=== PATIENT | male | born 1935 | race American Indian/Alaskan Native ===

== ENCOUNTER 2017-11-14 10:44 | Outpatient (CLI) | payer MEDICARE ==
--- NOTE | 2017-11-14 11:49 | Cat Scan Report ---
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 No mucosal thickening, fluid level or mass. Right mastoid air cells are well pneumatized. Right middle ear and the external ear and internal ear appears unremarkable. Internal auditory canal appears normal. The left external and internal auditory canals and middle ear appears unremarkable. There is opacification noted of the left mastoid air cells with air fluid levels. Impression: Acute left mastoiditis with air fluid levels suggestive abscesses.
== END 2017-11-14 10:45 | disposition home or self-care (01) ==
LOC: CT 10:44
PROVIDERS: ATTEND Otolaryngology
DX: H65.22 Chronic serous otitis media, left ear (principal); H70.002 Acute mastoiditis without complications, left ear; I10 Essential (primary) hypertension; J44.9 Chronic obstructive pulmonary disease, unspecified; J45.909 Unspecified asthma, uncomplicated; E78.00 Pure hypercholesterolemia, unspecified
CPT/HCPCS: 36415; 70480; 82565; 84520

== ENCOUNTER 2017-11-27 10:42 | Inpatient (IN) | payer MEDICARE ==
[2017-11-27 13:42] LABS: Basophils # (Auto) 0.1 K/mm3 (0.0-0.1); Basophils % (Auto) 0.8 % (0.0-1.8); Eosinophils % (Auto) 0.2 % (0.0-4.3); Hematocrit 38.4 % (35.5-45.6); Hemoglobin 12.8 gm/dl (11.8-15.2); Lymphocytes # (Auto) 0.9 K/mm3 (1.2-5.4); Lymphocytes % (Auto) 8.4 % (13.4-35.0); Mean Corpuscular HGB Conc 33 % (32-34); Mean Corpuscular Hemoglobin 29 pg (28-32); Mean Corpuscular Volume 86 fl (84-94); Monocytes # (Auto) 0.6 K/mm3 (0.0-0.8); Monocytes % (Auto) 5.8 % (0.0-7.3); Platelet Count 192 K/mm3 (140-440); Red Blood Count 4.47 M/mm3 (3.65-5.03); Red Cell Distribution Width 13.3 % (13.2-15.2)
[2017-11-27] MEDS ORDERED: NACL 0.9% 1000 ML 1,000 ML IV ONE (13:48)
--- NOTE | 2017-11-27 13:48 | Emergency Department Report ---
- General Chief complaint: Weakness Stated complaint: LATHARGIC Time Seen by Provider: 11/27/17 13:44 Source: patient Mode of arrival: Stretcher Limitations: No Limitations - History of Present Illness Initial comments: Patient is a 82-year-old male who is presenting with weakness. The patient's daughter states that 2 days ago he was unable to get himself out of has been laying in bed since. Patient has not been eating and drinking well for several weeks. MD Complaint: generalized weakness Onset/Timin -: Gradual, week(s) Location: generalized Severity: moderate Improves with: none Worsens with: none Associated Symptoms: loss of appetite. denies: chest pain, confusion, dark stools, dysuria, easy bruising, fever/chills, headaches, nausea/vomiting, myalgias, shortness of breath - Related Data Home Medications Medication Instructions Recorded Confirmed Last Taken Simvastatin 20 mg PO QDAY 07/19/13 05/17/15 05/16/15 NIFEdipine [NIFEdipine ER] 60 mg PO DAILY 05/17/15 05/17/15 05/17/15 Allergies Allergy/AdvReac Type Severity Reaction Status Date / Time ibuprofen Allergy Hives Verified 11/27/17 11:50 nitroglycerin Allergy Rash Verified 07/19/13 14:37 [From Nitro-Dur] ED Review of Systems ROS: Stated complaint: LATHARGIC Other details as noted in HPI Comment: All other systems reviewed and negative ED Past Medical Hx - Past Medical History Hx Hypertension: Yes Hx Heart Attack/AMI: No Hx Diabetes: Yes Hx Liver Disease: No Hx Renal Disease: Yes (acute renal failure secondary to obstruction 07/2013 ( resolved)) Hx Sickle Cell Disease: No Hx Headaches / Migraines: Yes ("MIGRAINES") Hx Seizures: No Hx Kidney Stones: Yes Hx Asthma: Yes Hx COPD: Yes ("touch of emphysema". does not use inhaler) Additional medical history: irregular heart beat - Surgical History Hx Pacemaker: No Hx Internal Defibrillator: No Additional Surgical History: hernia x 3. prostate surgery - Social History Smoking Status: Former Smoker Substance Use Type: None - Medications Home Medications: Home Medications Medication Instructions Recorded Confirmed Last Taken Type Simvastatin 20 mg PO QDAY 07/19/13 05/17/15 05/16/15 History NIFEdipine [NIFEdipine ER] 60 mg PO DAILY 05/17/15 05/17/15 05/17/15 History ED Physical Exam - General Limitations: No Limitations General appearance: alert, in no apparent distress - Head Head exam: Present: atraumatic, normocephalic - Eye Eye exam: Present: normal appearance - ENT ENT exam: Present: mucous membranes moist - Neck Neck exam: Present: normal inspection - Respiratory Respiratory exam: Present: normal lung sounds bilaterally. Absent: respiratory distress - Cardiovascular Cardiovascular Exam: Present: regular rate, normal rhythm. Absent: systolic murmur, diastolic murmur, rubs, gallop - GI/Abdominal GI/Abdominal exam: Present: soft, normal bowel sounds - Rectal Rectal exam: Present: deferred - Extremities Exam Extremities exam: Present: normal inspection - Back Exam Back exam: Present: normal inspection - Neurological Exam Neurological exam: Present: alert, oriented X3 - Psychiatric Psychiatric exam: Present: normal affect, normal mood - Skin Skin exam: Present: warm, dry, intact, normal color. Absent: rash ED Course Vital Signs 11/27/17 11:51 Temperature 97.9 F Pulse Rate 96 H Respiratory 16 Rate Blood Pressure 136/74 O2 Sat by Pulse 96 Oximetry ED Medical Decision Making - Lab Data Result diagrams: 11/27/17 13:05 11/27/17 13:05 - EKG Data -: EKG Interpreted by Me - EKG Data Interpretation: other (EKG shows sinus rhythm rate of 90 normal axis normal intervals is no ST segment elevations or depressions time of interpretation is 1342) - Medical Decision Making She was 82-year-old [place] male who is presenting with weakness patient was unable to ambulate stand last 2 days patient's has a baseline B and creatinine 20 and 1.4 on November 14 of this year today this is double patient is showing clinical signs of dehydration and will be admitted to Dr. Haynes at this time Critical care attestation.: If time is entered above; I have spent that time in minutes in the direct care of this critically ill patient, excluding procedure time. ED Disposition Clinical Impression: Acute renal injury, Dehydration Disposition: OP ADMIT IP TO THIS HOSP Is pt being admited?: Yes Does the pt Need Aspirin: No Condition: Stable
[2017-11-27 14:16] LABS: Calcium 8.9 mg/dL (8.4-10.2)
--- NOTE | 2017-11-27 14:58 | History and Physical Report ---
History of Present Illness Chief complaint: He keeps getting weak History of present illness: 82 YO Male with HTN, DM,COPD, ASthma, Nephrolithiasis, Migraine Headache, presents to ED for evaluation. Pt confused and unable to provide history, but history provided by . As per , the patient has experienced weakness, decreased appetite and resulting weight loss, and confusion over the past 2 months with worsening symptoms over the past 2 days. Over the past 2 days, pt has been unable to get himself out of bed, has not been eating and drinking, and has increased confusion. No reports of fever, chills, CP, Palpitations, NVD , Syncope, Trauma, BRBPR, Vertigo, Seizures, loss of bowel/bladder continence, neck pain, skin rash, or known recent ill contacts. Pt seen and evaluated in ED and found to have UTI, complicated by encephalopathy, and Acute Renal Failure. Pt admitted to medical floor. Pt is able to protect his airway. Past History Past Medical History: COPD, diabetes, hypertension, migraines, renal failure Past Surgical History: hernia repair, Other (Prostate Cancer surgery) Social history: , lives with family. denies: smoking, alcohol abuse, prescription drug abuse Family history: hypertension Medications and Allergies Allergies Allergy/AdvReac Type Severity Reaction Status Date / Time ibuprofen Allergy Hives Verified 11/27/17 11:50 nitroglycerin Allergy Rash Verified 07/19/13 14:37 [From Nitro-Dur] Home Medications Medication Instructions Recorded Confirmed Last Taken Type Simvastatin 20 mg PO QDAY 07/19/13 11/27/17 05/16/15 History Review of Systems ROS unobtainable: due to mental status Exam - Constitutional Vitals: Temp Pulse Resp BP Pulse Ox 97.9 F 96 H 16 136/74 96 11/27/17 11:51 11/27/17 11:51 11/27/17 11:51 11/27/17 11:51 11/27/17 11:51 General appearance: Present: mild distress, cachectic - EENT Eyes: Present: PERRL ENT: hearing intact, clear oral mucosa, poor dentition - Neck Neck: Present: supple, normal ROM - Respiratory Respiratory effort: normal Respiratory: bilateral: CTA - Cardiovascular Heart Sounds: Present: S1 & S2. Absent: rub, click - Extremities Extremities: pulses symmetrical, No edema Peripheral Pulses: within normal limits - Abdominal General gastrointestinal: Present: soft, non-tender, non-distended, normal bowel sounds Male genitourinary: Present: normal - Integumentary Integumentary: Present: clear, warm, dry - Musculoskeletal Musculoskeletal: gait normal, strength equal bilaterally - Psychiatric Psychiatric: appropriate mood/affect, intact judgment & insight - Neurologic Neurologic: CNII-XII intact, moves all extremities Results - Labs CBC & Chem 7: 11/27/17 13:05 11/27/17 13:05 Labs: Abnormal lab results 11/27/17 11/27/17 Range/Units 13:05 13:05 Lymph % (Auto) 8.4 L (13.4-35.0) % Lymph # 0.9 L (1.2-5.4) K/mm3 Seg Neutrophils % 84.8 H (40.0-70.0) % Seg Neutrophils # 9.2 H (1.8-7.7) K/mm3 Carbon Dioxide 20 L (22-30) mmol/L BUN 46 H (9-20) mg/dL Creatinine 2.0 H (0.8-1.5) mg/dL Glucose 180 H (75-100) mg/dL Albumin 3.0 L (3.9-5) g/dL Assessment and Plan - Patient Problems (1) UTI (urinary tract infection) Current Visit: Yes Status: Acute Plan to address problem: IV abx, IVF, monitor uop q shift, (2) Metabolic acidosis Current Visit: Yes Status: Acute Plan to address problem: IVF resuscitation, repeat bmp, treat uti (3) Encephalopathy Current Visit: Yes Status: Acute Plan to address problem: CT head, neuro checks, aspiration precautions, fall precautions, treat uti (4) Diabetes mellitus Current Visit: No Status: Chronic Qualifiers: Diabetes mellitus type: type 2 Diabetes mellitus complication detail: with chronic kidney disease Qualified Code(s): E11.22 - Type 2 diabetes mellitus with diabetic chronic kidney disease Plan to address problem: ADA diet, insulin, accu check (5) HTN (hypertension) Onset Date: 07/20/13 Current Visit: No Status: Chronic Qualifiers: Hypertension type: essential hypertension Qualified Code(s): I10 - Essential (primary) hypertension Plan to address problem: monitor BP q shift, continue medical management (6) ARF (acute renal failure) Current Visit: Yes Status: Acute Qualifiers: Acute renal failure type: with acute tubular necrosis Qualified Code(s): N17.0 - Acute kidney failure with tubular necrosis Plan to address problem: monitor uop q shift, urine electrolytes, IVF resuscitation,. (7) DVT prophylaxis Current Visit: Yes Status: Acute
[2017-11-27] MEDS ORDERED: ZOFRAN IV PRN (15:18)
[2017-11-27] MEDS ORDERED: MILK OF MAGNESIA PO PRN (15:18)
[2017-11-27] MEDS ORDERED: DULCOLAX PR PRN (15:18)
[2017-11-27] MEDS ORDERED: TYLENOL PO PRN (15:18)
[2017-11-27] MEDS ORDERED: PROVENTIL IH PRN (15:18)
[2017-11-27 15:42] LABS: Bacteria,Urine 2+ /HPF (Negative); Bilirubin,Urine NEG (Negative); Blood,Urine MOD (Negative); Color,Urine Yellow (Yellow); Mucus,Urine FEW /HPF; Nitrite,Urine NEG (Negative); Renal Epithelial Cells,Urine 3 /LPF; Urobilinogen,Urine < 2.0 mg/dL (<2.0)
[2017-11-27 15:43] LABS: WBC,Urine > 182.0 /HPF (0.0-6.0)
--- NOTE | 2017-11-27 15:49 | Cat Scan Report ---
FINAL REPORT EXAM: CT HEAD/BRAIN WO CON HISTORY: weakness/confusion TECHNIQUE: CT examination of the head without IV contrast PRIORS: Sinus CT 11/14/2017 FINDINGS: Multifocal opacity is again present in the left mastoid air cells. Small fluid level again noted inferiorly and posteriorly. Degree of opacity is slightly decreased. Once again, left middle ear cavity clear as are the right mastoid air cells and right middle ear cavity. Paranasal sinuses are clear. Bone windows demonstrate no acute fracture. There is ventricular and sulcal prominence compatible with global cerebrocortical atrophy. The brain contains no mass, mass effect, hemorrhage, or acute infarct. There is no extra-axial intracranial bleed, brain bleed, or midline shift. IMPRESSION: No acute CVA, intracranial bleed, or brain mass Decreased prominence of opacity in the left mastoid air cells. Small fluid levels remaining. Findings again may be secondary to eustachian tube dysfunction or slight improvement of acute left mastoiditis
[2017-11-27 18:04] LABS: Free T4 (Free Thyroxine) 1.45 ng/dL (0.76-1.46)
[2017-11-27] MEDS ORDERED: NACL 0.9% 250ML 250 ML IV ONE (20:00)
[2017-11-27] MEDS: cefTRIAXone 2 GM in NACL 0.9% 20 ML IV SCH (21:18)
[2017-11-27] MEDS ORDERED: PEPCID ONE (22:02)
[2017-11-27] MEDS: PEPCID PO SCH (22:15)
[2017-11-27] MEDS: PRAVACHOL PO SCH (23:10)
[2017-11-28 04:30] LABS: Creatinine,Urine 115.7 mg/dL (0.1-20.0)
[2017-11-28] MEDS: PEPCID PO SCH ×2 (09:06→21:34)
[2017-11-28] MEDS: PROCARDIA XL PO SCH (09:07)
[2017-11-28] MEDS ORDERED: D50W (25GM) Syringe IV PRN (09:30)
[2017-11-28] MEDS ORDERED: NON-FORMULARY (Nifedipine [Nifedipine Er] 60 MG) PO SCH (10:00)
[2017-11-28] MEDS ORDERED: ROCEPHIN/NS 2 GM/100 ML 2 GM/100 ML BAG IV SCH (10:00)
[2017-11-28] MEDS ORDERED: NON-FORMULARY (Simvastatin [Simvastatin] 20 MG) PO SCH (10:00)
[2017-11-28] MEDS: NACL 0.9% 1000 ML 1,000 ML IV SCH ×2 (11:08→22:57)
[2017-11-28 11:12] LABS: Calcium 8.9 mg/dL (8.4-10.2)
[2017-11-28] MEDS: NOVOLOG SUB-Q SCH ×3 (11:20→23:35)
--- NOTE | 2017-11-28 11:42 | Progress Note ---
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 Ruano per due to insurance issues who presents with confusion and failure to thrive symptoms. He is under the care of Dr. Watkins and had kidney function checked on 11/14/17 and creatinine was 1.4. Now his creatinine is 2.0 with evidence of UTI. -Suspect early sepsis as evident of HR 96, RR 20 with UTI, poa: on iv abx, I ordered urine culture and blood culture -ARF on CKD III: ordered ivf, consulted Dr. Watkins -Acute encephalopathy due to above, improved -Adult FTT and malnutrition, mild, albumin 3.0: consult melting supervisor, rehab offered but patient and declined at this time -H/o prostate cancer, lost to follow-up because Urologist's didn't take his insurance at that time: get renal u/s for obstructive symptoms, if positive consult urology, strongly encourage outpt urology follow up. -Uncontrolled dm type 2 with hyperglycemia: ada diet, start ssi History Interval history: Patient was seen and examined. Follow-up on current diagnosis of confusion. Overnight uneventful. Patient denies any chest pain, shortness breath, nausea/ vomiting or severe headaches. Imaging, nursing note, chart, labs and old chart reviewed. Discussed with patient. , brother and nephrew at bedside. Hospitalist Physical - Physical exam Narrative exam: GEN: thin frail NAD, AWAKE, ALERT, ORIENTATED x 3 HEENT: NCAT, EOMI, PERRL, OP Clear NECK: supple, no adenopathy, no thyromegaly, no JVD CVS/HEART: RRR, NORMAL S1S2, NO JVD, pulses present bilaterally CHEST/LUNGS: CTA B, Symmetrical chest expansion, good air entry bilaterally GI/Abdomen: soft, nontender, good bowel sounds, no guarding or rebound /Bladder: + suprapubic tenderness, no CVA or paraspinal tenderness EXT/Skin: no c/c/e, no obvious rash MSK: FROM x 4 Neuro: CN 2-12 grossly intact, no new focal deficits Psych: calm - Constitutional Vitals: Temp Pulse Resp BP Pulse Ox 98.7 F 83 16 125/72 95 11/28/17 07:34 11/28/17 10:00 11/28/17 07:34 11/28/17 07:34 11/28/17 08:56 General appearance: Present: cachectic. Absent: mild distress Results - Labs CBC & Chem 7: 11/27/17 13:05 11/28/17 10:16 Labs: Laboratory Last Values WBC 10.9 K/mm3 (4.5-11.0) 11/27/17 13:05 RBC 4.47 M/mm3 (3.65-5.03) 11/27/17 13:05 Hgb 12.8 gm/dl (11.8-15.2) 11/27/17 13:05 Hct 38.4 % (35.5-45.6) 11/27/17 13:05 MCV 86 fl (84-94) 11/27/17 13:05 MCH 29 pg (28-32) 11/27/17 13:05 MCHC 33 % (32-34) 11/27/17 13:05 RDW 13.3 % (13.2-15.2) 11/27/17 13:05 Plt Count 192 K/mm3 (140-440) 11/27/17 13:05 Lymph % (Auto) 8.4 % (13.4-35.0) L 11/27/17 13:05 [place] % (Auto) 5.8 % (0.0-7.3) 11/27/17 13:05 Eos % (Auto) 0.2 % (0.0-4.3) 11/27/17 13:05 Baso % (Auto) 0.8 % (0.0-1.8) 11/27/17 13:05 Lymph # 0.9 K/mm3 (1.2-5.4) L 11/27/17 13:05 [place] # 0.6 K/mm3 (0.0-0.8) 11/27/17 13:05 Eos # 0.0 K/mm3 (0.0-0.4) 11/27/17 13:05 Baso # 0.1 K/mm3 (0.0-0.1) 11/27/17 13:05 Seg Neutrophils % 84.8 % (40.0-70.0) H 11/27/17 13:05 Seg Neutrophils # 9.2 K/mm3 (1.8-7.7) H 11/27/17 13:05 Sodium 141 mmol/L (137-145) 11/28/17 10:16 Potassium 3.6 mmol/L (3.6-5.0) 11/28/17 10:16 Chloride 104.6 mmol/L (98-107) 11/28/17 10:16 Carbon Dioxide 21 mmol/L (22-30) L 11/28/17 10:16 Anion Gap 19 mmol/L 11/28/17 10:16 BUN 35 mg/dL (9-20) H 11/28/17 10:16 Creatinine 1.4 mg/dL (0.8-1.5) 11/28/17 10:16 Estimated GFR 59 ml/min 11/28/17 10:16 BUN/Creatinine Ratio 25 % 11/28/17 10:16 Glucose 194 mg/dL (75-100) H 11/28/17 10:16 POC Glucose 240 (70-105) H 11/28/17 11:19 Calcium 8.9 mg/dL (8.4-10.2) 11/28/17 10:16 Total Bilirubin 0.70 mg/dL (0.1-1.2) 11/27/17 13:05 AST 21 units/L (5-40) 11/27/17 13:05 ALT 15 units/L (7-56) 11/27/17 13:05 Alkaline Phosphatase 91 units/L (35-129) 11/27/17 13:05 Total Protein 7.1 g/dL (6.3-8.2) 11/27/17 13:05 Albumin 3.0 g/dL (3.9-5) L 11/27/17 13:05 Albumin/Globulin Ratio 0.7 % 11/27/17 13:05 TSH 1.380 mlU/mL (0.270-4.200) 11/27/17 15:35 Free T4 1.45 ng/dL (0.76-1.46) 11/27/17 15:35 Urine Color Yellow (Yellow) 11/27/17 15:10 Urine Turbidity Cloudy (Clear) 11/27/17 15:10 Urine pH 5.0 (5.0-7.0) 11/27/17 15:10 Ur Specific [place] 1.014 (1.003-1.030) 11/27/17 15:10 Urine Protein 30 mg/dl mg/dL (Negative) 11/27/17 15:10 Urine Glucose (UA) Neg mg/dL (Negative) 11/27/17 15:10 Urine Ketones Neg mg/dL (Negative) 11/27/17 15:10 Urine Blood Mod (Negative) 11/27/17 15:10 Urine Nitrite Neg (Negative) 11/27/17 15:10 Urine Bilirubin Neg (Negative) 11/27/17 15:10 Urine Urobilinogen < 2.0 mg/dL (<2.0) 11/27/17 15:10 Ur Leukocyte Esterase Lg (Negative) 11/27/17 15:10 Urine WBC (Auto) > 182.0 /HPF (0.0-6.0) H 11/27/17 15:10 Urine RBC (Auto) 24.0 /HPF (0.0-6.0) 11/27/17 15:10 U Epithel Cells (Auto) 1.0 /HPF (0-13.0) 11/27/17 15:10 Urine Bacteria (Auto) 2+ /HPF (Negative) 11/27/17 15:10 Urine WBC Clumps 2+ /HPF 11/27/17 15:10 Ur Renal Epithelial Cell 3 /LPF 11/27/17 15:10 Urine Mucus Few /HPF 11/27/17 15:10 Urine Creatinine 115.7 mg/dL (0.1-20.0) H 11/28/17 04:00 Urine Sodium 27 mmol/L 11/28/17 04:00
--- NOTE | 2017-11-28 14:35 | Ultrasound Report ---
ULTRASOUND RENAL INDICATION: Acute renal failure, prostate cancer. COMPARISON: 05/17/2015. FINDINGS: Renal sonography again suggests top normal/borderline renal cortical echogenicity. Grossly preserved contours. No hydronephrosis. RIGHT KIDNEY measures 10.3 x 4 x 4.3 cm with cortical thickness of 1.1 cm. A 1.6 x 1.4 cm right upper renal cortical cyst again noted. LEFT KIDNEY estimated at 10.5 x 4.7 x 5.2 cm with cortical thickness of 1.5 cm. URINARY BLADDER suboptimally distended and assessed. CONCLUSION: No acute renal abnormality with stable right renal cyst and slight underlying medical renal disease possible sonographically, as described. Please correlate. Thank you for the opportunity to participate in this patient's care.
--- NOTE | 2017-11-28 14:46 | Consultation ---
History of Present Illness - Reason for Consult Consult date: 11/28/17 acute renal failure, chronic renal failure Requesting physician: ISAIAH DAVIS - History of Present Illness This is a 82yo AA M with history of HTN, DM, COPD, Asthma, Nephrolithiasis, CKD stage [address] Watkins in our office, who presents to ED with complaints of confusion, generalized fatigue, weakness and poor appetite. As per pt's above symptoms progressed over the past 2 months. Sympoms worsened over the last 2 days, to the point that pt was not able to get himself out of bed, has not been eating and drinking, and has increased confusion. Labs showed evidence of UTI on UA, BUN/Cr was elevated at 46/2.0mg/dl from baseline Cr at around 1/3- 1.6mg/dl as outpatient. Renal consult is requested for management of JAMEY on CKD. pt seen and examined at bedside, more awake, alert today after receiving IVF, denies fever, chills, nausea, vomiting, diarrhea, constipation, CP, SOB, palpitations. pt denies recent NSAIDs use, or IV contrast exposure. Past History Past Medical History: COPD, diabetes, hypertension, migraines, renal failure Past Surgical History: hernia repair, Other (Prostate Cancer surgery) Social history: , lives with family. denies: smoking, alcohol abuse, prescription drug abuse Family history: hypertension Medications and Allergies Allergies Allergy/AdvReac Type Severity Reaction Status Date / Time ibuprofen Allergy Hives Verified 11/27/17 11:50 nitroglycerin Allergy Rash Verified 07/19/13 14:37 [From Nitro-Dur] Home Medications Medication Instructions Recorded Confirmed Last Taken Type Simvastatin 20 mg PO QDAY 07/19/13 11/27/17 05/16/15 History ALBUTEROL Inhaler 90 mcg INHALATION PRN PRN 11/27/17 11/27/17 Unknown History Augmentin 875-125 Tablet 875 mg PO DAILY 11/27/17 11/27/17 Unknown History Doxazosin 2 mg PO DAILY 11/27/17 11/27/17 Unknown History Fluticasone Furoate 50 mcg INHALATION DAILY 11/27/17 11/27/17 Unknown History Folic Acid 1 mg PO DAILY 11/27/17 11/27/17 Unknown History Furosemide 40 mg PO DAILY 11/27/17 11/27/17 Unknown History Gabapentin 100 mg PO BID 11/27/17 11/27/17 Unknown History Glipizide 5 mg PO DAILY 11/27/17 11/27/17 Unknown History Klor-Con M10 10 meq PO DAILY 11/27/17 11/27/17 Unknown History Losartan Potassium 100 mg PO DAILY 11/27/17 11/27/17 Unknown History Metoprolol Succinate 50 mg PO BID 11/27/17 11/27/17 Unknown History Vitamin D2 50,000 units PO QWEEK 11/27/17 11/27/17 Unknown History Active Meds: Active Medications Acetaminophen (Tylenol) 650 mg PO Q4H PRN PRN Reason: Pain MILD(1-3)/Fever >100.5/TAVARES Albuterol (Proventil) 2.5 mg IH Q4HRT PRN PRN Reason: Shortness Of Breath Bisacodyl (Dulcolax) 10 mg MI QDAY PRN PRN Reason: Constipation unrelieved by MOM Dextrose (D50w (25gm) Syringe) 50 ml IV PRN PRN PRN Reason: Hypoglycemia Famotidine (Pepcid) 20 mg PO BID [facility] Last Admin: 11/28/17 09:06 Dose: 20 mg Ceftriaxone Sodium 2 gm/ (Sodium Chloride) 20 mls @ 20 mls/10 min IV Q24H [facility] Last Admin: 11/27/17 21:18 Dose: 20 mls/10 min Sodium Chloride (Nacl 0.9% 1000 Ml) 1,000 mls @ 100 mls/hr IV DIRECT [facility] Last Admin: 11/28/17 11:08 Dose: 100 mls/hr Insulin Aspart (Novolog) 0 units SUB-Q ACHS [facility] PRN Reason: Protocol Last Admin: 11/28/17 11:20 Dose: 2 units Nifedipine (Procardia Xl) 60 mg PO QDAY [facility] Last Admin: 11/28/17 09:07 Dose: 60 mg Ondansetron HCl (Zofran) 4 mg IV Q8H PRN PRN Reason: N/V unrelieved by Reglan Pravastatin Sodium (Pravachol) 40 mg PO QHS [facility] Last Admin: 11/27/17 23:10 Dose: 40 mg Review of Systems All systems: negative Constitutional: weight loss, fatigue, weakness, poor appetite Exam - Vital Signs Vital signs: Vital Signs Temp Pulse Resp BP Pulse Ox 97.9 F 96 H 16 136/74 96 11/27/17 11:51 11/27/17 11:51 11/27/17 11:51 11/27/17 11:51 11/27/17 11:51 - General Appearance General appearance: appears stated age, frail EENT: ATNC, PERRL, mucous membranes dry Neck: Present: neck supple Respiratory: Clear to Ascultation Heart: regular, S1S2 Gastrointestinal: Present: normoactive bowel sounds Integumentary: no rash, other (no edema ) Neurologic: no focal deficit, alert and oriented x3, strength 5/5, CN 3-12 intact Psychiatric: mood/affect appropriate, cooperative Results - Lab Results 11/27/17 13:05 11/28/17 10:16 Most recent lab results Calcium 8.9 mg/dL (8.4-10.2) 11/28/17 10:16 Urine Creatinine 115.7 mg/dL (0.1-20.0) H 11/28/17 04:00 Urine Sodium 27 mmol/L 11/28/17 04:00 Laboratory Tests 11/27/17 11/27/17 11/27/17 13:05 15:10 15:35 Calcium 8.9 Total Bilirubin 0.70 AST 21 ALT 15 Alkaline Phosphatase 91 Total Protein 7.1 Albumin 3.0 L Albumin/Globulin Ratio 0.7 TSH 1.380 Free T4 1.45 Urine Color Yellow Urine Turbidity Cloudy Urine pH 5.0 Ur Specific [place] 1.014 Urine Protein 30 mg/dl Urine Glucose (UA) Neg Urine Ketones Neg Urine Blood Mod Urine Nitrite Neg Urine Urobilinogen < 2.0 Ur Leukocyte Esterase Lg Urine WBC (Auto) > 182.0 H Urine RBC (Auto) 24.0 U Epithel Cells (Auto) 1.0 Urine Bacteria (Auto) 2+ Urine WBC Clumps 2+ Ur Renal Epithelial Cell 3 Urine Mucus Few Urine Creatinine Urine Sodium 11/28/17 04:00 Calcium Total Bilirubin AST ALT Alkaline Phosphatase Total Protein Albumin Albumin/Globulin Ratio TSH Free T4 Urine Color Urine Turbidity Urine pH Ur Specific [place] Urine Protein Urine Glucose (UA) Urine Ketones Urine Blood Urine Nitrite Urine Urobilinogen Ur Leukocyte Esterase Urine WBC (Auto) Urine RBC (Auto) U Epithel Cells (Auto) Urine Bacteria (Auto) Urine WBC Clumps Ur Renal Epithelial Cell Urine Mucus Urine Creatinine 115.7 H Urine Sodium 27 Assessment and Plan - Patient Problems (1) Acute renal injury Current Visit: Yes Status: Acute Plan to address problem: most likely pre-renal azotemia in the setting of decreased po intake. Urine Na low at 27. renal function improving already with IVF. Cont NS at 100ml/hr, cont ABXs for treatment of UTI, avoid nephrotoxins, NSAIDs , IV contrast. Will monitor lytes/renal indices and make further recommendations. (2) Dehydration Current Visit: Yes Status: Acute Plan to address problem: cont IV NS (3) UTI (urinary tract infection) Current Visit: Yes Status: Acute Plan to address problem: cont ABX w/ rocephin, no renal adjustment needed. (4) Chronic kidney disease, stage III (moderate) Current Visit: No Status: Chronic Plan to address problem: likely due to underlying hypertensive nephrosclerosis (5) Diabetes mellitus Current Visit: No Status: Chronic Qualifiers: Diabetes mellitus type: type 2 Diabetes mellitus complication detail: with chronic kidney disease Qualified Code(s): E11.22 - Type 2 diabetes mellitus with diabetic chronic kidney disease Plan to address problem: glucose control as per primary attending (6) HTN (hypertension) Onset Date: 07/20/13 Current Visit: No Status: Chronic Qualifiers: Hypertension type: essential hypertension Qualified Code(s): I10 - Essential (primary) hypertension Plan to address problem: BP controlled
[2017-11-28] MEDS: cefTRIAXone 2 GM in NACL 0.9% 20 ML IV SCH (17:45)
[2017-11-28] MEDS: PRAVACHOL PO SCH (21:34)
[2017-11-29 05:22] LABS: Hematocrit 34.2 % (35.5-45.6); Hemoglobin 11.1 gm/dl (11.8-15.2); Mean Corpuscular HGB Conc 33 % (32-34); Mean Corpuscular Hemoglobin 28 pg (28-32); Mean Corpuscular Volume 86 fl (84-94); Platelet Count 221 K/mm3 (140-440); Red Blood Count 3.99 M/mm3 (3.65-5.03); Red Cell Distribution Width 13.4 % (13.2-15.2)
[2017-11-29 05:49] LABS: BUN/Creatinine Ratio 18; Blood Urea Nitrogen 21 mg/dL (9-20); Calcium 7.9 mg/dL (8.4-10.2); Hemolysis Index 0
[2017-11-29] MEDS: NOVOLOG SUB-Q SCH ×4 (07:30→22:26)
[2017-11-29] MEDS: PROCARDIA XL PO SCH (11:28)
[2017-11-29] MEDS: PEPCID PO SCH ×2 (11:28→22:07)
[2017-11-29] MEDS: NACL 0.9% 1000 ML 1,000 ML IV SCH (11:29)
--- NOTE | 2017-11-29 12:42 | Progress Note ---
Assessment and Plan - Patient Problems (1) Acute renal injury Current Visit: Yes Status: Acute Plan to address problem: most likely pre-renal azotemia in the setting of decreased po intake. renal function improving with IVF. Cont NS at 50ml/hr until po intake improved, cont ABXs for treatment of UTI, awaiting UCx result. (2) Dehydration Current Visit: Yes Status: Acute Plan to address problem: cont IV NS (3) UTI (urinary tract infection) Current Visit: Yes Status: Acute Plan to address problem: cont ABX w/ rocephin, no renal adjustment needed. awaiting UCx (4) Chronic kidney disease, stage III (moderate) Current Visit: No Status: Chronic Plan to address problem: likely due to underlying hypertensive nephrosclerosis (5) Diabetes mellitus Current Visit: No Status: Chronic Qualifiers: Diabetes mellitus type: type 2 Diabetes mellitus complication detail: with chronic kidney disease Qualified Code(s): E11.22 - Type 2 diabetes mellitus with diabetic chronic kidney disease Plan to address problem: glucose control as per primary attending (6) HTN (hypertension) Onset Date: 07/20/13 Current Visit: No Status: Chronic Qualifiers: Hypertension type: essential hypertension Qualified Code(s): I10 - Essential (primary) hypertension Plan to address problem: BP controlled Subjective Date of service: 11/29/17 Principal diagnosis: JAMEY Interval history: pt awake, alert, in NAD Objective - Vital Signs Vital signs: Vital Signs - 12hr 11/29/17 11/29/17 11/29/17 01:07 05:20 09:10 Temperature 98.3 F 97.3 F L Pulse Rate 73 89 Respiratory 18 Rate Blood Pressure 120/70 123/74 O2 Sat by Pulse 98 Oximetry - General Appearance General appearance: well-developed, well-nourished, appears stated age EENT: ATNC, PERRL, mucous membranes moist Neck: no JVD Respiratory: Present: Clear to Ascultation Cardiology: regular, S1S2 Gastrointestinal: normoactive bowel sounds Integumentary: no rash, other (no edema ) Neurologic: no focal deficit, alert and oriented x3, strength 5/5, CN 3-12 intact Psychiatric: mood/affect appropriate, cooperative - Lab 11/29/17 04:40 11/29/17 04:40 Most recent lab results Calcium 7.9 mg/dL (8.4-10.2) L 11/29/17 04:40 Urine Creatinine 115.7 mg/dL (0.1-20.0) H 11/28/17 04:00 Urine Sodium 27 mmol/L 11/28/17 04:00
--- NOTE | 2017-11-29 13:48 | Progress Note ---
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 Ruano per due to insurance issues who presents with confusion and failure to thrive symptoms. He is under the care of Dr. Watkins and had kidney function checked on 11/14/17 and creatinine was 1.4. Now his creatinine is 2.0 with evidence of UTI. -Suspect early sepsis as evident of HR 96, RR 20 with UTI, poa: on iv abx, I ordered urine culture and blood culture -ARF on CKD III: ordered ivf, consulted Dr. Watkins -Acute encephalopathy due to above, improved -Adult FTT and malnutrition, mild, albumin 3.0: consult sash installer, rehab offered but patient and declined at this time -H/o prostate cancer, lost to follow-up because Urologist's didn't take his insurance at that time: get renal u/s for obstructive symptoms, if positive consult urology, strongly encourage outpt urology follow up. -Uncontrolled dm type 2 with hyperglycemia: ada diet, start ssi ARF resolved Replace potassium Await urine ctx Anticipate discharge tomorrow. History Interval history: Patient was seen and examined. Follow-up on current diagnosis of confusion. Overnight uneventful. Patient denies any chest pain, shortness breath, nausea/ vomiting or severe headaches. Imaging, nursing note, chart, labs and old chart reviewed. Discussed with patient. , at bedside. Hospitalist Physical - Physical exam Narrative exam: GEN: thin frail NAD, AWAKE, ALERT, ORIENTATED x 3 HEENT: NCAT, EOMI, PERRL, OP Clear NECK: supple, no adenopathy, no thyromegaly, no JVD CVS/HEART: RRR, NORMAL S1S2, NO JVD, pulses present bilaterally CHEST/LUNGS: CTA B, Symmetrical chest expansion, good air entry bilaterally GI/Abdomen: soft, nontender, good bowel sounds, no guarding or rebound /Bladder: + suprapubic tenderness, no CVA or paraspinal tenderness EXT/Skin: no c/c/e, no obvious rash MSK: FROM x 4 Neuro: CN 2-12 grossly intact, no new focal deficits Psych: calm - Constitutional Vitals: Temp Pulse Resp BP Pulse Ox 97.3 F L 89 18 123/74 98 11/29/17 09:10 11/29/17 09:10 11/29/17 05:20 11/29/17 09:10 11/29/17 09:10 General appearance: Present: cachectic. Absent: mild distress Results - Labs CBC & Chem 7: 11/29/17 04:40 11/29/17 04:40 Labs: Laboratory Last Values WBC 5.6 K/mm3 (4.5-11.0) 11/29/17 04:40 RBC 3.99 M/mm3 (3.65-5.03) 11/29/17 04:40 Hgb 11.1 gm/dl (11.8-15.2) L 11/29/17 04:40 Hct 34.2 % (35.5-45.6) L 11/29/17 04:40 MCV 86 fl (84-94) 11/29/17 04:40 MCH 28 pg (28-32) 11/29/17 04:40 MCHC 33 % (32-34) 11/29/17 04:40 RDW 13.4 % (13.2-15.2) 11/29/17 04:40 Plt Count 221 K/mm3 (140-440) 11/29/17 04:40 Lymph % (Auto) 8.4 % (13.4-35.0) L 11/27/17 13:05 [place] % (Auto) 5.8 % (0.0-7.3) 11/27/17 13:05 Eos % (Auto) 0.2 % (0.0-4.3) 11/27/17 13:05 Baso % (Auto) 0.8 % (0.0-1.8) 11/27/17 13:05 Lymph # 0.9 K/mm3 (1.2-5.4) L 11/27/17 13:05 [place] # 0.6 K/mm3 (0.0-0.8) 11/27/17 13:05 Eos # 0.0 K/mm3 (0.0-0.4) 11/27/17 13:05 Baso # 0.1 K/mm3 (0.0-0.1) 11/27/17 13:05 Seg Neutrophils % 84.8 % (40.0-70.0) H 11/27/17 13:05 Seg Neutrophils # 9.2 K/mm3 (1.8-7.7) H 11/27/17 13:05 Sodium 143 mmol/L (137-145) 11/29/17 04:40 Potassium 3.3 mmol/L (3.6-5.0) L 11/29/17 04:40 Chloride 108.2 mmol/L (98-107) H 11/29/17 04:40 Carbon Dioxide 21 mmol/L (22-30) L 11/29/17 04:40 Anion Gap 17 mmol/L 11/29/17 04:40 BUN 21 mg/dL (9-20) H 11/29/17 04:40 Creatinine 1.2 mg/dL (0.8-1.5) 11/29/17 04:40 Estimated GFR > 60 ml/min 11/29/17 04:40 BUN/Creatinine Ratio 18 % 11/29/17 04:40 Glucose 94 mg/dL (75-100) 11/29/17 04:40 POC Glucose 253 (70-105) H 11/29/17 12:26 Calcium 7.9 mg/dL (8.4-10.2) L 11/29/17 04:40 Total Bilirubin 0.70 mg/dL (0.1-1.2) 11/27/17 13:05 AST 21 units/L (5-40) 11/27/17 13:05 ALT 15 units/L (7-56) 11/27/17 13:05 Alkaline Phosphatase 91 units/L (35-129) 11/27/17 13:05 Total Protein 7.1 g/dL (6.3-8.2) 11/27/17 13:05 Albumin 3.0 g/dL (3.9-5) L 11/27/17 13:05 Albumin/Globulin Ratio 0.7 % 11/27/17 13:05 TSH 1.380 mlU/mL (0.270-4.200) 11/27/17 15:35 Free T4 1.45 ng/dL (0.76-1.46) 11/27/17 15:35 Urine Color Yellow (Yellow) 11/27/17 15:10 Urine Turbidity Cloudy (Clear) 11/27/17 15:10 Urine pH 5.0 (5.0-7.0) 11/27/17 15:10 Ur Specific [place] 1.014 (1.003-1.030) 11/27/17 15:10 Urine Protein 30 mg/dl mg/dL (Negative) 11/27/17 15:10 Urine Glucose (UA) Neg mg/dL (Negative) 11/27/17 15:10 Urine Ketones Neg mg/dL (Negative) 11/27/17 15:10 Urine Blood Mod (Negative) 11/27/17 15:10 Urine Nitrite Neg (Negative) 11/27/17 15:10 Urine Bilirubin Neg (Negative) 11/27/17 15:10 Urine Urobilinogen < 2.0 mg/dL (<2.0) 11/27/17 15:10 Ur Leukocyte Esterase Lg (Negative) 11/27/17 15:10 Urine WBC (Auto) > 182.0 /HPF (0.0-6.0) H 11/27/17 15:10 Urine RBC (Auto) 24.0 /HPF (0.0-6.0) 11/27/17 15:10 U Epithel Cells (Auto) 1.0 /HPF (0-13.0) 11/27/17 15:10 Urine Bacteria (Auto) 2+ /HPF (Negative) 11/27/17 15:10 Urine WBC Clumps 2+ /HPF 11/27/17 15:10 Ur Renal Epithelial Cell 3 /LPF 11/27/17 15:10 Urine Mucus Few /HPF 11/27/17 15:10 Urine Creatinine 115.7 mg/dL (0.1-20.0) H 11/28/17 04:00 Urine Sodium 27 mmol/L 11/28/17 04:00
[2017-11-29] MEDS ORDERED: K-DUR PO ONE (14:46)
[2017-11-29] MEDS: cefTRIAXone 2 GM in NACL 0.9% 20 ML IV SCH (17:27)
[2017-11-29] MEDS: PRAVACHOL PO SCH (22:07)
[2017-11-30] MEDS: NACL 0.9% 1000 ML 1,000 ML IV SCH (03:16)
[2017-11-30 06:30] LABS: BUN/Creatinine Ratio 11; Blood Urea Nitrogen 12 mg/dL (9-20); Calcium 7.9 mg/dL (8.4-10.2); Hemolysis Index 2
--- NOTE | 2017-11-30 09:07 | Discharge Summary ---
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 Ruano per due to insurance issues who presents with confusion and failure to thrive symptoms. He is under the care of Dr. Watkins and had kidney function checked on 11/14/17 and creatinine was 1.4. Now his creatinine is 2.0 with evidence of UTI. -Suspect early sepsis as evident of HR 96, RR 20 with UTI, poa: on iv abx, I ordered urine culture and blood culture -ARF on CKD III: ordered ivf, consulted Dr. Watkins -Acute encephalopathy due to above, improved -Adult FTT and malnutrition, mild, albumin 3.0: consult mathematical engineer, rehab offered but patient and declined at this time -H/o prostate cancer, lost to follow-up because Urologist's didn't take his insurance at that time: get renal u/s for obstructive symptoms, if positive consult urology, strongly encourage outpt urology follow up. -Uncontrolled dm type 2 with hyperglycemia: ada diet, start ssi Renal U/S reported as NAF ARF resolved Replace potassium Await urine ctx, d/w Dr. Beckwith, he will follow up Anticipate discharge Disposition: SD- TO HOME OR SELFCARE Time spent for discharge: 34 min Core Measure Documentation - Palliative Care Palliative Care/ Comfort Measures: Not Applicable - Core Measures Any of the following diagnoses?: none - VTE Discharge Requirements Deep Vein Thrombosis/Pulmonary Embolism Present on Admission: No Has pt received <5 days of overlap therapy or INR<2.0: No Anticoagulant overlap therapy prescribed at discharge: No Contraindication No Overlap Therapy order at DC: Not Indicated Exam - Physical Exam Narrative exam: GEN: thin frail NAD, AWAKE, ALERT, ORIENTATED x 3 HEENT: NCAT, EOMI, PERRL, OP Clear NECK: supple, no adenopathy, no thyromegaly, no JVD CVS/HEART: RRR, NORMAL S1S2, NO JVD, pulses present bilaterally CHEST/LUNGS: CTA B, Symmetrical chest expansion, good air entry bilaterally GI/Abdomen: soft, nontender, good bowel sounds, no guarding or rebound /Bladder: + suprapubic tenderness, no CVA or paraspinal tenderness EXT/Skin: no c/c/e, no obvious rash MSK: FROM x 4 Neuro: CN 2-12 grossly intact, no new focal deficits Psych: calm - Constitutional Vitals: Temp Pulse Resp BP Pulse Ox 99.2 F 86 20 141/80 93 11/30/17 08:22 11/30/17 08:22 11/30/17 06:25 11/30/17 08:22 11/30/17 08:22 Plan Activity: other (no strenous activity until cleared by PCP) Diet: low salt, diabetic Additional Instructions: 1. Please notice that Blood pressure medications have changed or discontinued as well as the water pill. 2. Follow up with Dr. Watkins for finalized urine culture and make sure bladder infection clears up. 3. MUST follow up with a Urologist, either Dr. Ruano or someone else [facility] to check prostate Follow up with: MITCHELL CARVER MD [Primary Care Provider] - 7 Days DAVID WATKINS MD [Staff Physician] - 7 Days SCOT RUANO MD [Staff Physician] - 7 Days Prescriptions: Cefuroxime [Ceftin] 500 mg PO Q12H #4 day NIFEdipine XL [Procardia Xl] 60 mg PO QDAY #30 tablet
[2017-11-30] MEDS: NOVOLOG SUB-Q SCH ×2 (09:19→14:12)
[2017-11-30] MEDS: PEPCID PO SCH (10:37)
[2017-11-30] MEDS: PROCARDIA XL PO SCH (10:37)
[2017-11-30 13:02] VITALS: BP 134/76
== END 2017-11-30 14:15 | disposition home or self-care (01) | DRG 871 ==
LOC: ED 10:42 → 3A 15:18 → 2B-ACE 20:24
PROVIDERS: ADMIT Internal Medicine; ATTEND Internal Medicine
DX: A41.9 Sepsis, unspecified organism (principal); G93.40 Encephalopathy, unspecified; N17.0 Acute kidney failure with tubular necrosis; N39.0 Urinary tract infection, site not specified; E87.2 Acidosis; J96.11 Chronic respiratory failure with hypoxia; E44.1 Mild protein-calorie malnutrition; J44.9 Chronic obstructive pulmonary disease, unspecified; G43.909 Migraine, unspecified, not intractable, without status migrainosus; E11.22 Type 2 diabetes mellitus with diabetic chronic kidney disease; R62.7 Adult failure to thrive; H91.90 Unspecified hearing loss, unspecified ear; E78.5 Hyperlipidemia, unspecified; N18.3 Chronic kidney disease, stage 3 (moderate); I12.9 Hypertensive chronic kidney disease with stage 1 through stage 4 chronic kidney disease, or unspecified chronic kidney disease; E11.65 Type 2 diabetes mellitus with hyperglycemia; Z82.49 Family history of ischemic heart disease and other diseases of the circulatory system; Z85.46 Personal history of malignant neoplasm of prostate; Z88.6 Allergy status to analgesic agent; Z88.8 Allergy status to other drugs, medicaments and biological substances; Z87.442 Personal history of urinary calculi; Z87.891 Personal history of nicotine dependence; Z68.22 Body mass index [BMI] 22.0-22.9, adult
CPT/HCPCS: 36415; 70450; 76770; 80048; 80053; 81001; 82570; 82962; 84300; 84439; 84443; 85025; 85027; 87040; 87076; 87086; 87186; 93005; 93010; 96374; A9270-GY; J0696; J1815; J7030; J7050

== ENCOUNTER 2019-12-24 16:17 | Outpatient (CLI) | payer MEDICARE | END 2019-12-24 16:18 | disposition home or self-care (01) | LOC: LAB 16:17 | PROVIDERS: ATTEND Internal Medicine Nephrology | DX: E87.5 Hyperkalemia (principal) | CPT/HCPCS: 36415; 84132 ==

== ENCOUNTER 2021-06-04 16:06 | Observation (INO) | payer MEDICARE ==
--- NOTE | 2021-06-04 16:49 | Emergency Department Report ---
ED General Adult HPI - General Chief complaint: High BP Stated complaint: I am weak, and I am short of breath PUI?: No Time Seen by Provider: 06/04/21 16:48 Source: patient, EMS (Verbal report received from emergency medical services. EMS documentation not available at time of chart dictation ), RN notes reviewed, old records reviewed Mode of arrival: Stretcher Limitations: Physical Limitation - History of Present Illness Initial comments: Nephrology: Dr. Beckwith. This is an 86-year-old gentleman. Patient is not known to myself previously. Past medical history is complex, including chronic renal insufficiency, diabetes mellitus, hypertension, stage III renal insufficiency, recently admitted to this hospital in April 2020, found to have metabolic acidosis, acute on chronic renal failure, and hyperkalemia, in addition to hypotension. The patient is reportedly recently admitted to [facility] or [facility] for something similar within the past few weeks He presents to the ER today with EMS, with a complaint of painless weakness and shortness of breath. He has received his Covid vaccinations. EMS states patient has been generally weak for about 1 week. Patient thinks he has been weak for 1 day or 2 days, he is not certain. He denies physical pain. He states "it feels like my breath is just giving out of me." He denies headache, neck pain, chest pain, abdominal pain, focal extremity weakness/numbness, nausea, vomiting, diarrhea. At the moment, he is not accompanied by friends or family for additional information or collateral information EMS reported that in the field, the patient was markedly hypertensive, blood pressure systolic 230, had an unremarkable/normal Accu-Chek, and was able to ambulate with minimal assistance. -: Gradual, days(s) Consistency: constant Improves with: none Worsens with: none - Related Data Home Medications Medication Instructions Recorded Confirmed Last Taken Folic Acid 1 mg PO DAILY 11/27/17 04/27/20 07/29/19 Loratadine 10 mg PO DAILY 04/27/20 04/27/20 Unknown Rayaldee 30 mcg PO DAILY 04/27/20 04/27/20 Unknown Previous Rx's Medication Instructions Recorded Last Taken Type Doxazosin [Cardura] 2 mg PO QDAY tablet 04/29/20 Unknown Rx Famotidine [Pepcid] 20 mg PO DAILY tablet 04/29/20 Unknown Rx Folic Acid [Folvite] 1 mg PO DAILY tablet 04/29/20 Unknown Rx Metoprolol [Lopressor TAB] 50 mg PO BID #60 04/29/20 Unknown Rx hydrALAZINE [Apresoline TAB] 25 mg PO Q8HR #90 tablet 04/29/20 Unknown Rx Allergies Allergy/AdvReac Type Severity Reaction Status Date / Time ibuprofen Allergy Hives Verified 07/30/19 13:47 metronidazole [From Flagyl] Allergy Unknown Verified 07/30/19 13:47 nitroglycerin Allergy Rash Verified 07/30/19 13:47 [From Nitro-Dur] ED Review of Systems ROS: Stated complaint: HIGH BLOOD PRESSURE/WEAKNESS Other details as noted in HPI Constitutional: malaise, weakness Eyes: denies: eye discharge ENT: denies: epistaxis Respiratory: shortness of breath Cardiovascular: denies: chest pain Gastrointestinal: denies: abdominal pain Genitourinary: denies: dysuria Musculoskeletal: denies: back pain Neurological: weakness. denies: headache ED Past Medical Hx - Past Medical History Previous Medical History?: Yes Hx Hypertension: Yes Hx Heart Attack/AMI: No Hx Congestive Heart Failure: Yes Hx Diabetes: Yes Hx Pulmonary Embolism: Yes Hx Liver Disease: No Hx Renal Disease: Yes (acute renal failure secondary to obstruction 07/2013 (resolved)) Hx Sickle Cell Disease: No Hx Headaches / Migraines: Yes ("MIGRAINES") Hx Seizures: No Hx Kidney Stones: Yes Hx Asthma: Yes Hx COPD: Yes ("touch of emphysema". does not use inhaler) Additional medical history: irregular heart beat - Surgical History Hx Pacemaker: No Hx Internal Defibrillator: No Additional Surgical History: hernia x 3. prostate surgery - Social History Smoking Status: Never Smoker - Medications Home Medications: Home Medications Medication Instructions Recorded Confirmed Last Taken Type Folic Acid 1 mg PO DAILY 11/27/17 04/27/20 07/29/19 History Loratadine 10 mg PO DAILY 04/27/20 04/27/20 Unknown History Rayaldee 30 mcg PO DAILY 04/27/20 04/27/20 Unknown History Doxazosin [Cardura] 2 mg PO QDAY tablet 04/29/20 Unknown Rx Famotidine [Pepcid] 20 mg PO DAILY tablet 04/29/20 Unknown Rx Folic Acid [Folvite] 1 mg PO DAILY tablet 04/29/20 Unknown Rx Metoprolol [Lopressor TAB] 50 mg PO BID #60 04/29/20 Unknown Rx hydrALAZINE [Apresoline TAB] 25 mg PO Q8HR #90 tablet 04/29/20 Unknown Rx ED Physical Exam - General Limitations: Physical Limitation, Other (Patient very hard of hearing) General appearance: alert, anxious - Head Head exam: Present: atraumatic, normocephalic - Eye Eye exam: Present: normal appearance, EOMI. Absent: nystagmus - ENT ENT exam: Present: normal exam, normal orophraynx, mucous membranes moist, normal external ear exam (Poor dentition) - Neck Neck exam: Present: normal inspection, full ROM. Absent: tenderness, meningismus - Respiratory Respiratory exam: Present: respiratory distress, decreased breath sounds. Absent: rhonchi, stridor - Cardiovascular Cardiovascular Exam: Present: regular rate, normal rhythm, normal heart sounds, JVD (4 to 5 cm of JVD bilaterally). Absent: bradycardia, tachycardia, irregular rhythm, systolic murmur, diastolic murmur, rubs, gallop - GI/Abdominal GI/Abdominal exam: Present: soft. Absent: distended, tenderness, guarding, rebound, rigid, pulsatile mass - Rectal Rectal exam: Present: deferred - Extremities Exam Extremities exam: Present: normal inspection, full ROM, other (2+ pulses noted in the bilateral upper and lower extremities. There is no palpable cord. negative Homans sign. Muscular compartments are soft. The pelvis is stable.). Absent: pedal edema, calf tenderness - Back Exam Back exam: Present: normal inspection, full ROM. Absent: tenderness, CVA tenderness (R), CVA tenderness (L), paraspinal tenderness, vertebral tenderness - Neurological Exam Neurological exam: Present: alert, other (No facial droop. Tongue midline. Ext raocular movements intact bilaterally. Facial sensation intact to light touch in V1, V2, V3 distribution bilaterally. 5 and a 5 strength in 4 extremities. Sensation intact to light touch in 4 extremities.) - Psychiatric Psychiatric exam: Present: anxious - Skin Skin exam: Present: warm, dry, intact, normal color. Absent: rash ED Course Vital Signs 06/04/21 06/04/21 06/04/21 17:11 17:15 17:20 Temperature Pulse Rate 61 74 Respiratory 43 H 37 H 18 Rate Blood Pressure 216/91 216/91 O2 Sat by Pulse 98 97 98 Oximetry 06/04/21 06/04/21 06/04/21 17:30 17:31 19:59 Temperature 98.4 F Pulse Rate 58 L 92 H Respiratory 40 H Rate Blood Pressure 216/90 217/106 O2 Sat by Pulse 98 Oximetry - Reevaluation(s) Reevaluation #1: 06/04/21 17:02 Differential diagnosis, including but not limited to: Acute on chronic renal insufficiency, electrolyte derangement, thyroid derangement, pneumonia, urinary tract infection, hypertensive cardiomyopathy, congestive heart failure Assessment and plan: 86-year-old gentleman, with multiple chronic medical issues, brought to the hospital by EMS with a complaint of generalized weakness and shortness of breath, EMS reports marked hypertension in the field, and they also report the patient was recently admitted to another hospital for similar symptoms and hyperkalemia. Place patient on engine monitor, obtain complete set of vital signs, rectal temperature, CT scan of the brain, CT scan of the chest (if x-ray the chest nondiagnostic), contact family to obtain collateral information, reassess after initial data points. This patient will likely be admitted to the medical service once initial diagnostics have resulted. The patient is very hard of hearing, but he is awake to name, location, follows commands. However, given extremely advanced age, limited pulmonary examination, marked hypertension, check CT scan of the brain to exclude hemorrhage. 06/04/21 18:58 Vital signs fairly hypertensive. Afebrile. Urinalysis pending. Patient found to have GFR of 50, TSH which is elevated, hypokalemia, hypomagnesemia. He is so mewhat tachypneic. He appears to have emphysematous changes on CT scan of the chest. X-ray of the chest suggested infiltrates, although this is more likely to be COPD. We are awaiting callback from nephrology on-call. Given diminished breath sounds, tachypnea, recent hospitalization, D-dimer will be ordered. Admit patient to the medical service. Given physical exam findings, CT scan findings, decompensated congestive heart failure is less likely. 500 cc of lactated Ringer's. Defer to inpatient team to further evaluate elevated TSH. 06/04/21 19:01 CT scan of the brain negative for acute findings. Have discussed history, physical, laboratory studies, imaging studies and overall clinical impression with nephrology on-call, Dr. Ulysses Byrne He is in agreement with the plan of care to admit this patient. The nephrology group will follow in consultation. I do suspect that this is likely a hypertensive urgency, with probable superimposed COPD exacerbation. Given advanced age, tachypnea, electrolyte derangement, multiple chronic medical issues, evidence of decompensation, admission to the medical service is warranted. 06/04/21 20:57 Given recent hospitalizations, D-dimer was ordered. It was elevated, GFR 50. Patient is okay to have IV contrast. CT scan of the chest is ordered, which shows no pulmonary embolism. Respiratory work of breathing is improved, but still hypertensive. Additional hydralazine ordered. Urinalysis suggests pyuria versus urinary tract infection. Ceftriaxone ordered. Hospital physician, Dr. Laboy to admit to [facility] ED Medical Decision Making - Lab Data Result diagrams: 06/04/21 17:26 06/04/21 17:26 Vital Signs 06/04/21 06/04/21 06/04/21 17:11 17:15 17:31 Pulse Rate 61 74 58 L Respiratory 43 H 37 H 40 H Rate Blood Pressure 216/91 216/91 216/90 O2 Sat by Pulse 98 97 98 Oximetry Lab Results 06/04/21 06/04/21 06/04/21 Range/Units 17:26 17:26 17:26 WBC 5.8 (4.5-11.0) K/mm3 RBC 3.63 L (3.65-5.03) M/mm3 Hgb 10.4 L (11.8-15.2) gm/dl Hct 31.5 L (35.5-45.6) % MCV 87 (84-94) fl MCH 29 (28-32) pg MCHC 33 (32-34) % RDW 16.3 H (13.2-15.2) % Plt Count 143 (140-440) K/mm3 Lymph % (Auto) 18.8 (13.4-35.0) % Fallon % (Auto) 7.1 (0.0-7.3) % Eos % (Auto) 1.1 (0.0-4.3) % Baso % (Auto) 0.4 (0.0-1.8) % Lymph # (Auto) 1.1 L (1.2-5.4) K/mm3 Fallon # (Auto) 0.4 (0.0-0.8) K/mm3 Eos # (Auto) 0.1 (0.0-0.4) K/mm3 Baso # (Auto) 0.0 (0.0-0.1) K/mm3 Seg Neutrophils % 72.6 H (40.0-70.0) % Seg Neutrophils # 4.2 (1.8-7.7) K/mm3 PT 13.5 (12.2-14.9) Sec. INR 0.97 (0.87-1.13) Estimated GFR 50 ml/min BUN/Creatinine Ratio 11 % Lactic Acid (0.7-2.0) mmol/L Albumin/Globulin Ratio 1.1 % 06/04/21 Range/Units 17:26 WBC (4.5-11.0) K/mm3 RBC (3.65-5.03) M/mm3 Hgb (11.8-15.2) gm/dl Hct (35.5-45.6) % MCV (84-94) fl MCH (28-32) pg MCHC (32-34) % RDW (13.2-15.2) % Plt Count (140-440) K/mm3 Lymph % (Auto) (13.4-35.0) % Fallon % (Auto) (0.0-7.3) % Eos % (Auto) (0.0-4.3) % Baso % (Auto) (0.0-1.8) % Lymph # (Auto) (1.2-5.4) K/mm3 Fallon # (Auto) (0.0-0.8) K/mm3 Eos # (Auto) (0.0-0.4) K/mm3 Baso # (Auto) (0.0-0.1) K/mm3 Seg Neutrophils % (40.0-70.0) % Seg Neutrophils # (1.8-7.7) K/mm3 PT (12.2-14.9) Sec. INR (0.87-1.13) Estimated GFR ml/min BUN/Creatinine Ratio % Lactic Acid 0.60 L (0.7-2.0) mmol/L Albumin/Globulin Ratio % Vital Signs 06/04/21 06/04/21 06/04/21 17:11 17:15 17:20 Temperature Pulse Rate 61 74 Respiratory 43 H 37 H 18 Rate Blood Pressure 216/91 216/91 O2 Sat by Pulse 98 97 98 Oximetry 06/04/21 06/04/21 17:30 17:31 Temperature 98.4 F Pulse Rate 58 L Respiratory 40 H Rate Blood Pressure 216/90 O2 Sat by Pulse 98 Oximetry Lab Results 06/04/21 06/04/21 06/04/21 Range/Units 17:26 17:26 17:26 WBC 5.8 (4.5-11.0) K/mm3 RBC 3.63 L (3.65-5.03) M/mm3 Hgb 10.4 L (11.8-15.2) gm/dl Hct 31.5 L (35.5-45.6) % MCV 87 (84-94) fl MCH 29 (28-32) pg MCHC 33 (32-34) % RDW 16.3 H (13.2-15.2) % Plt Count 143 (140-440) K/mm3 Lymph % (Auto) 18.8 (13.4-35.0) % Fallon % (Auto) 7.1 (0.0-7.3) % Eos % (Auto) 1.1 (0.0-4.3) % Baso % (Auto) 0.4 (0.0-1.8) % Lymph # (Auto) 1.1 L (1.2-5.4) K/mm3 Fallon # (Auto) 0.4 (0.0-0.8) K/mm3 Eos # (Auto) 0.1 (0.0-0.4) K/mm3 Baso # (Auto) 0.0 (0.0-0.1) K/mm3 Seg Neutrophils % 72.6 H (40.0-70.0) % Seg Neutrophils # 4.2 (1.8-7.7) K/mm3 PT 13.5 (12.2-14.9) Sec. INR 0.97 (0.87-1.13) Sodium 144 (137-145) mmol/L Potassium 3.0 L (3.6-5.0) mmol/L Chloride 107.8 H (98-107) mmol/L Carbon Dioxide 24 (22-30) mmol/L Anion Gap 15 mmol/L BUN 18 (9-20) mg/dL Creatinine 1.6 H (0.8-1.3) mg/dL Estimated GFR 50 ml/min BUN/Creatinine Ratio 11 % Glucose 104 H (75-100) mg/dL Lactic Acid (0.7-2.0) mmol/L Calcium 7.9 L (8.4-10.2) mg/dL Magnesium 1.40 L (1.7-2.3) mg/dL Total Bilirubin 0.70 (0.1-1.2) mg/dL AST 17 (5-40) units/L ALT 14 (7-56) units/L Alkaline Phosphatase 111 (35-129) units/L Total Creatine Kinase 55 (55-170) units/L Troponin T < 0.010 (0.00-0.029) ng/mL Total Protein 5.9 L (6.3-8.2) g/dL Albumin 3.1 L (3.9-5) g/dL Albumin/Globulin Ratio 1.1 % TSH (0.270-4.200) mlU/mL 06/04/21 06/04/21 Range/Units 17:26 17:26 WBC (4.5-11.0) K/mm3 RBC (3.65-5.03) M/mm3 Hgb (11.8-15.2) gm/dl Hct (35.5-45.6) % MCV (84-94) fl MCH (28-32) pg MCHC (32-34) % RDW (13.2-15.2) % Plt Count (140-440) K/mm3 Lymph % (Auto) (13.4-35.0) % Fallon % (Auto) (0.0-7.3) % Eos % (Auto) (0.0-4.3) % Baso % (Auto) (0.0-1.8) % Lymph # (Auto) (1.2-5.4) K/mm3 Fallon # (Auto) (0.0-0.8) K/mm3 Eos # (Auto) (0.0-0.4) K/mm3 Baso # (Auto) (0.0-0.1) K/mm3 Seg Neutrophils % (40.0-70.0) % Seg Neutrophils # (1.8-7.7) K/mm3 PT (12.2-14.9) Sec. INR (0.87-1.13) Sodium (137-145) mmol/L Potassium (3.6-5.0) mmol/L Chloride (98-107) mmol/L Carbon Dioxide (22-30) mmol/L Anion Gap mmol/L BUN (9-20) mg/dL Creatinine (0.8-1.3) mg/dL Estimated GFR ml/min BUN/Creatinine Ratio % Glucose (75-100) mg/dL Lactic Acid 0.60 L (0.7-2.0) mmol/L Calcium (8.4-10.2) mg/dL Magnesium (1.7-2.3) mg/dL Total Bilirubin (0.1-1.2) mg/dL AST (5-40) units/L ALT (7-56) units/L Alkaline Phosphatase (35-129) units/L Total Creatine Kinase (55-170) units/L Troponin T (0.00-0.029) ng/mL Total Protein (6.3-8.2) g/dL Albumin (3.9-5) g/dL Albumin/Globulin Ratio % TSH 4.610 H (0.270-4.200) mlU/mL - EKG Data -: EKG Interpreted by Sc EKG shows normal: sinus rhythm Rate: normal - EKG Data Interpretation: other 06/04/21 17:18 The EKG today is interpreted at 17: 0 7 PM. Sinus rhythm, 78 bpm. Left axis deviation, left anterior fascicular block, left ventricular hypertrophy, normal P wave axis. This is an abnormal EKG, the QTC is 495 ms. When compared to prior EKG from 04/27/2020, left axis deviation is new. - Radiology Data Radiology results: pending, report reviewed, image reviewed [facility] [address] [place] [address] XRay Report Signed Patient: ALEXIS SHAH MR#: [id number] : 1935 Acct:[id number] Age/Sex: 86 / M ADM Date: 06/04/21 Loc: ED Attending Dr: Ordering Physician: MARCIANO BARRIENTOS MD Date of Service: 06/04/21 Procedure(s): XR chest 1V ap Accession Number(s): [id number] cc: MARCIANO BARRIENTOS MD Fluoro Time In Minutes: CHEST 1 VIEW 06/04/2021 4:51 PM INDICATION / CLINICAL INFORMATION: Weakness dyspnea. COMPARISON: 04/27/2020 FINDINGS: SUPPORT DEVICES: None. HEART / MEDIASTINUM: No significant abnormality. LUNGS / PLEURA: Pulmonary parenchymal opacities are seen in bilateral lungs No pneumothorax. Signer Name: Dev Quinones MD Signed: 06/04/2021 5:53 PM Workstation Name: [id number] El scribed By: CW Dictated By: ADELA QUINONES MD Electronically Authenticated By: ADELA QUINONES MD Signed Date/Time: 06/04/211752 DD/ 51 Critical care attestation.: If time is entered above; I have spent that time in minutes in the direct care of this critically ill patient, excluding procedure time. ED Disposition Clinical Impression: Acute dyspnea, COPD (chronic obstructive pulmonary disease), Hypokalemia, Hypomagnesemia, Hypertensive urgency, Malnutrition, Weakness, UTI (urinary tract infection) Disposition: OP ADMIT IP TO THIS HOSP Is pt being admited?: Yes Does the pt Need Aspirin: No Condition: Good Instructions: Chronic Obstructive Pulmonary Disease (ED)
[2021-06-04 17:54] LABS: Basophils % (Auto) 0.4 % (0.0-1.8); Eosinophils # (Auto) 0.1 K/mm3 (0.0-0.4); Eosinophils % (Auto) 1.1 % (0.0-4.3); Hematocrit 31.5 % (35.5-45.6); Hemoglobin 10.4 gm/dl (11.8-15.2); Lymphocytes # (Auto) 1.1 K/mm3 (1.2-5.4); Lymphocytes % (Auto) 18.8 % (13.4-35.0); Mean Corpuscular HGB Conc 33 % (32-34); Mean Corpuscular Volume 87 fl (84-94); Monocytes # (Auto) 0.4 K/mm3 (0.0-0.8); Monocytes % (Auto) 7.1 % (0.0-7.3); Platelet Count 143 K/mm3 (140-440); Red Blood Count 3.63 M/mm3 (3.65-5.03); Red Cell Distribution Width 16.3 % (13.2-15.2)
--- NOTE | 2021-06-04 17:57 | XRay Report ---
CHEST 1 VIEW 06/04/2021 4:51 PM INDICATION / CLINICAL INFORMATION: Weakness dyspnea. COMPARISON: 04/27/2020 FINDINGS: SUPPORT DEVICES: None. HEART / MEDIASTINUM: No significant abnormality. LUNGS / PLEURA: Pulmonary parenchymal opacities are seen in bilateral lungs No pneumothorax. Signer Name: Dev Quinones MD Signed: 06/04/2021 5:53 PM Workstation Name: [id number]
[2021-06-04 18:03] LABS: INR 0.97 (0.87-1.13)
[2021-06-04 18:08] LABS: Alanine Aminotransferase 14 units/L (7-56); Albumin 3.1 g/dL (3.9-5); BUN/Creatinine Ratio 11; Blood Urea Nitrogen 18 mg/dL (9-20); Calcium 7.9 mg/dL (8.4-10.2); Hemolysis Index 0
[2021-06-04] MEDS ORDERED: IPRATROPIUM 0.02% NEBU 2.5 ML IH ONE (18:35)
[2021-06-04] MEDS ORDERED: ALBUTEROL 2.5 MG/3 ML NEBU IH ONE (18:35)
[2021-06-04] MEDS ORDERED: methylPREDNISolone Sod Succinate 125 MG/2 ML INJ IV ONE (18:35)
--- NOTE | 2021-06-04 18:49 | Cat Scan Report ---
CT CHEST WITHOUT CONTRAST INDICATION / CLINICAL INFORMATION: acute dyspnea, htn. TECHNIQUE: Axial CT images were obtained through the chest without contrast. All CT scans at [facility] are performed using CT dose reduction for ALARA by means of automated exposure control. COMPARISON: July 30, 2019 FINDINGS: HEART: No significant abnormality. CORONARY ARTERY CALCIFICATION: Mild. THORACIC AORTA: Mild atherosclerotic calcification without acute abnormality. MEDIASTINUM / HORACE: No significant abnormality. PLEURA: Small right pleural effusion and trace left pleural effusion. No pneumothorax. LUNGS: There is upper lobe predominant centrilobular paraseptal emphysema with bullous disease in the bilateral lung apices. ADDITIONAL FINDINGS: None. UPPER ABDOMEN: Several scattered hepatic cysts. 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 SKELETAL SYSTEM: No significant abnormality. IMPRESSION: 1. Prominent emphysema throughout the lungs with bullous disease noted in the bilateral lung apices. 2. Small right and trace left pleural effusion. 3. Other incidental findings as above. Signer Name: Alejandro Murrieta DO Signed: 06/04/2021 6:44 PM Workstation Name: [id number]
[2021-06-04] MEDS ORDERED: MAGNESIUM SULFATE 2 GM/50 ML BAG IV ONE (18:56)
[2021-06-04] MEDS ORDERED: LACTATED RINGERS 500 ML IV ONE (18:56)
[2021-06-04] MEDS ORDERED: hydrALAZINE 20 MG/1 ML INJ IV STA (18:56)
[2021-06-04] MEDS ORDERED: POTASSIUM CHLORIDE ER 20 MEQ TAB PO ONE (18:56)
[2021-06-04] MEDS ORDERED: MAGNESIUM OXIDE 400 MG TAB PO STA (18:56)
--- NOTE | 2021-06-04 18:57 | Cat Scan Report ---
CT HEAD WITHOUT CONTRAST INDICATION / CLINICAL INFORMATION: weakness htn. TECHNIQUE: All CT scans at this location are performed using CT dose reduction for ALARA by means of automated e xposure control. COMPARISON: Head CT 07/30/2019 FINDINGS: HEMORRHAGE: No evidence of intracranial hemorrhage or extra-axial fluid collection. EXTRA-AXIAL SPACES: Cortical sulci and sylvian fissures are within normal limits for the patient's ag e of the 4 years. Basilar cisterns have an unremarkable appearance. VENTRICULAR SYSTEM: The third and lateral ventricles are normal in size patient's age. CEREBRAL PARENCHYMA: Periventricular and deep white matter lucency is observed. This is probably seco ndary to microvascular ischemic change. There is no indication of recent infarction. No areas of ence phalomalacia are identified. MIDLINE SHIFT OR HERNIATION: There is no mass effect. CEREBELLUM / BRAINSTEM: Brainstem has an unremarkable appearance. Age related cerebellar atrophy is n oted. MIDLINE STRUCTURES:Pituitary gland has an unremarkable appearance. No abnormalities are seen in the p ineal region. INTRACRANIAL VESSELS:Calcified atherosclerotic plaque is present along the course of the cavernous se gments of both internal carotid arteries. Similar findings are seen at the distal vertebral arteries. ORBITS: visualized portions of the orbits have an unremarkable appearance. SOFT TISSUES of HEAD: No significant abnormality. CALVARIUM: Evaluation of bone windows reveals no abnormalities. PARANASAL SINUSES / MASTOID AIR CELLS: Opacification of the posterior ethmoid air cell as noted on th e right. Paranasal sinuses are otherwise free from inflammatory mucosal disease. Mastoid air cells ar e normally pneumatized. IMPRESSION: 1. Age-related microvascular ischemic changes are present in the white matter of both cerebral hemisp heres. 2. No acute intracranial abnormalities are identified. There is no significant interval change. Signer Name: Tulio Soria MD Signed: 06/04/2021 6:52 PM Workstation Name: [id number]
[2021-06-04] MEDS ORDERED: CLOPIDOGREL 75 MG TAB PO ONE (19:01)
[2021-06-04 20:06] LABS: Bacteria,Urine 1+ /HPF (Negative); Bilirubin,Urine NEG (Negative); Blood,Urine SM (Negative); Color,Urine Yellow (Yellow); Sperm,Urine 1+ /HPF (NP); Urobilinogen,Urine < 2.0 mg/dL (<2.0)
[2021-06-04 20:08] LABS: WBC,Urine > 182.0 /HPF (0.0-6.0)
--- NOTE | 2021-06-04 20:45 | Cat Scan Report ---
CTA CHEST WITH CONTRAST INDICATION / CLINICAL INFORMATION: acute dyspnea, + d dimer. TECHNIQUE: Axial CT images were obtained through the chest after injection of 100 mL's of Omnipaque 3 00 IV contrast. 3 plane MIP and/or 3D reconstructions were produced. All CT scans at this location ar e performed using CT dose reduction for ALARA by means of automated exposure control. COMPARISON: CT of the chest from earlier in the day at 1658. FINDINGS: PULMONARY ARTERIES: No pulmonary emboli. THORACIC AORTA: No significant abnormality. HEART: No significant abnormality. CORONARY ARTERY CALCIFICATION: Mild. MEDIASTINUM / OHRACE: No significant abnormality. PLEURA: Small right pleural effusion and trace left pleural effusion. No pneumothorax. LUNGS: There are upper lobe predominant centrilobular paraseptal emphysema with bullous disease in th e bilateral lung apices. ADDITIONAL FINDINGS: None. UPPER ABDOMEN: Several scattered hepatic cysts. 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 SKELETAL STRUCTURES: No significant osseous abnormality. IMPRESSION: 1. No CT evidence for pulmonary embolism. 2. Otherwise unchanged compared to CT of the chest from same day at 1658 Signer Name: Alejandro Murrieta DO Signed: 06/04/2021 8:41 PM Workstation Name: [id number]
[2021-06-04] MEDS ORDERED: hydrALAZINE 20 MG/1 ML INJ IV ONE (20:56)
[2021-06-04] MEDS ORDERED: cefTRIAXone/NS 1 GM/50 ML 1 GM/50 ML BAG IV ONE (20:56)
[2021-06-04] MEDS ORDERED: SODIUM CHLORIDE 0.9% 500 ML 500 ML IV ONE (20:57)
[2021-06-04] MEDS ORDERED: ONDANSETRON 4 MG/2 ML INJ IV PRN (21:33)
[2021-06-04] MEDS ORDERED: oxyCODONE /ACETAMINOPHEN 5-325MG TAB PO PRN (21:33)
[2021-06-04] MEDS ORDERED: ALBUTEROL 2.5 MG/3 ML NEBU IH PRN (21:33)
[2021-06-04] MEDS ORDERED: HYDROmorphone 1 MG/1 ML INJ IV PRN (21:33)
[2021-06-04] MEDS ORDERED: hydrALAZINE 20 MG/1 ML INJ IV PRN (21:38)
--- NOTE | 2021-06-04 21:45 | History and Physical Report ---
History of Present Illness Date of examination: 06/04/21 Date of admission: 06/04/2021 Chief complaint: Shortness of breath High blood pressure weakness History of present illness: 86 years old male with past medical history of diabetes, hypertension, acute on chronic renal insufficiency stage III was brought to the emergency room because of painless weakness and shortness of breath. He has received his Covid vaccinations. EMS states patient has been generally weak for about 1 week. Patient thinks he has been weak for 1 day or 2 days, he is not certain. He denies physical pain. He states "it feels like my breath is just giving out of me." In the emergency room patient is found to have acute COPD exacerbation and UTI also patient BUN is 18 creatinine 1.6, potassium is 3.0 and magnesium is 1.40 Past History Past Medical History: COPD, diabetes, hypertension, renal failure Medications and Allergies Allergies Allergy/AdvReac Type Severity Reaction Status Date / Time ibuprofen Allergy Hives Verified 07/30/19 13:47 metronidazole [From Flagyl] Allergy Unknown Verified 07/30/19 13:47 nitroglycerin Allergy Rash Verified 07/30/19 13:47 [From Nitro-Dur] Home Medications Medication Instructions Recorded Confirmed Last Taken Type Folic Acid 1 mg PO DAILY 11/27/17 04/27/20 07/29/19 History Loratadine 10 mg PO DAILY 04/27/20 04/27/20 Unknown History Rayaldee 30 mcg PO DAILY 04/27/20 04/27/20 Unknown History Doxazosin [Cardura] 2 mg PO QDAY tablet 04/29/20 Unknown Rx Famotidine [Pepcid] 20 mg PO DAILY tablet 04/29/20 Unknown Rx Folic Acid [Folvite] 1 mg PO DAILY tablet 04/29/20 Unknown Rx Metoprolol [Lopressor TAB] 50 mg PO BID #60 04/29/20 Unknown Rx hydrALAZINE [Apresoline TAB] 25 mg PO Q8HR #90 tablet 04/29/20 Unknown Rx Active Meds: Active Medications Acetaminophen (Acetaminophen 325 Mg Tab) 650 mg PO Q4H PRN PRN Reason: Pain MILD(1-3)/Fever >100.5/TAVARES Albuterol (Albuterol 2.5 Mg/3 Ml Nebu) 2.5 mg IH Q4HRT PRN PRN Reason: Shortness Of Breath Albuterol/Ipratropium (Ipratropium/Albuterol Sulfate 3 Ml Ampul.Neb) 1 ampul IH Q6HRT [facility] Doxazosin Mesylate (Doxazosin 1 Mg Tab) 2 mg PO QDAY [facility] Famotidine (Famotidine 20 Mg Tab) 20 mg PO BID [facility] Heparin Sodium (Porcine) (Heparin 5,000 Unit/1 Ml Vial) 5,000 unit SUB-Q Q12HR [facility] Hydralazine HCl (Hydralazine 25 Mg Tab) 25 mg PO Q8HR [facility] Hydralazine HCl (Hydralazine 20 Mg/1 Ml Inj) 10 mg IV Q6H PRN PRN Reason: Blood Pressure Hydromorphone HCl (Hydromorphone 1 Mg/1 Ml Inj) 0.5 mg IV Q3H PRN PRN Reason: Pain , Severe (7-10) Potassium Chloride (Kcl 10meq/100ml) 10 meq in 100 mls @ 100 mls/hr IV Q1H [facility] Stop: 06/04/21 23:59 Ceftriaxone Sodium (Rocephin/Ns 2 Gm/100 Ml) 2 gm in 100 mls @ 200 mls/hr IV Q24H [facility]; Protocol Metoprolol Tartrate (Metoprolol Tartrate 50 Mg Tab) 50 mg PO BID [facility] Miscellaneous Medication (Folic Acid) 1 mg PO DAILY [facility] Miscellaneous Medication (Rayaldee) 30 mcg PO DAILY [facility] Ondansetron HCl (Ondansetron 4 Mg/2 Ml Inj) 4 mg IV Q8H PRN PRN Reason: Nausea And Vomiting Prednisone (Prednisone 20 Mg Tab) 20 mg PO QDAY [facility] Sodium Chloride (Sodium Chloride 0.9% 10 Ml Flush Syringe) 10 ml IV BID [facility] Sodium Chloride (Sodium Chloride 0.9% 10 Ml Flush Syringe) 10 ml IV PRN PRN PRN Reason: LINE FLUSH Review of Systems Constitutional: weakness Cardiovascular: shortness of breath, dyspnea on exertion Respiratory: shortness of breath, dyspnea on exertion Exam - Constitutional Vitals: Temp Pulse Resp BP Pulse Ox 98.4 F 92 H 40 H 217/106 98 06/04/21 17:30 06/04/21 19:59 06/04/21 17:31 06/04/21 19:59 06/04/21 17:31 General appearance: Present: no acute distress, well-nourished - EENT Eyes: Present: PERRL ENT: hearing intact, clear oral mucosa - Neck Neck: Present: supple, normal ROM - Respiratory Respiratory effort: normal Respiratory: bilateral: diminished - Cardiovascular Heart Sounds: Present: S1 & S2. Absent: rub, click - Extremities Extremities: pulses symmetrical, No edema Peripheral Pulses: within normal limits - Abdominal General gastrointestinal: Present: soft, non-tender, non-distended, normal bowel sounds Male genitourinary: Present: normal - Integumentary Integumentary: Present: clear, warm, dry - Musculoskeletal Musculoskeletal: gait normal, strength equal bilaterally - Psychiatric Psychiatric: appropriate mood/affect, intact judgment & insight - Neurologic Neurologic: CNII-XII intact, moves all extremities HEART Score - HEART Score Troponin: Troponin T < 0.010 ng/mL (0.00-0.029) 06/04/21 17: Results - Labs CBC & Chem 7: 06/04/21 17:26 06/04/21 17:26 Labs: Laboratory Last Values WBC 5.8 K/mm3 (4.5-11.0) 06/04/21 17: RBC 3.63 M/mm3 (3.65-5.03) L 06/04/21 17: Hgb 10.4 gm/dl (11.8-15.2) L 06/04/21 17: Hct 31.5 % (35.5-45.6) L 06/04/21 17: MCV 87 fl (84-94) 06/04/21 17: MCH 29 pg (28-32) 06/04/21 17: MCHC 33 % (32-34) 06/04/21 17: RDW 16.3 % (13.2-15.2) H 06/04/21 17: Plt Count 143 K/mm3 (140-440) 06/04/21 17: Lymph % (Auto) 18.8 % (13.4-35.0) 06/04/21 17: [place] % (Auto) 7.1 % (0.0-7.3) 06/04/21 17: Eos % (Auto) 1.1 % (0.0-4.3) 06/04/21 17: Baso % (Auto) 0.4 % (0.0-1.8) 06/04/21 17:26 Lymph # (Auto) 1.1 K/mm3 (1.2-5.4) L 06/04/21 17:26 [place] # (Auto) 0.4 K/mm3 (0.0-0.8) 06/04/21 17:26 Eos # (Auto) 0.1 K/mm3 (0.0-0.4) 06/04/21 17:26 Baso # (Auto) 0.0 K/mm3 (0.0-0.1) 06/04/21 17:26 Seg Neutrophils % 72.6 % (40.0-70.0) H 06/04/21 17: Seg Neutrophils # 4.2 K/mm3 (1.8-7.7) 06/04/21 17: PT 13.5 Sec. (12.2-14.9) 06/04/21 17: INR 0.97 (0.87-1.13) 06/04/21 17:26 D-Dimer 661.38 ng/mlDDU (0-234) H 06/04/21 19:01 Sodium 144 mmol/L (137-145) 06/04/21 17:26 Potassium 3.0 mmol/L (3.6-5.0) L 06/04/21 17:26 Chloride 107.8 mmol/L (98-107) H 06/04/21 17:26 Carbon Dioxide 24 mmol/L (22-30) 06/04/21 17:26 Anion Gap 15 mmol/L 06/04/21 17:26 BUN 18 mg/dL (9-20) 06/04/21 17:26 Creatinine 1.6 mg/dL (0.8-1.3) H 06/04/21 17:26 Estimated GFR 50 ml/min 06/04/21 17:26 BUN/Creatinine Ratio 11 % 06/04/21 17:26 Glucose 104 mg/dL (75-100) H 06/04/21 17:26 Lactic Acid 0.60 mmol/L (0.7-2.0) L 06/04/21 17:26 Calcium 7.9 mg/dL (8.4-10.2) L 06/04/21 17:26 Magnesium 1.40 mg/dL (1.7-2.3) L 06/04/21 17:26 Total Bilirubin 0.70 mg/dL (0.1-1.2) 06/04/21 17:26 AST 17 units/L (5-40) 06/04/21 17:26 ALT 14 units/L (7-56) 06/04/21 17:26 Alkaline Phosphatase 111 units/L (35-129) 06/04/21 17:26 Total Creatine Kinase 55 units/L (55-170) 06/04/21 17:26 Troponin T < 0.010 ng/mL (0.00-0.029) 06/04/21 17:26 Total Protein 5.9 g/dL (6.3-8.2) L 06/04/21 17:26 Albumin 3.1 g/dL (3.9-5) L 06/04/21 17:26 Albumin/Globulin Ratio 1.1 % 06/04/21 17:26 TSH 4.610 mlU/mL (0.270-4.200) H 06/04/21 17:26 Urine Color Yellow (Yellow) 06/04/21 19:14 Urine Turbidity Cloudy (Clear) 06/04/21 19:14 Urine pH 6.0 (5.0-7.0) 06/04/21 19:14 Ur Specific [place] 1.011 (1.003-1.030) 06/04/21 19:14 Urine Protein 100 mg/dl mg/dL (Negative) 06/04/21 19:14 Urine Glucose (UA) Neg mg/dL (Negative) 06/04/21 19:14 Urine Ketones Tr mg/dL (Negative) 06/04/21 19:14 Urine Blood Sm (Negative) 06/04/21 19:14 Urine Nitrite Neg (Negative) 06/04/21 19:14 Urine Bilirubin Neg (Negative) 06/04/21 19:14 Urine Urobilinogen < 2.0 mg/dL (<2.0) 06/04/21 19:14 Ur Leukocyte Esterase Lg (Negative) 06/04/21 19:14 Urine WBC (Auto) > 182.0 /HPF (0.0-6.0) H 06/04/21 19:14 Urine RBC (Auto) 7.0 /HPF (0.0-6.0) 06/04/21 19:14 Urine Bacteria (Auto) 1+ /HPF (Negative) 06/04/21 19:14 Urine Yeast (Budding) 3+ /HPF 06/04/21 19:14 Urine 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 Oxygen per nasal cannula 3 L/min. DuoNeb by nebulizer every 4 hours. Albuterol via nebulizer every 4 hours as needed. Prednisone 20 mg p.o. daily. We will continue the home medication (2) Acute kidney injury superimposed on CKD Status: Acute Plan to address problem: Avoid nephrotoxic drug. Renally dose medication. Will consult notified spa consultant. Recheck BMP in the morning (3) Hypertensive urgency Status: Acute Plan to address problem: Hydralazine 10 mg IV every 6 hours as needed, hydralazine 25 mg p.o. every 8 rossy rs doxazosin 2 mg p.o. daily, metoprolol 50 mg p.o. twice daily. We will monitor the blood pressure closely (4) Diabetes Status: Acute Plan to address problem: We will put the patient on a Humalog sliding scale Accu-Chek before meals and at bedtime with moderate dose coverage. We will monitor the glucose closely (5) Hypokalemia Status: Acute Plan to address problem: Patient already get potassium 40 mEq p.o. x1 dose and IV potassium. We will recheck the BMP in the morning (6) Hypomagnesemia Status: Acute Plan to address problem: Patient get 2 g of IV magnesium we recheck the magnesium in the morning (7) Malnutrition Status: Acute Plan to address problem: We will consult dietitian for evaluation of malnutrition and recommendation (8) UTI (urinary tract infection) Status: Acute Plan to address problem: Rocephin 2 g IV daily. we will do the blood culture urine culture. (9) Weakness Status: Acute Plan to address problem: We will consult dietitian for evaluation. Multivitamin 1 tablet p.o. daily. PT evaluation (10) DVT prophylaxis Status: Acute Plan to address problem: Heparin 5000 units subcu every 8 hours for DVT prophylaxis. Pepcid 20 mg p.o. twice daily for GI prophylaxis. Patient is a full code
[2021-06-04] MEDS ORDERED: DEXTROSE 50% IN WATER (25GM) 50 ML SYRINGE IV PRN (21:51)
[2021-06-04] MEDS: METOPROLOL TARTRATE 50 MG TAB PO SCH (22:49)
[2021-06-04] MEDS: HEPARIN 5,000 UNIT/1 ML VIAL SUB-Q SCH (22:50)
[2021-06-04] MEDS: hydrALAZINE 25 MG TAB PO SCH (22:50)
[2021-06-04] MEDS: MULTIVITAMINS ,THERAPEUTIC TAB PO SCH (22:50)
[2021-06-04] MEDS: INSULIN LISPRO 100 UNIT/ML SUB-Q SCH (22:51)
[2021-06-04] MEDS: FAMOTIDINE 20 MG TAB PO SCH (22:52)
[2021-06-05] MEDS: POTASSIUM CHLORIDE 10 MEQ 10 MEQ/100 ML BAG IV SCH ×4 (00:14→03:48)
[2021-06-05] MEDS: DOXAZOSIN 1 MG TAB PO SCH ×2 (01:38→10:47)
[2021-06-05] MEDS ORDERED: POTASSIUM CHLORIDE 10 MEQ 10 MEQ/100 ML BAG IV SCH (03:00)
[2021-06-05 05:33] LABS: Hematocrit 31.6 % (35.5-45.6); Hemoglobin 10.4 gm/dl (11.8-15.2); Mean Corpuscular HGB Conc 33 % (32-34); Mean Corpuscular Volume 88 fl (84-94); Platelet Count 153 K/mm3 (140-440); Red Cell Distribution Width 16.1 % (13.2-15.2)
[2021-06-05 05:48] LABS: Calcium 7.7 mg/dL (8.4-10.2)
[2021-06-05] MEDS: hydrALAZINE 25 MG TAB PO SCH ×5 (06:19→22:25)
[2021-06-05] MEDS ORDERED: predniSONE 20 MG TAB PO SCH (08:00)
[2021-06-05] MEDS: IPRATROPIUM/ALBUTEROL SULFATE 3 ML AMPUL.NEB IH SCH ×3 (08:44→20:07)
[2021-06-05] MEDS ORDERED: cefTRIAXone/NS 2 GM/100 ML 2 GM/100 ML BAG IV SCH (10:00)
[2021-06-05] MEDS ORDERED: [UNRECOGNIZED DRUG - OTHER] PO SCH (10:00)
--- NOTE | 2021-06-05 10:31 | Electrocardiograph Report ---
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
[2021-06-05] MEDS: METOPROLOL TARTRATE 50 MG TAB PO SCH ×2 (10:47→16:39)
[2021-06-05] MEDS: FAMOTIDINE 20 MG TAB PO SCH ×2 (10:48→22:25)
[2021-06-05] MEDS: ACETAMINOPHEN 325 MG TAB PO PRN ×2 (10:48→22:26)
[2021-06-05] MEDS: FOLIC ACID 1 MG TAB PO SCH (10:48)
[2021-06-05] MEDS: HEPARIN 5,000 UNIT/1 ML VIAL SUB-Q SCH ×2 (10:48→22:26)
[2021-06-05] MEDS: MULTIVITAMINS ,THERAPEUTIC TAB PO SCH (10:48)
[2021-06-05] MEDS: predniSONE 20 MG TAB PO SCH (10:57)
--- NOTE | 2021-06-05 11:56 | Consultation ---
History of Present Illness - Reason for Consult Consult date: 06/05/21 hypokalemia Requesting physician: COLBY PINTO - History of Present Illness This is a 86 yo M with past medical history of diabetes, hypertension, acute on chronic renal insufficiency stage IIIa, history of chronic hypokalemia with chronic K supplementation until he was admitted in April 2021 when he was hospitalized at [facility] for JAMEY and hyperkalemia. JAMEY was deemed to be secondary to volume depletion/dehydration. Renal function improved with IVF and K improved with medical management. Since then pt's K supplementation was held. He is now brought to the emergency room because of generalized weakness and shortness of breath. CT head in ER showed no acute findings. CTA showed no evidence of PE, but showed chronic emphysematous changes. Labs showed UA consistent with UTI, along with elevated BUN/Cr at 18/1.6mg/dl, potassium is 3.0 and magnesium is 1.40. Renal consult is requested for management of CKD/hypokalemia. Past History Past Medical History: COPD, diabetes, hypertension, renal failure Medications and Allergies Allergies Allergy/AdvReac Type Severity Reaction Status Date / Time ibuprofen Allergy Hives Verified 07/30/19 13:47 metronidazole [From Flagyl] Allergy Unknown Verified 07/30/19 13:47 nitroglycerin Allergy Rash Verified 07/30/19 13:47 [From Nitro-Dur] Home Medications Medication Instructions Recorded Confirmed Last Taken Type Albuterol Sulfate [Proair 90 mcg IH QDAY 06/05/21 06/05/21 Unknown History Respiclick] Ergocalciferol (Vitamin D2) 50,000 unit PO QDAY 06/05/21 06/05/21 Unknown History [Vitamin D2] Fluticasone/Vilanterol [Breo 1 puff PO DAILY 06/05/21 06/05/21 Unknown History Ellipta 100-25 Mcg INH] Folic Acid 1 mg PO QDAY 06/05/21 06/05/21 Unknown History Losartan Potassium 100 mg PO QDAY 06/05/21 06/05/21 Unknown History Metoprolol Tartrate [Lopressor] 50 mg PO BID 06/05/21 06/05/21 Unknown History Simvastatin 20 mg PO QDAY 06/05/21 06/05/21 Unknown History amLODIPine [Norvasc] 5 mg PO DAILY 06/05/21 06/05/21 Unknown History calcitrioL [Rocaltrol] 1 mcg PO QDAY 06/05/21 06/05/21 Unknown History cloNIDine [Catapres] 0.1 mg PO BID 06/05/21 06/05/21 Unknown History glipiZIDE XL [Glucotrol Xl] 5 mg PO QAM 06/05/21 06/05/21 Unknown History hydrALAZINE [Apresoline] 25 mg PO Q8HR 06/05/21 06/05/21 Unknown History Active Meds: Active Medications Acetaminophen (Acetaminophen 325 Mg Tab) 650 mg PO Q4H PRN PRN Reason: Pain MILD(1-3)/Fever >100.5/TAVARES Last Admin: 06/05/21 10:48 Dose: 650 mg Documented by: Albuterol (Albuterol 2.5 Mg/3 Ml Nebu) 2.5 mg IH Q4HRT PRN PRN Reason: Shortness Of Breath Albuterol/Ipratropium (Ipratropium/Albuterol Sulfate 3 Ml Ampul.Neb) 1 ampul IH Q6HRT [facility] Last Admin: 06/05/21 08:44 Dose: Not Given Documented by: Dextrose (Dextrose 50% In Water (25gm) 50 Ml Syringe) 0 ml IV Q30MIN PRN; Protocol PRN Reason: Hypoglycemia Doxazosin Mesylate (Doxazosin 1 Mg Tab) 2 mg PO QDAY [facility] Last Admin: 06/05/21 10:47 Dose: 2 mg Documented by: Famotidine (Famotidine 20 Mg Tab) 20 mg PO BID [facility] Last Admin: 06/05/21 10:48 Dose: 20 mg Documented by: Folic Acid (Folic Acid 1 Mg Tab) 1 mg PO DAILY [facility] Last Admin: 06/05/21 10:48 Dose: 1 mg Documented by: Heparin Sodium (Porcine) (Heparin 5,000 Unit/1 Ml Vial) 5,000 unit SUB-Q Q12HR [facility] Last Admin: 06/05/21 10:48 Dose: 5,000 unit Documented by: Hydralazine HCl (Hydralazine 25 Mg Tab) 25 mg PO Q8HR [facility] Last Admin: 06/05/21 06:19 Dose: 25 mg Documented by: Hydralazine HCl (Hydralazine 20 Mg/1 Ml Inj) 10 mg IV Q6H PRN PRN Reason: Blood Pressure Hydromorphone HCl (Hydromorphone 1 Mg/1 Ml Inj) 0.5 mg IV Q3H PRN PRN Reason: Pain , Severe (7-10) Ceftriaxone Sodium (Rocephin/Ns 2 Gm/100 Ml) 2 gm in 100 mls @ 200 mls/hr IV Q24HR [facility]; Protocol Insulin Human Lispro (Insulin Lispro 100 Unit/Ml) 0 unit SUB-Q ACHS [facility]; Protocol Last Admin: 06/04/21 22:51 Dose: Not Given Documented by: Metoprolol Tartrate (Metoprolol Tartrate 50 Mg Tab) 50 mg PO BID@0800,1700 [facility] Last Admin: 06/05/21 10:47 Dose: 50 mg Documented by: Miscellaneous Medication (Rayaldee) 30 mcg PO DAILY [facility] Multivitamins (Multivitamins ,Therapeutic Tab) 1 each PO DAILY [facility] Last Admin: 06/05/21 10:48 Dose: 1 each Documented by: Ondansetron HCl (Ondansetron 4 Mg/2 Ml Inj) 4 mg IV Q8H PRN PRN Reason: Nausea And Vomiting Prednisone (Prednisone 20 Mg Tab) 40 mg PO QDAY@0800 [facility] Last Admin: 06/05/21 10:57 Dose: 40 mg Documented by: Sodium Chloride (Sodium Chloride 0.9% 10 Ml Flush Syringe) 10 ml IV BID [facility] Last Admin: 06/05/21 10:49 Dose: 10 ml Documented by: Sodium Chloride (Sodium Chloride 0.9% 10 Ml Flush Syringe) 10 ml IV PRN PRN PRN Reason: LINE FLUSH Review of Systems Constitutional: fatigue, weakness, malaise Exam - Vital Signs Vital signs: Vital Signs Pulse Resp Pulse Ox 98 H 20 97 06/04/21 15:40 06/04/21 15:40 06/04/21 15:40 - General Appearance General appearance: well-developed, appears stated age EENT: ATNC, PERRL, mucous membranes moist Neck: Present: neck supple Respiratory: Decreased Breath Sounds Heart: regular, S1S2 Gastrointestinal: Present: normoactive bowel sounds Integumentary: no rash, other (no edema ) Neurologic: no focal deficit, alert and oriented x3, strength 5/5, CN 3-12 intact Psychiatric: mood/affect appropriate, cooperative Results - Lab Results 06/05/21 04:34 06/05/21 04:34 Most recent lab results Calcium 7.7 mg/dL (8.4-10.2) L 06/05/21 04:34 Magnesium 1.40 mg/dL (1.7-2.3) L 06/04/21 17:26 Assessment and Plan - Patient Problems (1) Hypokalemia Current Visit: No Status: Acute Plan to address problem: Patient has h/o chronic hypokalemia due to GI loss in the setting of chronic diarrhea. cont K supplementation with KDur, and Mg Sulfate. Will check TTKG to rule out renal loss. BP control with spironolactone will help correct hypokalemia. 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 Renal function is close to his baseline. check urine electrolytes, urine Protein/cr ratio. supportive care for for CKD, avoid nephrotoxins, NSAIDs, IV contrast. 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
[2021-06-05 12:08] LABS: Total Cells Counted 100
[2021-06-05 12:10] LABS: Toxic Granulation 1+
[2021-06-05 12:11] LABS: Ovalocytes Few; Poikilocytosis Few
[2021-06-05 12:13] LABS: Platelet Estimate Consistent w Auto
--- NOTE | 2021-06-05 12:36 | Progress Note ---
Assessment and Plan Assessment and plan: Assessment and plan: (1) COPD with exacerbation (improving) Status: Acute Plan to address problem: History of emphysema Admit the patient to the medical telemetry. Oxygen per nasal cannula 3 L/min. DuoNeb by nebulizer every 4 hours. Albuterol via nebulizer every [address] chest demonstrates preseptal centrilobular emphysema with bullous disease in the apical aspect of lung. Please refer to official report for additional details Prednisone 40 mg p.o. daily x5 days total therapy (2) Acute kidney injury superimposed on CKD Status: Acute Plan to address problem: Creatinine 1.6 on admission. avoid nephrotoxic drug. Renally dose medication. Nephrology is consulted (3) Hypertensive emergency Status: Acute Plan to address problem: Hydralazine 10 mg IV every 6 hours as needed, hydralazine 25 mg p.o. every 8 hours doxazosin 2 mg p.o. daily, metoprolol 50 mg p.o. twice daily. Blood pressure still remains elevated on a.m. encounter, resume home amlodipine, clonidine. We will monitor the blood pressure closely (4) Diabetes with hyperglycemia Status: Acute Plan to address problem: We will put the patient on a Humalog sliding scale Accu-Chek before meals and at bedtime with moderate dose coverage. We will monitor the glucose closely Hold home medications Diabetic diet (5) Hypokalemia (resolved) Status: Acute Plan to address problem: Now resolved. Patient potassium at 4.5. (6) Hypomagnesemia Status: Acute Plan to address problem: Patient get 2 g of IV magnesium we recheck the magnesium in the morning Pending repeat magnesium lab (7) Malnutrition Status: Acute Plan to address problem: We will consult dietitian for evaluation of malnutrition and recommendation (8) UTI (urinary tract infection) Status: Acute Plan to address problem: Rocephin 2 g IV daily. we will do the blood culture urine culture. (9) Weakness Status: Acute Plan to address problem: We will consult dietitian for evaluation. Multivitamin 1 tablet p.o. daily. PT evaluation Physical therapy consulted for evaluation (10) DVT prophylaxis Status: Acute Plan to address problem: Heparin 5000 units subcu every 8 hours for DVT prophylaxis. Patient is a full code Dispo: Overall clinical picture has improved from admission. No longer requiring supplemental oxygen. Blood pressure elevated, resumed home amlodipine and clonidine. Consult placed to physical therapy for evaluation of weakness. Case management consulted for discharge planning History Interval history: 06/05/2021: Mr. Blancas was doing well this morning. He states that while he is still feeling a little weak but his respiratory status has significantly improved. Patient states that off oxygen he is breathing well. His saturations were 95% this morning. Concerning was his elevated blood pressure of 175/99. Home medications amlodipine, clonidine were resumed. We will continue to monitor blood pressure. Hospitalist Physical - Physical exam Narrative exam: Physical Exam: GENERAL APPEARANCE: Pleasant, thin, alert and cooperative, and appears to be in no acute distress. On room air HEAD: normocephalic. EYES: PERRL, EOMI. Vision is grossly intact. EARS: No gross deformities NOSE: No nasal discharge. THROAT: Oral cavity and pharynx normal. No inflammation, swelling, exudate, or lesions. Teeth and gingiva in good general condition. NECK: Neck supple, non-tender without lymphadenopathy, masses or thyromegaly. CARDIAC: Normal S1 and S2. No S3, S4 or murmurs. Rhythm is regular. There is no peripheral edema, cyanosis or pallor. Extremities are warm and well perfused. Capillary refill is less than 2 seconds. No carotid bruits. LUNGS: Clear to auscultation and percussion with the exception of slight wheezing noted on lung exam. Poor air movement in the setting of chronic disease. ABDOMEN: Positive bowel sounds. Soft, nondistended, nontender. No guarding or rebound. No masses. MUSKULOSKELETAL: Adequately aligned spine. ROM intact spine and extremities. No joint erythema or tenderness. BACK: Examination of the spine reveals normal gait and posture EXTREMITIES: No significant deformity or joint abnormality. No edema. Peripheral pulses intact. No varicosities. NEUROLOGICAL: CN II-XII intact. Strength and sensation symmetric and intact throughout. Reflexes 2+ throughout. PSYCHIATRIC: The mental examination revealed the patient was oriented to person, place, and time. - Constitutional Vitals: Temp Pulse Resp BP Pulse Ox 97.7 F 156 H 23 175/99 90 06/05/21 09:27 06/05/21 10:01 06/05/21 10:01 06/05/21 10:06/05/21 10:01 General appearance: Present: no acute distress, well-nourished HEART Score - HEART Score Troponin: Troponin T < 0.010 ng/mL (0.00-0.029) 06/04/21 17:26 Results - Labs CBC & Chem 7: 06/05/21 04:34 06/05/21 04:34 Labs: Laboratory Last Values WBC 6.2 K/mm3 (4.5-11.0) 06/05/21 04:34 RBC 3.60 M/mm3 (3.65-5.03) L 06/05/21 04:34 Hgb 10.4 gm/dl (11.8-15.2) L 06/05/21 04:34 Hct 31.6 % (35.5-45.6) L 06/05/21 04:34 MCV 88 fl (84-94) 06/05/21 04:34 MCH 29 pg (28-32) 06/05/21 04:34 MCHC 33 % (32-34) 06/05/21 04:34 RDW 16.1 % (13.2-15.2) H 06/05/21 04:34 Plt Count 153 K/mm3 (140-440) 06/05/21 04:34 Lymph % (Auto) 18.8 % (13.4-35.0) 06/04/21 17: [place] % (Auto) 7.1 % (0.0-7.3) 06/04/21 17: Eos % (Auto) 1.1 % (0.0-4.3) 06/04/21 17: Baso % (Auto) 0.4 % (0.0-1.8) 06/04/21 17: Lymph # (Auto) 1.1 K/mm3 (1.2-5.4) L 06/04/21 17: [place] # (Auto) 0.4 K/mm3 (0.0-0.8) 06/04/21 17: Eos # (Auto) 0.1 K/mm3 (0.0-0.4) 06/04/21 17: Baso # (Auto) 0.0 K/mm3 (0.0-0.1) 06/04/21 17:26 Add Manual Diff Complete 06/05/21 04:34 Total Counted 100 06/05/21 04:34 Seg Neutrophils % Kidney Trimmer 06/05/21 04:34 Seg Neuts % (Manual) 94.0 % (40.0-70.0) H 06/05/21 04:34 Lymphocytes % (Manual) 5.0 % (13.4-35.0) L 06/05/21 04:34 Monocytes % (Manual) 1.0 % (0.0-7.3) 06/05/21 04:34 Nucleated RBC % Not Reportable 06/05/21 04:34 Seg Neutrophils # 4.2 K/mm3 (1.8-7.7) 06/04/21 17:26 Seg Neutrophils # Man 5.8 K/mm3 (1.8-7.7) 06/05/21 04:34 Band Neutrophils # 0.0 K/mm3 06/05/21 04:34 Lymphocytes # (Manual) 0.3 K/mm3 (1.2-5.4) L 06/05/21 04:34 Abs React Lymphs (Man) 0.0 K/mm3 06/05/21 04:34 Monocytes # (Manual) 0.1 K/mm3 (0.0-0.8) 06/05/21 04:34 Eosinophils # (Manual) 0.0 K/mm3 (0.0-0.4) 06/05/21 04:34 Basophils # (Manual) 0.0 K/mm3 (0.0-0.1) 06/05/21 04:34 Metamyelocytes # 0.0 K/mm3 06/05/21 04:34 Myelocytes # 0.0 K/mm3 06/05/21 04:34 Promyelocytes # 0.0 K/mm3 06/05/21 04:34 Blast Cells # 0.0 K/mm3 06/05/21 04:34 WBC Morphology Not Reportable 06/05/21 04:34 Hypersegmented Neuts Not Reportable 06/05/21 04:34 Hyposegmented Neuts Not Reportable 06/05/21 04:34 Hypogranular Neuts Not Reportable 06/05/21 04:34 Smudge Cells Not Reportable 06/05/21 04:34 Toxic Granulation 1+ 06/05/21 04:34 Toxic Vacuolation Not Reportable 06/05/21 04:34 Dohle Bodies Not Reportable 06/05/21 04:34 Pelger-Huet Anomaly Not Reportable 06/05/21 04:34 Jefe Rods Not Reportable 06/05/21 04:34 Platelet Estimate Consistent w auto 06/05/21 04:34 Clumped Platelets Not Reportable 06/05/21 04:34 Plt Clumps, EDTA Not Reportable 06/05/21 04:34 Large Platelets Not Reportable 06/05/21 04:34 Giant Platelets Not Reportable 06/05/21 04:34 Platelet Satelliting Not Reportable 06/05/21 04:34 Plt Morphology Comment Not Reportable 06/05/21 04:34 RBC Morphology Not Reportable 06/05/21 04:34 Dimorphic RBCs Not Reportable 06/05/21 04:34 Polychromasia Not Reportable 06/05/21 04:34 Hypochromasia Not Reportable 06/05/21 04:34 Poikilocytosis Few 06/05/21 04:34 Anisocytosis Not Reportable 06/05/21 04:34 Microcytosis Not Reportable 06/05/21 04:34 Macrocytosis Not Reportable 06/05/21 04:34 Spherocytes Not Reportable 06/05/21 04:34 Pappenheimer Bodies Not Reportable 06/05/21 04:34 Sickle Cells Not Reportable 06/05/21 04:34 Target Cells Not Reportable 06/05/21 04:34 Tear Drop Cells Not Reportable 06/05/21 04:34 Ovalocytes Few 06/05/21 04:34 Helmet Cells Not Reportable 06/05/21 04:34 [place] Bodies Not Reportable 06/05/21 04:34 [place] Rings Not Reportable 06/05/21 04:34 [place] Cells Not Reportable 06/05/21 04:34 Bite Cells Not Reportable 06/05/21 04:34 Crenated Cell Not Reportable 06/05/21 04:34 Elliptocytes Not Reportable 06/05/21 04:34 Acanthocytes (Spur) Few 06/05/21 04:34 Rouleaux Not Reportable 06/05/21 04:34 Hemoglobin C Crystals Not Reportable 06/05/21 04:34 Schistocytes Not Reportable 06/05/21 04:34 Malaria parasites Not Reportable 06/05/21 04:34 Yonathan Bodies Not Reportable 06/05/21 04:34 Hem Pathologist Commnt No 06/05/21 04:34 PT 13.5 Sec. (12.2-14.9) 06/04/21 17:26 INR 0.97 (0.87-1.13) 06/04/21 17:26 D-Dimer 661.38 ng/mlDDU (0-234) H 06/04/21 19:01 Sodium 145 mmol/L (137-145) 06/05/21 04:34 Potassium 4.5 mmol/L (3.6-5.0) D 06/05/21 04:34 Chloride 108.9 mmol/L (98-107) H 06/05/21 04:34 Carbon Dioxide 22 mmol/L (22-30) 06/05/21 04:34 Anion Gap 19 mmol/L 06/05/21 04:34 BUN 21 mg/dL (9-20) H 06/05/21 04:34 Creatinine 1.6 mg/dL (0.8-1.3) H 06/05/21 04:34 Estimated GFR 50 ml/min 06/05/21 04:34 BUN/Creatinine Ratio 13 % 06/05/21 04:34 Glucose 148 mg/dL (75-100) H 06/05/21 04:34 POC Glucose 145 mg/dL (70-105) H 06/04/21 22:34 Lactic Acid 0.60 mmol/L (0.7-2.0) L 06/04/21 17:26 Calcium 7.7 mg/dL (8.4-10.2) L 06/05/21 04:34 Magnesium 1.40 mg/dL (1.7-2.3) L 06/04/21 17:26 Total Bilirubin 0.70 mg/dL (0.1-1.2) 06/04/21 17:26 AST 17 units/L (5-40) 06/04/21 17:26 ALT 14 units/L (7-56) 06/04/21 17:26 Alkaline Phosphatase 111 units/L (35-129) 06/04/21 17:26 Total Creatine Kinase 55 units/L (55-170) 06/04/21 17:26 Troponin T < 0.010 ng/mL (0.00-0.029) 06/04/21 17:26 Total Protein 5.9 g/dL (6.3-8.2) L 06/04/21 17: Albumin 3.1 g/dL (3.9-5) L 06/04/21 17: Albumin/Globulin Ratio 1.1 % 06/04/21 17:26 TSH 4.610 mlU/mL (0.270-4.200) H 06/04/21 17:26 Urine Color Yellow (Yellow) 06/04/21 19:14 Urine Turbidity Cloudy (Clear) 06/04/21 19:14 Urine pH 6.0 (5.0-7.0) 06/04/21 19:14 Ur Specific [place] 1.011 (1.003-1.030) 06/04/21 19:14 Urine Protein 100 mg/dl mg/dL (Negative) 06/04/21 19:14 Urine Glucose (UA) Neg mg/dL (Negative) 06/04/21 19:14 Urine Ketones Tr mg/dL (Negative) 06/04/21 19:14 Urine Blood Sm (Negative) 06/04/21 19:14 Urine Nitrite Neg (Negative) 06/04/21 19:14 Urine Bilirubin Neg (Negative) 06/04/21 19:14 Urine Urobilinogen < 2.0 mg/dL (<2.0) 06/04/21 19:14 Ur Leukocyte Esterase Lg (Negative) 06/04/21 19:14 Urine WBC (Auto) > 182.0 /HPF (0.0-6.0) H 06/04/21 19:14 Urine RBC (Auto) 7.0 /HPF (0.0-6.0) 06/04/21 19:14 Urine Bacteria (Auto) 1+ /HPF (Negative) 06/04/21 19:14 Urine Yeast (Budding) 3+ /HPF 06/04/21 19:14 Urine Sperm 1+ /HPF (OVERNIGHT ASSOCIATE) 06/04/21 19:14 Microbiology: Microbiology 06/04/21 19:14 Urine,Catheterized - Straight Catheter Urine Culture - Preliminary 06/04/21 17:26 Peripheral/Venous Blood Culture - Preliminary Culture in Progress 06/04/21 17:26 Peripheral/Venous Blood Culture - Preliminary Culture in Progress Active Medications - Current Medications Current Medications: Generic Name Dose Route Start Last Admin Trade Name Freq PRN Reason Stop Dose Admin Acetaminophen 650 mg 06/04/21 21:33 06/05/21 10:48 Acetaminophen 325 Mg Tab PO 650 mg Q4H PRN Administration Pain MILD(1-3)/Fever >100.5/TAVARES Albuterol 2.5 mg 06/04/21 21:33 Albuterol 2.5 Mg/3 Ml Nebu IH Q4HRT PRN Shortness Of Breath Albuterol/Ipratropium 1 ampul 06/05/21 02:00 06/05/21 08:44 Ipratropium/Albuterol Sulfate 3 Ml Ampul.Neb IH Not Given Q6HRT NITESH Dextrose 0 ml 06/04/21 21:51 Dextrose 50% In Water (25gm) 50 Ml Syringe IV Q30MIN PRN Hypoglycemia Protocol Doxazosin Mesylate 2 mg 06/04/21 22:00 06/05/21 10:47 Doxazosin 1 Mg Tab PO 2 mg QDAY NITESH Administration Famotidine 20 mg 06/04/21 22:00 06/05/21 10:48 Famotidine 20 Mg Tab PO 20 mg BID NITESH Administration Folic Acid 1 mg 06/05/21 10:00 06/05/21 10:48 Folic Acid 1 Mg Tab PO 1 mg DAILY NITESH Administration Heparin Sodium (Porcine) 5,000 unit 06/04/21 22:00 06/05/21 10:48 Heparin 5,000 Unit/1 Ml Vial SUB-Q 5,000 unit Q12HR NITESH Administration Hydralazine HCl 25 mg 06/04/21 22:00 06/05/21 06:19 Hydralazine 25 Mg Tab PO 25 mg Q8HR NITESH Administration Hydralazine HCl 10 mg 06/04/21 21:38 Hydralazine 20 Mg/1 Ml Inj IV Q6H PRN Blood Pressure Hydromorphone HCl 0.5 mg 06/04/21 21:33 Hydromorphone 1 Mg/1 Ml Inj IV Q3H PRN Pain , Severe (7-10) Ceftriaxone Sodium 2 gm in 100 mls @ 200 mls/hr 06/05/21 10:00 06/05/21 11:59 Rocephin/Ns 2 Gm/100 Ml IV 200 mls/hr Q24HR NITESH Administration Protocol Insulin Human Lispro 0 unit 06/04/21 22:00 06/04/21 22:51 Insulin Lispro 100 Unit/Ml SUB-Q Not Given ACHS [facility] Protocol Metoprolol Tartrate 50 mg 06/04/21 22:00 06/05/21 10:47 Metoprolol Tartrate 50 Mg Tab PO 50 mg BID@0800,1700 [facility] Administration Miscellaneous Medication 30 mcg 06/05/21 10:00 Rayaldee PO DAILY [facility] Multivitamins 1 each 06/04/21 21:51 06/05/21 10:48 Multivitamins ,Therapeutic Tab PO 1 each DAILY NITESH Administration Ondansetron HCl 4 mg 06/04/21 21:33 Ondansetron 4 Mg/2 Ml Inj IV Q8H PRN Nausea And Vomiting Prednisone 40 mg 06/05/21 10:00 06/05/21 10:57 Prednisone 20 Mg Tab PO 40 mg QDAY@0800 NITESH Administration Sodium Chloride 10 ml 06/04/21 22:00 06/05/21 10:49 Sodium Chloride 0.9% 10 Ml Flush Syringe IV 10 ml BID NITESH Administration Sodium Chloride 10 ml 06/04/21 21:33 Sodium Chloride 0.9% 10 Ml Flush Syringe IV PRN PRN LINE FLUSH
[2021-06-05] MEDS: amLODIPine 5 MG TAB PO SCH (16:39)
[2021-06-05] MEDS: AZITHROMYCIN 250 MG TAB PO SCH (16:40)
[2021-06-05] MEDS ORDERED: PRAVASTATIN 40 MG TAB PO SCH (22:00)
[2021-06-05] MEDS: cloNIDine 0.1 MG TAB PO SCH (22:25)
[2021-06-06] MEDS: IPRATROPIUM/ALBUTEROL SULFATE 3 ML AMPUL.NEB IH SCH ×3 (00:34→09:04)
[2021-06-06] MEDS: INSULIN LISPRO 100 UNIT/ML SUB-Q SCH ×4 (01:30→13:53)
[2021-06-06] MEDS: hydrALAZINE 25 MG TAB PO SCH ×3 (06:13→14:01)
--- NOTE | 2021-06-06 07:42 | Progress Note ---
Assessment and Plan Assessment and plan: Assessment and plan: (1) COPD with exacerbation (improving) Status: Acute Plan to address problem: History of emphysema Admit the patient to the medical telemetry. Oxygen per nasal cannula 3 L/min. DuoNeb by nebulizer every 4 hours. Albuterol via nebulizer every [address] chest demonstrates preseptal centrilobular emphysema with bullous disease in the apical aspect of lung. Please refer to official report for additional details Prednisone 40 mg p.o. daily x5 days total therapy (2) Acute kidney injury superimposed on CKD Status: Acute Plan to address problem: Creatinine 1.6 on admission. avoid nephrotoxic drug. Renally dose medication. Nephrology is consulted (3) Hypertensive emergency Status: Acute Plan to address problem: Hydralazine 10 mg IV every 6 hours as needed, hydralazine 25 mg p.o. every 8 hours doxazosin 2 mg p.o. daily, metoprolol 50 mg p.o. twice daily. Blood pressure still remains elevated on a.m. encounter, resume home amlodipine, clonidine. We will monitor the blood pressure closely (4) Diabetes with hyperglycemia Status: Acute Plan to address problem: We will put the patient on a Humalog sliding scale Accu-Chek before meals and at bedtime with moderate dose coverage. We will monitor the glucose closely Hold home medications Diabetic diet (5) Hypokalemia (resolved) Status: Acute Plan to address problem: Now resolved. Patient potassium at 4.5. (6) Hypomagnesemia Status: Acute Plan to address problem: Patient get 2 g of IV magnesium we recheck the magnesium in the morning Pending repeat magnesium lab (7) Malnutrition Status: Acute Plan to address problem: We will consult dietitian for evaluation of malnutrition and recommendation (8) UTI (urinary tract infection) Status: Acute Plan to address problem: Rocephin 2 g IV daily. we will do the blood culture urine culture. (9) Weakness Status: Acute Plan to address problem: We will consult dietitian for evaluation. Multivitamin 1 tablet p.o. daily. PT evaluation Physical therapy consulted for evaluation (10) DVT prophylaxis Status: Acute Plan to address problem: Heparin 5000 units subcu every 8 hours for DVT prophylaxis. Patient is a full code Dispo: Overall clinical picture has improved from admission. No longer requiring supplemental oxygen. Blood pressure elevated, resumed home amlodipine and clonidine. Consult placed to physical therapy for evaluation of weakness. Case management consulted for discharge planning Hospitalist Physical - Constitutional Vitals: Temp Pulse Resp BP Pulse Ox 97.9 F 55 L 18 137/71 96 06/06/21 03:40 06/06/21 06:13 06/06/21 03:40 06/06/21 06:13 06/06/21 03:40 General appearance: Present: no acute distress, well-nourished HEART Score - HEART Score Troponin: Troponin T < 0.010 ng/mL (0.00-0.029) 06/04/21 17:26 Results - Labs CBC & Chem 7: 06/05/21 04:34 06/05/21 04:34 Labs: Laboratory Last Values WBC 6.2 K/mm3 (4.5-11.0) 06/05/21 04:34 RBC 3.60 M/mm3 (3.65-5.03) L 06/05/21 04:34 Hgb 10.4 gm/dl (11.8-15.2) L 06/05/21 04:34 Hct 31.6 % (35.5-45.6) L 06/05/21 04:34 MCV 88 fl (84-94) 06/05/21 04:34 MCH 29 pg (28-32) 06/05/21 04:34 MCHC 33 % (32-34) 06/05/21 04:34 RDW 16.1 % (13.2-15.2) H 06/05/21 04:34 Plt Count 153 K/mm3 (140-440) 06/05/21 04:34 Lymph % (Auto) 18.8 % (13.4-35.0) 06/04/21 17:26 [place] % (Auto) 7.1 % (0.0-7.3) 06/04/21 17: Eos % (Auto) 1.1 % (0.0-4.3) 06/04/21 17: Baso % (Auto) 0.4 % (0.0-1.8) 06/04/21 17:26 Lymph # (Auto) 1.1 K/mm3 (1.2-5.4) L 06/04/21 17:26 [place] # (Auto) 0.4 K/mm3 (0.0-0.8) 06/04/21 17:26 Eos # (Auto) 0.1 K/mm3 (0.0-0.4) 06/04/21 17:26 Baso # (Auto) 0.0 K/mm3 (0.0-0.1) 06/04/21 17:26 Add Manual Diff Complete 06/05/21 04:34 Total Counted 100 06/05/21 04:34 Seg Neutrophils % Dumper Bailer Operator 06/05/21 04:34 Seg Neuts % (Manual) 94.0 % (40.0-70.0) H 06/05/21 04:34 Lymphocytes % (Manual) 5.0 % (13.4-35.0) L 06/05/21 04:34 Monocytes % (Manual) 1.0 % (0.0-7.3) 06/05/21 04:34 Nucleated RBC % Not Reportable 06/05/21 04:34 Seg Neutrophils # 4.2 K/mm3 (1.8-7.7) 06/04/21 17:26 Seg Neutrophils # Man 5.8 K/mm3 (1.8-7.7) 06/05/21 04:34 Band Neutrophils # 0.0 K/mm3 06/05/21 04:34 Lymphocytes # (Manual) 0.3 K/mm3 (1.2-5.4) L 06/05/21 04:34 Abs React Lymphs (Man) 0.0 K/mm3 06/05/21 04:34 Monocytes # (Manual) 0.1 K/mm3 (0.0-0.8) 06/05/21 04:34 Eosinophils # (Manual) 0.0 K/mm3 (0.0-0.4) 06/05/21 04:34 Basophils # (Manual) 0.0 K/mm3 (0.0-0.1) 06/05/21 04:34 Metamyelocytes # 0.0 K/mm3 06/05/21 04:34 Myelocytes # 0.0 K/mm3 06/05/21 04:34 Promyelocytes # 0.0 K/mm3 06/05/21 04:34 Blast Cells # 0.0 K/mm3 06/05/21 04:34 WBC Morphology Not Reportable 06/05/21 04:34 Hypersegmented Neuts Not Reportable 06/05/21 04:34 Hyposegmented Neuts Not Reportable 06/05/21 04:34 Hypogranular Neuts Not Reportable 06/05/21 04:34 Smudge Cells Not Reportable 06/05/21 04:34 Toxic Granulation 1+ 06/05/21 04:34 Toxic Vacuolation Not Reportable 06/05/21 04:34 Dohle Bodies Not Reportable 06/05/21 04:34 Pelger-Huet Anomaly Not Reportable 06/05/21 04:34 Jefe Rods Not Reportable 06/05/21 04:34 Platelet Estimate Consistent w auto 06/05/21 04:34 Clumped Platelets Not Reportable 06/05/21 04:34 Plt Clumps, EDTA Not Reportable 06/05/21 04:34 Large Platelets Not Reportable 06/05/21 04:34 Giant Platelets Not Reportable 06/05/21 04:34 Platelet Satelliting Not Reportable 06/05/21 04:34 Plt Morphology Comment Not Reportable 06/05/21 04:34 RBC Morphology Not Reportable 06/05/21 04:34 Dimorphic RBCs Not Reportable 06/05/21 04:34 Polychromasia Not Reportable 06/05/21 04:34 Hypochromasia Not Reportable 06/05/21 04:34 Poikilocytosis Few 06/05/21 04:34 Anisocytosis Not Reportable 06/05/21 04:34 Microcytosis Not Reportable 06/05/21 04:34 Macrocytosis Not Reportable 06/05/21 04:34 Spherocytes Not Reportable 06/05/21 04:34 Pappenheimer Bodies Not Reportable 06/05/21 04:34 Sickle Cells Not Reportable 06/05/21 04:34 Target Cells Not Reportable 06/05/21 04:34 Tear Drop Cells Not Reportable 06/05/21 04:34 Ovalocytes Few 06/05/21 04:34 Helmet Cells Not Reportable 06/05/21 04:34 [place] Bodies Not Reportable 06/05/21 04:34 [place] Rings Not Reportable 06/05/21 04:34 [place] Cells Not Reportable 06/05/21 04:34 Bite Cells Not Reportable 06/05/21 04:34 Crenated Cell Not Reportable 06/05/21 04:34 Elliptocytes Not Reportable 06/05/21 04:34 Acanthocytes (Spur) Few 06/05/21 04:34 Rouleaux Not Reportable 06/05/21 04:34 Hemoglobin C Crystals Not Reportable 06/05/21 04:34 Schistocytes Not Reportable 06/05/21 04:34 Malaria parasites Not Reportable 06/05/21 04:34 Yonathan Bodies Not Reportable 06/05/21 04:34 Hem Pathologist Commnt No 06/05/21 04:34 PT 13.5 Sec. (12.2-14.9) 06/04/21 17:26 INR 0.97 (0.87-1.13) 06/04/21 17:26 D-Dimer 661.38 ng/mlDDU (0-234) H 06/04/21 19:01 Sodium 145 mmol/L (137-145) 06/05/21 04:34 Potassium 4.5 mmol/L (3.6-5.0) D 06/05/21 04:34 Chloride 108.9 mmol/L (98-107) H 06/05/21 04:34 Carbon Dioxide 22 mmol/L (22-30) 06/05/21 04:34 Anion Gap 19 mmol/L 06/05/21 04:34 BUN 21 mg/dL (9-20) H 06/05/21 04:34 Creatinine 1.6 mg/dL (0.8-1.3) H 06/05/21 04:34 Estimated GFR 50 ml/min 06/05/21 04:34 BUN/Creatinine Ratio 13 % 06/05/21 04:34 Glucose 148 mg/dL (75-100) H 06/05/21 04:34 POC Glucose 180 mg/dL (70-105) H 06/06/21 01:04 Osmolality 294 Mosm/kg 06/06/21 04:46 Lactic Acid 0.60 mmol/L (0.7-2.0) L 06/04/21 17:26 Calcium 7.7 mg/dL (8.4-10.2) L 06/05/21 04:34 Magnesium 1.80 mg/dL (1.7-2.3) 06/05/21 15:18 Total Bilirubin 0.70 mg/dL (0.1-1.2) 06/04/21 17:26 AST 17 units/L (5-40) 06/04/21 17:26 ALT 14 units/L (7-56) 06/04/21 17:26 Alkaline Phosphatase 111 units/L (35-129) 06/04/21 17:26 Total Creatine Kinase 55 units/L (55-170) 06/04/21 17:26 Troponin T < 0.010 ng/mL (0.00-0.029) 06/04/21 17:26 Total Protein 5.9 g/dL (6.3-8.2) L 06/04/21 17:26 Albumin 3.1 g/dL (3.9-5) L 06/04/21 17: Albumin/Globulin Ratio 1.1 % 06/04/21 17:26 TSH 4.610 mlU/mL (0.270-4.200) H 06/04/21 17:26 Urine Color Yellow (Yellow) 06/04/21 19:14 Urine Turbidity Cloudy (Clear) 06/04/21 19:14 Urine pH 6.0 (5.0-7.0) 06/04/21 19:14 Ur Specific [place] 1.011 (1.003-1.030) 06/04/21 19:14 Urine Protein 100 mg/dl mg/dL (Negative) 06/04/21 19:14 Urine Glucose (UA) Neg mg/dL (Negative) 06/04/21 19:14 Urine Ketones Tr mg/dL (Negative) 06/04/21 19:14 Urine Blood Sm (Negative) 06/04/21 19:14 Urine Nitrite Neg (Negative) 06/04/21 19:14 Urine Bilirubin Neg (Negative) 06/04/21 19:14 Urine Urobilinogen < 2.0 mg/dL (<2.0) 06/04/21 19:14 Ur Leukocyte Esterase Lg (Negative) 06/04/21 19:14 Urine WBC (Auto) > 182.0 /HPF (0.0-6.0) H 06/04/21 19:14 Urine RBC (Auto) 7.0 /HPF (0.0-6.0) 06/04/21 19:14 Urine Bacteria (Auto) 1+ /HPF (Negative) 06/04/21 19:14 Urine Yeast (Budding) 3+ /HPF 06/04/21 19:14 Urine Sperm 1+ /HPF (CNC CUTTING OPERATOR) 06/04/21 19:14 Microbiology: Microbiology 06/04/21 17:26 Peripheral/Venous Blood Culture - Preliminary NO GROWTH AFTER 24 HOURS 06/04/21 17:26 Peripheral/Venous Blood Culture - Preliminary NO GROWTH AFTER 24 HOURS 06/04/21 19:14 Urine,Catheterized - Straight Catheter Urine Culture - Preliminary Mirza/IV: Voiding Method Toilet Active Medications - Current Medications Current Medications: Generic Name Dose Route Start Last Admin Trade Name Freq PRN Reason Stop Dose Admin Acetaminophen 650 mg 06/04/21 21:33 06/05/21 22:26 Acetaminophen 325 Mg Tab PO 650 mg Q4H PRN Administration Pain MILD(1-3)/Fever >100.5/TAVARES Albuterol 2.5 mg 06/04/21 21:33 Albuterol 2.5 Mg/3 Ml Nebu IH Q4HRT PRN Shortness Of Breath Albuterol/Ipratropium 1 ampul 06/05/21 02:00 06/06/21 02:13 Ipratropium/Albuterol Sulfate 3 Ml Ampul.Neb IH 1 ampul Q6HRT NITESH Administration Amlodipine Besylate 5 mg 06/05/21 13:00 06/05/21 16:39 Amlodipine 5 Mg Tab PO 5 mg DAILY NITESH Administration Azithromycin 500 mg 06/05/21 14:00 06/05/21 16:40 Azithromycin 250 Mg Tab PO 06/07/21 10:01 500 mg QDAY NITESH Administration Protocol Clonidine HCl 0.1 mg 06/05/21 22:00 06/05/21 22:25 Clonidine 0.1 Mg Tab PO 0.1 mg BID NITESH Administration Dextrose 0 ml 06/04/21 21:51 Dextrose 50% In Water (25gm) 50 Ml Syringe IV Q30MIN PRN Hypoglycemia Protocol Doxazosin Mesylate 2 mg 06/04/21 22:00 06/05/21 10:47 Doxazosin 1 Mg Tab PO 2 mg QDAY NITESH Administration Famotidine 20 mg 06/04/21 22:00 06/05/21 22:25 Famotidine 20 Mg Tab PO 20 mg BID NITESH Administration Folic Acid 1 mg 06/05/21 10:00 06/05/21 10:48 Folic Acid 1 Mg Tab PO 1 mg DAILY NITESH Administration Heparin Sodium (Porcine) 5,000 unit 06/04/21 22:00 06/05/21 22:26 Heparin 5,000 Unit/1 Ml Vial SUB-Q 5,000 unit Q12HR NITESH Administration Hydralazine HCl 25 mg 06/04/21 22:00 06/06/21 06:13 Hydralazine 25 Mg Tab PO 25 mg Q8HR NITESH Administration Hydralazine HCl 10 mg 06/04/21 21:38 Hydralazine 20 Mg/1 Ml Inj IV Q6H PRN Blood Pressure Hydralazine HCl 25 mg 06/05/21 14:00 06/06/21 06:14 Hydralazine 25 Mg Tab PO Not Given Q8HR [facility] Hydromorphone HCl 0.5 mg 06/04/21 21:33 Hydromorphone 1 Mg/1 Ml Inj IV Q3H PRN Pain , Severe (7-10) Insulin Human Lispro 0 unit 06/04/21 22:00 06/06/21 01:30 Insulin Lispro 100 Unit/Ml SUB-Q Not Given ACHS [facility] Protocol Metoprolol Tartrate 50 mg 06/04/21 22:00 06/05/21 16:39 Metoprolol Tartrate 50 Mg Tab PO 50 mg BID@0800,1700 [facility] Administration Miscellaneous Medication 30 mcg 06/05/21 10:00 Rayaldee PO DAILY [facility] Multivitamins 1 each 06/04/21 21:51 06/05/21 10:48 Multivitamins ,Therapeutic Tab PO 1 each DAILY [facility] Administration Ondansetron HCl 4 mg 06/04/21 21:33 Ondansetron 4 Mg/2 Ml Inj IV Q8H PRN Nausea And Vomiting Pravastatin Sodium 40 mg 06/05/21 22:00 06/05/21 22:26 Pravastatin 40 Mg Tab PO 40 mg QHS NITESH Administration Prednisone 40 mg 06/05/21 10:00 06/05/21 10:57 Prednisone 20 Mg Tab PO 40 mg QDAY@0800 NITESH Administration Sodium Chloride 10 ml 06/04/21 22:00 06/05/21 22:26 Sodium Chloride 0.9% 10 Ml Flush Syringe IV 10 ml BID NITESH Administration Sodium Chloride 10 ml 06/04/21 21:33 Sodium Chloride 0.9% 10 Ml Flush Syringe IV PRN PRN LINE FLUSH Spironolactone 25 mg 06/06/21 10:00 Spironolactone 25 Mg Tab PO QDAY NITESH Nutrition/Malnutrition Assess - Dietary Evaluation Nutrition/Malnutrition Findings: Nutrition Notes Start: 06/05/21 14:43 Freq: Status: Active Protocol: Document 06/05/21 14:43 CW (Rec: 06/05/21 14:59 CW [id number]) Nutrition Notes Need for Assessment generated from: MD Order,Education Initial or Follow up Assessment Current Diagnosis CKD(stage I-IV),COPD,Diabetes, Hypertension,Heart Failure Other Pertinent Diagnosis Malnutrition Current Diet Cardiac Labs/Tests BUN 21 Cr 1.6 BG 148 Pertinent Medications PREDNISONE KCl 40 mEq NS 1L Height 6 ft 4 in Weight 104.326 kg Usual Body Weight 80 kg [place] Body Weight (kg) 91.81 BMI 28.0 Intake Prior to Admission Fair Weight change and time frame weight gain of 26% x 1 year Weight Status Appropriate Subjective/Other Information MD consult for education. Pt provided with education regarding renal, heart healthy diet, and consistent carbohydrate diet. Pt reports a weight loss down to 150lbs but current weight states a weight gain. will monitor weight. Pt reports drinking ONS at home and would like to continue ONS for weight gain. Not needed unless weight loss begins to occur. Slight temporal wasting noted, may be related to advanced age. Pt also reports that ONS typically gives him loose stools. Burn Absent Trauma Absent GI Symptoms None Food Allergy No Current % PO Good (75-100%) Minimum of two criteria No Muscle Mass Mild Depletion (non-severe) #1 Nutrition Diagnosis Food and nutrition-related knowledge deficit Etiology heart healthy, renal, and T2DM nutrition therapy As Evidenced by Signs and Symptoms pt requesting information of which foods he needed to avoid and could consume Is patient on ventilator? No Is Patient Ambulatory and/or Out of Bed Yes REE-([place]-St. Jeor-ambulatory/OOB) [ [id number] NUTR.[id number]] Calculation Used for Recommendations [place]-St Jeor Additional Notes protein needs: 92 - 110g (1 - 1.2g/kgBW) fluid: 1500 - 1900 ml/day Nutrition Intervention Change Diet Order: Change diet to Cardiac Consistent Carbohydrate Diet Teaching Recipient Patient Learning Readiness Fair Teaching Methods Discussion,Handout Response to Teaching Verbalize understanding Education Handouts Provided Heart Healthy Consistent Carbohydrate nutrition therapy Renal diet nutrition therapy Barriers to Learning No Barriers RD phone number provided Yes Patient aware of follow up options Yes Anticipated Discharge Needs: Cardiac Consistent Carbohydrate Diet Revisit per MD consult or patient Sign Off request: Additional Comments S/O for diet education provided and good intakes
[2021-06-06 09:08] LABS: Calcium 8.6 mg/dL (8.4-10.2)
--- NOTE | 2021-06-06 09:45 | Progress Note ---
Assessment and Plan - Patient Problems (1) Hypokalemia Current Visit: No Status: Acute Plan to address problem: Patient has h/o chronic hypokalemia due to GI loss in the setting of chronic diarrhea. K replete after supplementation with KDur, and Mg Sulfate. Will check TTKG to rule out renal loss. BP control with spironolactone will help correct hypokalemia. 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 Renal function is close to his baseline. check urine electrolytes, urine Protein/cr ratio. supportive care for for CKD, avoid nephrotoxins, NSAIDs, IV contrast. 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 Subjective Date of service: 06/06/21 Principal diagnosis: Hypokalemia Interval history: Pt awake, alert, resting comfortably, in no acute respiratory distress, denies CP, fever, chills, dysuria Objective - Vital Signs Vital signs: Vital Signs - 12hr 06/05/21 06/05/21 06/05/21 22:25 22:26 23:15 Temperature 97.7 F Pulse Rate 63 56 L Pulse Rate [ Anterior Bilateral Throughout] Pulse Rate [ Apical] Respiratory 20 16 Rate Respiratory Rate [Anterior Bilateral Throughout] Blood Pressure 141/74 119/59 O2 Sat by Pulse 95 Oximetry 06/06/21 06/06/21 06/06/21 00:00 02:00 03:40 Temperature 97.9 F Pulse Rate 60 55 L Pulse Rate [ 68 Anterior Bilateral Throughout] Pulse Rate [ 80 Apical] Respiratory 20 18 Rate Respiratory 20 Rate [Anterior Bilateral Throughout] Blood Pressure 137/71 O2 Sat by Pulse 94 96 Oximetry 06/06/21 06/06/21 06/06/21 06:13 07:39 08:00 Temperature 98.7 F Pulse Rate 55 L 52 L Pulse Rate [ 58 L Anterior Bilateral Throughout] Pulse Rate [ Apical] Respiratory 18 Rate Respiratory 16 Rate [Anterior Bilateral Throughout] Blood Pressure 137/71 138/66 O2 Sat by Pulse 96 Oximetry 06/06/21 09:08 Temperature Pulse Rate Pulse Rate [ Anterior Bilateral Throughout] Pulse Rate [ Apical] Respiratory Rate Respiratory Rate [Anterior Bilateral Throughout] Blood Pressure O2 Sat by Pulse 100 Oximetry - General Appearance General appearance: well-developed, well-nourished, appears stated age EENT: ATNC, PERRL, mucous membranes moist Neck: no JVD Respiratory: Present: Clear to Ascultation Cardiology: regular, S1S2 Gastrointestinal: normoactive bowel sounds Integumentary: no rash Neurologic: no focal deficit, alert and oriented x3, strength 5/5, CN 3-12 intact Psychiatric: mood/affect appropriate, cooperative - Lab 06/05/21 04:34 06/06/21 04:46 Most recent lab results Calcium 8.6 mg/dL (8.4-10.2) 06/06/21 04:46 Magnesium 1.80 mg/dL (1.7-2.3) 06/05/21 15:18 Medications & Allergies - Medications Allergies/Adverse Reactions: Allergies ibuprofen Allergy (Verified 07/30/19 13:47) Hives metronidazole [From Flagyl] Allergy (Verified 07/30/19 13:47) Unknown nitroglycerin [From Nitro-Dur] Allergy (Verified 07/30/19 13:47) Rash Home Medications: Home Medications Medication Instructions Recorded Confirmed Last Taken Type Albuterol Sulfate [Proair 90 mcg IH QDAY 06/05/21 06/05/21 Unknown History Respiclick] Ergocalciferol (Vitamin D2) 50,000 unit PO QDAY 06/05/21 06/05/21 Unknown History [Vitamin D2] Fluticasone/Vilanterol [Breo 1 puff PO DAILY 06/05/21 06/05/21 Unknown History Ellipta 100-25 Mcg INH] Folic Acid 1 mg PO QDAY 06/05/21 06/05/21 Unknown History Losartan Potassium 100 mg PO QDAY 06/05/21 06/05/21 Unknown History Metoprolol Tartrate [Lopressor] 50 mg PO BID 06/05/21 06/05/21 Unknown History Simvastatin 20 mg PO QDAY 06/05/21 06/05/21 Unknown History amLODIPine [Norvasc] 5 mg PO DAILY 06/05/21 06/05/21 Unknown History calcitrioL [Rocaltrol] 1 mcg PO QDAY 06/05/21 06/05/21 Unknown History cloNIDine [Catapres] 0.1 mg PO BID 06/05/21 06/05/21 Unknown History glipiZIDE XL [Glucotrol Xl] 5 mg PO QAM 06/05/21 06/05/21 Unknown History hydrALAZINE [Apresoline] 25 mg PO Q8HR 06/05/21 06/05/21 Unknown History Active Medications: Generic Name Dose Route Start Last Admin Trade Name Freq PRN Reason Stop Dose Admin Acetaminophen 650 mg 06/04/21 21:33 06/05/21 22:26 Acetaminophen 325 Mg Tab PO 650 mg Q4H PRN Administration Pain MILD(1-3)/Fever >100.5/TAVARES Albuterol 2.5 mg 06/04/21 21:33 Albuterol 2.5 Mg/3 Ml Nebu IH Q4HRT PRN Shortness Of Breath Albuterol/Ipratropium 1 ampul 06/05/21 02:00 06/06/21 09:04 Ipratropium/Albuterol Sulfate 3 Ml Ampul.Neb IH 1 ampul Q6HRT NITESH Administration Amlodipine Besylate 5 mg 06/05/21 13:00 06/05/21 16:39 Amlodipine 5 Mg Tab PO 5 mg DAILY NITESH Administration Azithromycin 500 mg 06/05/21 14:00 06/05/21 16:40 Azithromycin 250 Mg Tab PO 06/07/21 10:01 500 mg QDAY NITESH Administration Protocol Clonidine HCl 0.1 mg 06/05/21 22:00 06/05/21 22:25 Clonidine 0.1 Mg Tab PO 0.1 mg BID NITESH Administration Dextrose 0 ml 06/04/21 21:51 Dextrose 50% In Water (25gm) 50 Ml Syringe IV Q30MIN PRN Hypoglycemia Protocol Doxazosin Mesylate 2 mg 06/04/21 22:00 06/05/21 10:47 Doxazosin 1 Mg Tab PO 2 mg QDAY NITESH Administration Famotidine 20 mg 06/04/21 22:00 06/05/21 22:25 Famotidine 20 Mg Tab PO 20 mg BID NITESH Administration Folic Acid 1 mg 06/05/21 10:00 06/05/21 10:48 Folic Acid 1 Mg Tab PO 1 mg DAILY NITESH Administration Heparin Sodium (Porcine) 5,000 unit 06/04/21 22:00 06/05/21 22:26 Heparin 5,000 Unit/1 Ml Vial SUB-Q 5,000 unit Q12HR NITESH Administration Hydralazine HCl 25 mg 06/04/21 22:00 06/06/21 06:13 Hydralazine 25 Mg Tab PO 25 mg Q8HR NITESH Administration Hydralazine HCl 10 mg 06/04/21 21:38 Hydralazine 20 Mg/1 Ml Inj IV Q6H PRN Blood Pressure Hydralazine HCl 25 mg 06/05/21 14:00 06/06/21 06:14 Hydralazine 25 Mg Tab PO Not Given Q8HR [facility] Hydromorphone HCl 0.5 mg 06/04/21 21:33 Hydromorphone 1 Mg/1 Ml Inj IV Q3H PRN Pain , Severe (7-10) Insulin Human Lispro 0 unit 06/04/21 22:00 06/06/21 01:30 Insulin Lispro 100 Unit/Ml SUB-Q Not Given ACHS [facility] Protocol Metoprolol Tartrate 50 mg 06/04/21 22:00 06/05/21 16:39 Metoprolol Tartrate 50 Mg Tab PO 50 mg BID@0800,1700 [facility] Administration Miscellaneous Medication 30 mcg 06/05/21 10:00 Rayaldee PO DAILY [facility] Multivitamins 1 each 06/04/21 21:51 06/05/21 10:48 Multivitamins ,Therapeutic Tab PO 1 each DAILY [facility] Administration Ondansetron HCl 4 mg 06/04/21 21:33 Ondansetron 4 Mg/2 Ml Inj IV Q8H PRN Nausea And Vomiting Pravastatin Sodium 40 mg 06/05/21 22:00 06/05/21 22:26 Pravastatin 40 Mg Tab PO 40 mg QHS NITESH Administration Prednisone 40 mg 06/05/21 10:00 06/05/21 10:57 Prednisone 20 Mg Tab PO 40 mg QDAY@0800 NITESH Administration Sodium Chloride 10 ml 06/04/21 22:00 06/05/21 22:26 Sodium Chloride 0.9% 10 Ml Flush Syringe IV 10 ml BID NITESH Administration Sodium Chloride 10 ml 06/04/21 21:33 Sodium Chloride 0.9% 10 Ml Flush Syringe IV PRN PRN LINE FLUSH Spironolactone 25 mg 06/06/21 10:00 Spironolactone 25 Mg Tab PO QDAY NITESH
--- NOTE | 2021-06-06 09:46 | Discharge Summary ---
Providers - Providers Date of Admission: 06/04/21 21:33 Date of discharge: 06/06/21 Attending physician: KIRSTEN VAUGHAN MD 06/04/21 Consult to Physician [CONS] Stat Comment: Consulting Provider: PIERRE BECKWITH Physician Instructions: Reason For Exam: htn ckd 06/04/21 21:51 Consult to Dietitian/Nutrition [CONS] Routine Physician Instructions: Reason For Exam: Reason for Consult: Diet education 06/05/21 13:05 Consult to Case Management [CONS] Routine Services Needed at Discharge: Other Notified:: welfare case worker Comment:: Discharge planning Physical Therapy Evaluation and Treat [CONS] Stat Comment: Reason For Exam: Evaluation and treat for weakness Primary care physician: DIE MACHINE OPERATOR Hospitalization Reason for admission: COPD Exacerbation, JAMEY on CKD Condition: Fair Hospital course: Assessment and plan: (1) COPD with exacerbation (improving) Status: Acute Plan to address problem: History of emphysema Admit the patient to the medical telemetry. Oxygen per nasal cannula 3 L/min. DuoNeb by nebulizer every 4 hours. Albuterol via nebulizer every [address] chest demonstrates preseptal centrilobular emphysema with bullous disease in the apical aspect of lung. Please refer to official report for additional details Prednisone 40 mg p.o. daily x5 days total therapy Will discharge home with azithromycin course, prednisone course, home albuterol Rx as needed, home Brio Ellipta Rx, Atrovent Rx for maintenance. (2) Acute kidney injury superimposed on CKD Status: Acute Plan to address problem: Creatinine 1.6 on admission. avoid nephrotoxic drug. Renally dose medication. Nephrology is consulted (3) Hypertensive emergency Status: Acute Plan to address problem: Hydralazine 10 mg IV every 6 hours as needed, hydralazine 25 mg p.o. every 8 hours doxazosin 2 mg p.o. daily, metoprolol 50 mg p.o. twice daily. Blood pressure still remains elevated on a.m. encounter, resume home amlodipine, clonidine. We will monitor the blood pressure closely Added clonidine, spironolactone, hydralazine Continue home metoprolol Discontinue home losartan due to renal function (4) Diabetes with hyperglycemia Status: Acute Plan to address problem: We will put the patient on a Humalog sliding scale Accu-Chek before meals and at bedtime with moderate dose coverage. We will monitor the glucose closely Hold home medications Diabetic diet (5) Hypokalemia (resolved) Status: Acute Plan to address problem: Now resolved. Patient potassium at 4.5. (6) Hypomagnesemia Status: Acute Plan to address problem: Patient get 2 g of IV magnesium we recheck the magnesium in the morning Pending repeat magnesium lab (7) Malnutrition Status: Acute Plan to address problem: We will consult dietitian for evaluation of malnutrition and recommendation (8) UTI (urinary tract infection) Status: Acute Plan to address problem: Discontinued Rocephin 2 g IV daily. No growth on urine culture. Patient has no symptoms. (9) Weakness Status: Acute Plan to address problem: We will consult dietitian for evaluation. Multivitamin 1 tablet p.o. daily. PT evaluation Physical therapy consulted for evaluation Now resolved. Patient states that he has back at his baseline, he uses a cane for ambulation. Has good social support at home with . (10) DVT prophylaxis Status: Acute Plan to address problem: Heparin 5000 units subcu every 8 hours for DVT prophylaxis. Patient is a full code Interval history: 06/05/2021: Mr. Laguerre was doing well this morning. He states that while he is still feeling a little weak but his respiratory status has significantly improved. Patient states that off oxygen he is breathing well. His saturations were 95% this morning. Concerning was his elevated blood pressure of 175/99. Home medications amlodipine, clonidine were resumed. We will continue to monitor blood pressure. 06/06/2021: Mr. Laguerre is doing well this a.m. He is no longer requiring supplemental oxygen. He states that he is feeling well and would like to go home. We will be discharging him today and advising follow-up with his primary doctor as well as cad developer and precision structural metal fitter. He states he has an appointment with his precision structural metal fitter tomorrow Disposition: TO HOME OR SELFCARE Final Discharge Diagnosis (Prints w/discharge instructions): COPD Exacerbation Time spent for discharge: 25 - Discharge Diagnoses (1) COPD (chronic obstructive pulmonary disease) Status: Acute (2) Chronic kidney disease, stage 3a Status: Acute (3) Emphysema lung Status: Acute (4) Hypertensive emergency Status: Acute (5) Malnutrition Status: Acute (6) Weakness Status: Acute (7) Acute kidney injury superimposed on CKD Status: Acute Core Measure Documentation - Palliative Care Palliative Care/ Comfort Measures: Not Applicable - Core Measures Any of the following diagnoses?: none Exam - Physical Exam Narrative exam: Physical Exam: GENERAL APPEARANCE: Pleasant, thin, alert and cooperative, and appears to be in no acute distress. On room air HEAD: normocephalic. EYES: PERRL, EOMI. Vision is grossly intact. EARS: No gross deformities NOSE: No nasal discharge. THROAT: Oral cavity and pharynx normal. No inflammation, swelling, exudate, or lesions. Teeth and gingiva in good general condition. NECK: Neck supple, non-tender without lymphadenopathy, masses or thyromegaly. CARDIAC: Normal S1 and S2. No S3, S4 or murmurs. Rhythm is regular. There is no peripheral edema, cyanosis or pallor. Extremities are warm and well perfused. Capillary refill is less than 2 seconds. No carotid bruits. LUNGS: Clear to auscultation and percussion with the exception of slight wheezing noted on lung exam. Poor air movement in the setting of chronic disease. ABDOMEN: Positive bowel sounds. Soft, nondistended, nontender. No guarding or rebound. No masses. MUSKULOSKELETAL: Adequately aligned spine. ROM intact spine and extremities. No joint erythema or tenderness. BACK: Examination of the spine reveals normal gait and posture EXTREMITIES: No significant deformity or joint abnormality. No edema. Peripheral pulses intact. No varicosities. NEUROLOGICAL: CN II-XII intact. Strength and sensation symmetric and intact throughout. Reflexes 2+ throughout. PSYCHIATRIC: The mental examination revealed the patient was oriented to person, place, and time. - Constitutional Vitals: Temp Pulse Resp BP Pulse Ox 98.7 F 58 L 16 138/66 100 06/06/21 07:39 06/06/21 08:00 06/06/21 08:00 06/06/21 07:39 06/06/21 09:08 Plan Activity: fall precautions Weight Bearing Status: Weight Bear as Tolerated Diet: diabetic Durable Medical Equipment Needed Upon Discharge: Cane Plan of Treatment: Mr. James Laguerre. You were admitted for shortness of breath due to would be suspect to be COPD exacerbation. You were treated with antibiotics, steroids, nebulizers and were initially placed on supplemental oxygen. You do have an underlying history of emphysema so this complicated your clinical picture. However thankfully you recovered from this exacerbation. Your kidney function was also noted to be decreased on this admission. We consulted your cad developer Dr. Beckwith to come evaluate you. You were noted to have low potassium so we replaced this with an orals potassium supplement. Furthermore your blood pressure became difficult to control. We recommend discontinuation of your losartan due to your kidney function at this time and to resume it once okayed by your cad developer. We added additional blood pressure medications to maintain a normal blood pressure for you. We will be discharging you home with prescriptions for azithromycin, prednisone, additional blood pressure medication, potassium supplement and home nebulizers. Please follow-up with your primary care physician in 3 to 5 days.. Please follow-up with your cad developer Dr. Beckwith in 1 week. Please keep your appointment with your precision structural metal fitter tomorrow. It is important to meet with all these doctors so that you can optimally titrate your medications Follow up with: PRIMARY MD OMID [Primary Care Provider] - 7 Days PIERRE BECKWITH MD [Staff Physician] - 7 Days Prescriptions: Spironolactone [Aldactone] 25 mg PO QDAY 30 Days #30 tablet amLODIPine 5 mg PO DAILY 30 Days #30 tablet hydrALAZINE [Apresoline TAB] 25 mg PO Q8HR 30 Days #90 tablet Ipratropium (Nf) [Atrovent] 2 puff IH Q6HR 30 Days #1 inha Fluticasone/Vilanterol [Breo Ellipta 100-25 Mcg INH] 1 puff PO DAILY 30 Days #1 inh Doxazosin [Cardura] 2 mg PO QDAY 30 Days #30 tablet cloNIDine [Catapres] 0.1 mg PO BID 30 Days #60 predniSONE [Deltasone] 40 mg PO QDAY@0800 3 Days #3 tablet Potassium Chloride [K-Dur] 20 meq PO QDAY 30 Days #30 tablet Albuterol Sulfate [Proair Respiclick] 90 mcg IH QDAY PRN 30 Days #1 inh PRN Reason: Shortness Of Breath Azithromycin [Zithromax TAB] 250 mg PO QDAY 2 Days #2 tablet
[2021-06-06] MEDS ORDERED: SPIRONOLACTONE 25 MG TAB PO SCH (10:00)
[2021-06-06] MEDS ORDERED: NON-FORMULARY EACH (Simvastatin [Simvastatin] 20 MG Tablet) PO SCH (10:00)
[2021-06-06] MEDS ORDERED: FOLIC ACID 1 MG TAB PO SCH (10:00)
[2021-06-06 12:42] VITALS: BP 159/85
[2021-06-06] MEDS ORDERED: FAMOTIDINE 20 MG TAB PO SCH (13:00)
[2021-06-06] MEDS: AZITHROMYCIN 250 MG TAB PO SCH (13:55)
[2021-06-06] MEDS: DOXAZOSIN 1 MG TAB PO SCH (13:56)
[2021-06-06] MEDS: FOLIC ACID 1 MG TAB PO SCH (13:57)
[2021-06-06] MEDS: cloNIDine 0.1 MG TAB PO SCH (13:57)
[2021-06-06] MEDS: MULTIVITAMINS ,THERAPEUTIC TAB PO SCH (13:57)
[2021-06-06] MEDS: predniSONE 20 MG TAB PO SCH (13:58)
[2021-06-06] MEDS: amLODIPine 5 MG TAB PO SCH (13:58)
[2021-06-06] MEDS: HEPARIN 5,000 UNIT/1 ML VIAL SUB-Q SCH (13:59)
== END 2021-06-06 17:11 | disposition home or self-care (01) ==
LOC: ED 16:06 → 4A 21:33 → INTOOBSV 22:00 → OBSVTOIN 22:00 → 4A 06-05 07:01
PROVIDERS: ADMIT Hospitalist; ATTEND Internal Medicine
DX: J44.1 Chronic obstructive pulmonary disease with (acute) exacerbation (principal); N17.9 Acute kidney failure, unspecified; I16.0 Hypertensive urgency; I12.9 Hypertensive chronic kidney disease with stage 1 through stage 4 chronic kidney disease, or unspecified chronic kidney disease; N18.31 Chronic kidney disease, stage 3a; E11.65 Type 2 diabetes mellitus with hyperglycemia; E11.22 Type 2 diabetes mellitus with diabetic chronic kidney disease; I49.9 Cardiac arrhythmia, unspecified; N39.0 Urinary tract infection, site not specified; G43.909 Migraine, unspecified, not intractable, without status migrainosus; E87.6 Hypokalemia; E83.42 Hypomagnesemia; R53.81 Other malaise; E46 Unspecified protein-calorie malnutrition; Z68.27 Body mass index [BMI] 27.0-27.9, adult; Z87.442 Personal history of urinary calculi; Z86.711 Personal history of pulmonary embolism; Z79.899 Other long term (current) drug therapy; Z98.890 Other specified postprocedural states
CPT/HCPCS: 36415; 70450; 71045; 71250; 71275; 80048; 80053; 81001; 82140; 82550; 82962; 83735; 83930; 84443; 84484; 85025; 85379; 85610; 87040; 87086; 87641; 93005; 94640; 94644; 96365; 96366; 96367; 96368; 96372; 96375; 96376; 99285; A9270; G0378; J0360; J0696; J1644; J2405; J2930; J3475; J3480; J7040; J7120; J7512; Q9967; 85007; J1815

== ENCOUNTER 2022-03-08 06:41 | Day surgery (SDC) | payer OTHER ==
[~2022-03-08 06:41] MED LIST: MIDAZOLAM 2 MG/2 ML INJ IV NR; SODIUM CHLORIDE 0.9% 1000 ML 1,000 ML IV SCH; ceFAZolin/STERILE WATER 2 GM/20 ML SYRINGE IV NR; fentaNYL 100 MCG/2 ML INJ IV PRN
--- NOTE | 2022-03-08 08:01 | Anesthesia Consultation ---
Anesthesia Consult and Med Hx Date of service: 03/08/22 - Airway Anesthetic Teeth Evaluation: Edentulous (1 remaining tooth) Mental/Hyoid Distance: Adequate Mallampati Class: Class III Intubation Access Assessment: Possibly Difficult - Pre-Operative Health Status ASA Pre-Surgery Classification: ASA4 Proposed Anesthetic Plan: MAC - Pulmonary Hx Smoking: Yes (quit 40yrs ago) Hx Respiratory Symptoms: No SOB: Yes (chronic, stable WHITT) COPD: Yes (used breo inhaler this morning) Home Oxygen Therapy: No - Cardiovascular System Hx Hypertension: Yes (took amlodipine and metoprolol this morning) Hx Heart Attack/AMI: No Hx Percutaneous Transluminal Coronary Angioplasty (PTCA): No Hx Cardia Arrhythmia: No Hx Pacemaker: No Hx Internal Defibrillator: No - Central Nervous System CVA: No Hx Back Pain: Yes Hx Psychiatric Problems: Yes (depression) - Gastrointestinal Hx Ulcer: Yes (PUD) Hx Gastroesophageal Reflux Disease: Yes (diet controlled) - Endocrine Hx End Stage Renal Disease: Yes (last HD 03/07/22) Hx Liver Disease: No Hx Non-Insulin Dependent Diabetes: Yes Hx Thyroid Disease: No - Hematic Hx Anemia: Yes - Additional Comments Anesthesia Medical History Comments: No hx anesthetic complications. CHF mentioned in chart review patient/POA deny and no cardiac studies other than EKG in the chart. No signs/symptoms acute decompensation today. Niece/POA provided most medical history and signed anesthesia consent.
--- NOTE | 2022-03-08 08:04 | Anesthesia Day of Surgery ---
Anesthesia Day of Surgery - Day of Surgery Patient Examined: Yes Patient H&P Reviewed: Yes Patient is NPO: Yes Beta Blockers: Yes (metoprolol today AM)
[2022-03-08 08:20] LABS: Hematocrit 37.7 % (35.5-45.6); Hemoglobin 12.3 gm/dl (11.8-15.2); Mean Corpuscular HGB Conc 33 % (32-34); Mean Corpuscular Volume 87 fl (84-94); Platelet Count 162 K/mm3 (140-440); Red Blood Count 4.34 M/mm3 (3.65-5.03); Red Cell Distribution Width 15.7 % (13.2-15.2)
[2022-03-08] MEDS ORDERED: HEPARIN 10,000 UNITS/10 ML VIAL ONE (08:20)
[2022-03-08] MEDS ORDERED: LIDOCAINE (1%) 10 MG/1 ML VIAL 20 ML MDV ONE (08:20)
[2022-03-08] MEDS ORDERED: rifAMPin 600 MG VIAL ONE (08:20)
[2022-03-08] MEDS ORDERED: BUPIVACAINE/PF (0.5%) 5 MG/1 ML 30 ML VIAL INFILTRATI ONE ×2 (08:20→09:58)
[2022-03-08] MEDS ORDERED: SODIUM CHLORIDE 0.9% 500 ML 500 ML ONE (08:21)
[2022-03-08] MEDS ORDERED: SODIUM CHLORIDE 0.9% 250ML 250 ML ONE (08:21)
[2022-03-08] MEDS ORDERED: BUPIVACAINE/PF (0.25%) 2.5 MG/ML 30 ML VIAL INFILTRATI ONE (09:04)
[2022-03-08] MEDS ORDERED: POTASSIUM CHLORIDE 20 MEQ 20 MEQ/100 ML BAG IV ONE (09:30)
[2022-03-08] MEDS ORDERED: propofoL 200 MG/20 ML VIAL IV ONE (09:46)
[2022-03-08] MEDS ORDERED: SODIUM CHLORIDE 0.9% 250 ML IVPB IV ONE (09:58)
[2022-03-08] MEDS ORDERED: HEPARIN 10,000 UNITS/10 ML VIAL IV ONE (09:58)
[2022-03-08] MEDS ORDERED: rifAMPin 600 MG VIAL IV ONE (09:58)
[2022-03-08] MEDS ORDERED: SODIUM CHLORIDE 0.9% IRR 500 ML BOTTLE IR ONE (09:58)
[2022-03-08] MEDS ORDERED: HEPARIN 10,000 UNIT/1 ML VIAL IV SCH (10:00)
--- NOTE | 2022-03-08 10:50 | Short Stay Summary ---
Short Stay Documentation Date of service: 03/08/22 Narrative H&P: See H&P - History H&P: obtained from office - Allergies and Medications Current Medications: Allergies ibuprofen Allergy (Verified 03/05/22 10:42) Hives nitroglycerin [From Nitro-Dur] Allergy (Verified 03/05/22 10:42) Rash Home Medications Medication Instructions Recorded Confirmed Last Taken Type Fluticasone/Vilanterol [Breo 1 puff PO DAILY 30 Days #1 inh 06/06/21 03/05/22 Unknown Rx Ellipta 100-25 Mcg INH] Ipratropium (Nf) [Atrovent HFA 2 puff IH Q6HR 30 Days #1 inha 06/06/21 03/05/22 Unknown Rx 17MCG/PUFF] amLODIPine 5 mg PO DAILY 30 Days #30 tablet 06/06/21 03/05/22 Unknown Rx Albuterol Sulfate [Proair 90 mcg IH PRN PRN 03/05/22 03/05/22 Unknown History Respiclick] Metoprolol [Lopressor] 12.5 mg PO BID 03/05/22 03/05/22 Unknown History Mirtazapine 7.5 mg PO DAILY 03/05/22 03/05/22 Unknown History Multivit-Min/FA/Lycopen/Lutein 1 each PO DAILY 03/05/22 03/05/22 Unknown History [Centrum Silver Men Tablet] Omeprazole 20 mg PO DAILY 03/05/22 03/05/22 Unknown History megestroL [Megace] 20 mg PO DAILY 03/05/22 03/05/22 Unknown History Active Medications Cefazolin Sodium (Cefazolin/Sterile Water 2 Gm/20 Ml Syringe) 2 gm IV PREOP NR Stop: 03/08/22 20:00 Fentanyl (Fentanyl 100 Mcg/2 Ml Inj) 100 mcg IV ONCE PRN PRN Reason: sedation for nerve block Heparin Sodium (Porcine) (Heparin 10,000 Unit/1 Ml Vial) 5,000 unit IV ONCE@1000 NITESH Stop: 03/08/22 15:00 Sodium Chloride (Nacl 0.9% 1000 Ml) 1,000 mls @ 42 mls/hr IV DIRECT NITESH Stop: 03/08/22 23:59 Midazolam HCl (Midazolam 2 Mg/2 Ml Inj) 2 mg IV PREOP NR Stop: 03/08/22 23:59 - Brief post op/procedure progress note Date of procedure: 03/08/22 Pre-op diagnosis: End-Stage Renal Disease Post-op diagnosis: same Procedure: Creation of Left Brachial Artery to Left Axillary Vein Arteriovenous Graft with 5 mm Bovine Artegraft Anesthesia: MAC, regional Surgeon: SHEYLA SIBLEY Estimated blood loss: minimal Pathology: none Condition: stable - Disposition Condition at discharge: Good Disposition: 01 HOME / SELF CARE / HOMELESS Short Stay Discharge Plan Activity: other (No heavy lifting with left arm for 2 weeks.) Wound: open to air, keep clean and dry, other (Okay to wash the left arm incisions with soap and water but do not soak in water for 2 weeks.) Follow up with: SHEYLA SIBLEY MD [Staff Physician] - 14 Days Prescriptions: HYDROcodone/APAP 5-325 [[place] 5/325] 1 each PO Q4HR PRN #30 tablet PRN Reason: Pain
--- NOTE | 2022-03-08 10:51 | Operative Report ---
Operative Report Operative Report: Date of procedure: 03/08/2022 Pre-operative diagnosis: End-Stage Renal Disease Post-operative diagnosis: Same Procedure(s): 1. Creation of Left Brachial Artery to Axillary Vein AV Graft with 5 mm Bovine Graft Artergraft Surgeon: Gee Weiner MD Machine Cementer And Folder: None Anesthesia: Regional/MAC EBL: Minimal Counts: Correct Complications: None Condition: Stable Findings: Successful Creation of Left Arm AV Graft with Palpable Thrill and Palpable Radial Pulse at the Completion of the Case. Specimen: None Indication: The patient is an 86-year-old male with a history of end-stage renal disease who is currently on hemodialysis through a right internal jugular permacath. He is in need of permanent dialysis access and requires creation of an arteriovenous graft. He was given the risk, benefits, and alternative procedures and consented to the procedure. Description of Procedure: Prior to being transported to the operating room the patient had a regional block of the left arm performed. After the block was performed the patient was transported to the operating room and adequately sedated. The patient's left arm was then prepped and draped in normal sterile fashion. A longitudinal incision was made on the medial aspect of the arm just proximal to the antecubital crease and carried down to the brachial artery using sharp dissection. The brachial artery was dissected out circumferentially both proximally and distally and controlled with vessel loops. A second incision was created in longitudinal fashion on the medial aspect of the arm just distal to the axillary crease and carried down to the axillary vein using sharp dissection. Axillary vein was dissected out circumferentially and controlled with a vessel loop. I then used a Priscilla-Wick tunneler to tunnel from the brachial artery incision to the axillary vein incision and then pulled an 5 mm bovine through the tunnel. I infused with heparinized saline to ensure that it was not twisted or kinked. I put the brachial artery vessel loops on tension controlling the flow and then created an arteriotomy using an 11 blade and Chu scissors. I beveled the graft and created an end-to-side anastomosis using 6-0 Prolene running fashion. I clamped the graft just proximal to the anastomosis and then released the vessel loops restoring flow in the brachial artery. I placed quick clot in incision to achieve hemostasis. I cut the proximal end of the graft to the appropriate length and beveled the graft in preparation for a venous anastomosis. I controlled the axillary vein a Satinsky clamp and created a venotomy using an 11 blade and Chu scissors. I created an end to side anastomosis using a 6-0 Prolene in running fashion. Prior to completing the anastomosis I flushed the graft to ensure there was no thrombus and then completed the anastamosis. I released all clamps allowing flow into the AV graft which had an excellent thrill. I packed the wound with quick clot to achieve hemostasis. I closed both wounds in 2 layers using 3-0 Vicryl in running fashion in the deep dermal layer and 4-0 Monocryl in running fashion the subcuticular layer. I dressed both wounds with Dermabond. The patient tolerated the procedure well all sponge, needle, and instrument counts were correct. The patient was taken to recovery in stable condition.
[2022-03-08 11:45] VITALS: BP 139/64
--- NOTE | 2022-03-08 12:49 | Post Anesthesia Evaluation ---
- Post Anesthesia Evaluation Patient Participated: Yes Airway Patent: Yes Stable Respiratory Function: Yes Nausea/Vomiting: No Temp > 96.8F: Yes Pain Manageable: Yes Adequeate Hydration: Yes Anesthesia Complications: No
== END 2022-03-08 06:42 | disposition home or self-care (01) ==
LOC: OR 06:41
PROVIDERS: ATTEND Surgery Vascular Surgery
DX: I13.2 Hypertensive heart and chronic kidney disease with heart failure and with stage 5 chronic kidney disease, or end stage renal disease (principal); I50.9 Heart failure, unspecified; E11.22 Type 2 diabetes mellitus with diabetic chronic kidney disease; N18.6 End stage renal disease; H40.9 Unspecified glaucoma; G43.909 Migraine, unspecified, not intractable, without status migrainosus; E78.00 Pure hypercholesterolemia, unspecified; I48.91 Unspecified atrial fibrillation; J43.9 Emphysema, unspecified; Z86.711 Personal history of pulmonary embolism; K21.9 Gastro-esophageal reflux disease without esophagitis; Z85.46 Personal history of malignant neoplasm of prostate; Z87.440 Personal history of urinary (tract) infections; M19.90 Unspecified osteoarthritis, unspecified site; F32.9 Major depressive disorder, single episode, unspecified; Z87.891 Personal history of nicotine dependence; Z98.890 Other specified postprocedural states; Z83.3 Family history of diabetes mellitus; Z82.49 Family history of ischemic heart disease and other diseases of the circulatory system
CPT/HCPCS: 36415; 36830; 64415; 80048; 82962; 83735; 85027; C1768; J0690; J1644; J2250; J2704; J3010; J3480; J3490; J7030; J7040; J7050; 64450

== ENCOUNTER 2022-04-22 06:49 | Observation (INO) | payer OTHER ==
--- NOTE | 2022-04-03 15:57 | Anesthesia Consultation ---
Anesthesia Consult and Med Hx Date of service: 04/10/22 - Airway Anesthetic Teeth Evaluation: Poor (multiple missing teeth, none loose) ROM Head & Neck: Adequate (mild restricted extension) Mental/Hyoid Distance: Adequate Mallampati Class: Class III Intubation Access Assessment: Possibly Difficult - Pulmonary Exam CTA: Yes - Cardiac Exam Cardiac Exam: RRR - Pre-Operative Health Status ASA Pre-Surgery Classification: ASA4 Proposed Anesthetic Plan: General - Pulmonary Hx Smoking: Yes (quit 40yrs ago) Hx Asthma: Yes Hx Respiratory Symptoms: Yes (chronic, stable WHITT) COPD: Yes (albuterol typically 1x/day; recently started on albuterol) Home Oxygen Therapy: No (previously on home O2 but self d/c'd >1yr ago; normal RA SpO2 in PAT) Hx Sleep Apnea: No (TRAVON PRE SCREEN HIGH RISK) - Cardiovascular System Hx Hypertension: Yes Hx Heart Attack/AMI: No (negative ST 2 yrs ago per cardiology note, most recent EF 40-45% in 2020) Hx Percutaneous Transluminal Coronary Angioplasty (PTCA): No - Central Nervous System CVA: No Hx Psychiatric Problems: Yes (depression) - Gastrointestinal Hx Ulcer: Yes (PUD) - Endocrine Hx End Stage Renal Disease: Yes (HD TTS) Hx Liver Disease: No Hx Non-Insulin Dependent Diabetes: Yes (diet controlled) Hx Thyroid Disease: No - Other Systems Hx Cancer: Yes (hx prostate ca s/p prostatectomy) - Additional Comments Anesthesia Medical History Comments: No hx anesthetic complications. Preop cardiology evaluation and most recent pulmonology notes on chart reviewed. Discussed with patient and NOK risk of post op respiratory complications including possible prolonged PACU stay and/or possibility of overnight/ICU admission for supplemental O2. Verbalized understanding. COVID test done in PAT resulted positive; surgeon and patient to be informed. Recommend delaying surgery if possible given increased risk of post op pulmonary complications in COVID positive patient with multiple comorbid conditions.
[~2022-04-22 06:49] MED LIST changes: -MIDAZOLAM 2 MG/2 ML INJ IV NR; -SODIUM CHLORIDE 0.9% 1000 ML 1,000 ML IV SCH; -ceFAZolin/STERILE WATER 2 GM/20 ML SYRINGE IV NR; +ceFAZolin/Water 2 GM/20 ML 2 GM/20 ML SYRINGE IV NR; -fentaNYL 100 MCG/2 ML INJ IV PRN
[2022-04-22 08:12] LABS: Hematocrit 40.3 % (35.5-45.6); Hemoglobin 12.9 gm/dl (11.8-15.2); Mean Corpuscular HGB Conc 32 % (32-34); Mean Corpuscular Volume 87 fl (84-94); Platelet Count 203 K/mm3 (140-440); Red Blood Count 4.65 M/mm3 (3.65-5.03); Red Cell Distribution Width 16.8 % (13.2-15.2)
[2022-04-22 08:33] LABS: Calcium 9.2 mg/dL (8.4-10.2)
[2022-04-22] MEDS ORDERED: HYDROmorphone 0.5 MG/0.5 ML INJ IV PRN ×2 (08:58→09:30)
--- NOTE | 2022-04-22 08:58 | Anesthesia Day of Surgery ---
Anesthesia Day of Surgery - Day of Surgery Patient Examined: Yes Patient H&P Reviewed: Yes Patient is NPO: Yes
[2022-04-22] MEDS ORDERED: ONDANSETRON 4 MG/2 ML INJ IV PRN ×2 (09:30→12:00)
[2022-04-22] MEDS ORDERED: ceFAZolin/STERILE WATER 2 GM/20 ML SYRINGE IV NR (10:00)
[2022-04-22] MEDS ORDERED: LIDOCAINE PF 100 MG/5 ML (CARDIAC SYRINGE) IV ONE (10:13)
[2022-04-22] MEDS ORDERED: propofoL 200 MG/20 ML VIAL IV ONE (10:14)
[2022-04-22] MEDS ORDERED: fentaNYL 100 MCG/2 ML INJ ONE (10:14)
[2022-04-22] MEDS ORDERED: MIDAZOLAM 2 MG/2 ML INJ ONE (10:14)
[2022-04-22] MEDS ORDERED: ceFAZolin/Water 2 GM/20 ML 2 GM/20 ML SYRINGE IV ONE (10:24)
[2022-04-22] MEDS ORDERED: MANNITOL/SORBITOL SOLUTION 3,000 ML IRRIG.SOLN IR ONE (11:00)
[2022-04-22] MEDS ORDERED: HYDROcodone/ACETAMINOPHEN 5-325 MG TAB PO PRN (11:35)
[2022-04-22] MEDS ORDERED: MORPHINE 4 MG/1 ML INJ IV PRN (11:35)
[2022-04-22] MEDS ORDERED: ACETAMINOPHEN 325 MG TAB PO PRN (11:35)
[2022-04-22] MEDS ORDERED: NALOXONE 0.4 MG/1 ML INJ IV PRN (11:35)
--- NOTE | 2022-04-22 11:35 | Short Stay Summary ---
Short Stay Documentation Date of service: 04/22/22 - History H&P: obtained from office - Allergies and Medications Current Medications: Allergies aspirin Allergy (Verified 04/22/22 08:26) Unknown ibuprofen Allergy (Verified 03/05/22 10:42) Hives nitroglycerin [From Nitro-Dur] Allergy (Verified 04/01/22 16:59) Rash , VOMITING Home Medications Medication Instructions Recorded Confirmed Last Taken Type Fluticasone/Vilanterol [Breo 1 puff PO DAILY 30 Days #1 inh 06/06/21 04/22/22 04/22/22 05:00 Rx Ellipta 100-25 Mcg INH] amLODIPine 5 mg PO DAILY 30 Days #30 tablet 06/06/21 04/22/22 04/22/22 05:00 Rx Albuterol Sulfate [Proair 90 mcg IH PRN PRN 03/05/22 04/01/22 Unknown History Respiclick] Metoprolol [Lopressor TAB] 12.5 mg PO BID 03/05/22 04/22/22 04/22/22 05:00 History Mirtazapine 7.5 mg PO DAILY 03/05/22 04/22/22 04/21/22 09:00 History Multivit-Min/FA/Lycopen/Lutein 1 each PO DAILY 03/05/22 04/22/22 04/21/22 09:00 History [Centrum Silver Men Tablet] Omeprazole 20 mg PO DAILY 03/05/22 04/22/22 04/22/22 05:00 History megestroL [Megestrol] 20 mg PO DAILY 03/05/22 04/22/22 04/21/22 09:00 History Active Medications Cefazolin Sodium (Cefazolin/Sterile Water 2 Gm/20 Ml Syringe) 2 gm IV PREOP NR Stop: 04/22/22 18:00 Hydromorphone HCl (Hydromorphone 0.5 Mg/0.5 Ml Inj) 0.25 mg IV Q10MIN PRN PRN Reason: Pain, Moderate (4-6) Stop: 04/22/22 22:00 Hydromorphone HCl (Hydromorphone 0.5 Mg/0.5 Ml Inj) 0.5 mg IV Q10MIN PRN PRN Reason: Pain , Severe (7-10) Stop: 04/22/22 22:00 Ondansetron HCl (Ondansetron 4 Mg/2 Ml Inj) 4 mg IV ONCE PRN PRN Reason: Nausea And Vomiting Stop: 04/22/22 12:00 - Brief post op/procedure progress note Date of procedure: 04/22/22 Pre-op diagnosis: BPH, RETENTION, URETHRAL EROSION Post-op diagnosis: same Procedure: CYSTO, TURP, SPT Anesthesia: GETA Surgeon: SCOT STRICKLAND Estimated blood loss: minimal Pathology: list (PROSTATE CHIPS) Specimen disposition: to lab Condition: stable - Hospital course Hospital course: BACTRIM, NORCO, ULTRAM ON CHART pal clear----clamped spt - Disposition Condition at discharge: Stable Short Stay Discharge Plan Follow up with: KATHERINE QUEEN [Other] - 7 Days
[2022-04-22] MEDS ORDERED: NON-FORMULARY EACH (Albuterol Sulfate [Proair Respiclick] 90 MCG Aer.Pow.Ba) IH PRN (11:40)
[2022-04-22] MEDS ORDERED: PHENYLEPHRINE/NS 1,000 MCG/10 ML SYRINGE (OR USE) IV ONE (11:43)
[2022-04-22] MEDS ORDERED: dexAMETHasone 20 MG/5 ML VIAL ONE (11:43)
[2022-04-22] MEDS ORDERED: ONDANSETRON 4 MG/2 ML INJ ONE (11:43)
--- NOTE | 2022-04-22 11:47 | Operative Report ---
DATE OF SURGERY: 04/22/2022 PREOPERATIVE DIAGNOSES: Benign prostatic hypertrophy, urinary retention, urethral erosion. POSTOPERATIVE DIAGNOSES: Benign prostatic hypertrophy, urinary retention, urethral erosion. PROCEDURES: Cystoscopy, bilateral retrograde pyelograms, suprapubic catheter placement (18-St Helenian), transurethral resection of the prostate. SURGEON: Grant Ruano MD ANESTHESIA: General. ESTIMATED BLOOD LOSS: Minimal. FLUIDS: Crystalloid. COMPLICATIONS: No complications. INDICATIONS: This patient is an 86-year-old gentleman known to our service for several years diagnosis of BPH. He was lost to followup. Last seen 2013 and he was presented earlier this year after he was admitted to the [facility]. Now, he uses a wheelchair for ambulation, he was in urinary retention. A voiding trial was unsuccessful despite alpha blockers. Urodynamic testing, he was unable to void. We discussed options in addition to him having a urethral erosion felt it was prudent to proceed with cystoscopy, TURP, suprapubic catheter placement just in case he cannot urinate postoperatively. Risks, benefits, complications were explained to the patient, his niece and his daughter. DESCRIPTION OF PROCEDURE: The patient was taken to the operative suite, placed in a supine position. After adequate general anesthesia, placed in the dorsal lithotomy position, prepped and draped in a sterile fashion. Pancystourethroscopy was performed with a 22-St Helenian Storz cystoscope. The patient did have a urethral erosion approximately 1 inch in length. No other abnormalities. Prostate had a high riding bladder neck with some mild lateral lobes. Bladder, no tumors or stones were noted. Mild trabeculation. Both ureteral orifices in normal position. Bilateral retrograde pyelograms were obtained with an 8-St Helenian Endy catheter and 8 mL of contrast. No filling defects or obstruction. Next, using a curved Lowsley retractor it was placed in the urethra and tented the abdominal wall, 1 cm cephalad to pubic symphysis 1 cm Bovie incision was made through the muscular layers. A retractor was brought out anteriorly tied to an 18-St Helenian catheter and pulled into the urethra and then the scope was advanced back to allow adequate placement of the balloon in the bladder, 10 mL sterile water was in the balloon. The catheter was secured in the abdomen with a 2-0 silk and clamped. Next, using a 24-St Helenian resectoscope and loop with cutting and coag on 180 and 80, transurethral resection of the prostate was performed, taken mainly the bladder neck and lateral lobes. Chips were evacuated out with the Netlog evacuator. The patient tolerated the procedure well. A 22-St Helenian Mirza catheter was placed, Buitrago drip going in. An 18-St Helenian catheter going out with a 22-St Helenian catheter. Rectal exam was benign. The patient tolerated the procedure well. TID: [id number] RECEIPT: [id number] [facility]
--- NOTE | 2022-04-22 11:54 | Fluoroscopy Report ---
FLUOROSCOPY RETROGRADE UROGRAPHY INDICATION: ENLARGED PROSTATE. COMPARISON: None. IMPRESSION: 0.2 minutes of fluoroscopy time was provided by radiology during retrograde urography by the urologist. 4 fluoroscopic images are presented. No filling defect or abnormal dilatation is det ected. Please correlate with the procedural report. Signer Name: Bon Demarco Jr, MD Signed: 04/22/2022 11:50 AM Workstation Name: [id number]
[2022-04-22] MEDS ORDERED: ALBUTEROL 2.5 MG/3 ML NEBU IH PRN (12:03)
[2022-04-22] MEDS ORDERED: SODIUM CHLORIDE 0.9% 1000 ML 1,000 ML IV SCH (13:00)
--- NOTE | 2022-04-22 15:39 | Post Anesthesia Evaluation ---
- Post Anesthesia Evaluation Patient Participated: Yes Airway Patent: Yes Stable Respiratory Function: Yes Nausea/Vomiting: No Temp > 96.8F: Yes Pain Manageable: Yes Adequeate Hydration: Yes Anesthesia Complications: No Block Receding Appropriately: Not Applicable Patient on Ventilator: No
[2022-04-22] MEDS ORDERED: ARFORMOTEROL 15 MCG/2 ML NEBU IH SCH (20:00)
[2022-04-22] MEDS ORDERED: BUDESONIDE 0.5 MG/2 ML NEBU IH SCH (20:00)
[2022-04-22] MEDS: ceFAZolin/NS 1 GM/50 ML 1 GM/50 ML BAG IV SCH (20:30)
--- NOTE | 2022-04-22 20:53 | Consultation ---
History of Present Illness - Reason for Consult Consult date: 04/22/22 Medical management Requesting physician: SCOT RUANO - History of Present Illness 86 YO Male with HTN, DM, CaP S/P TURP, HLD, CKD, Malnutrition, Dementia, Debility. Consult placed by Dr. Ruano for medical management. Patient resting comfortably in bed. No reported nursing events. Patient denies pain. No reports of fever, chills, chest pain, palpitation, productive cough, skin rash, recent contact, known exposure to COVID-19. Past History Past Medical History: cancer, COPD, diabetes, heart failure, hypertension, migraines Past Surgical History: hernia repair, Other (Prostate surgery) Social history: , lives with family. denies: smoking, alcohol abuse, prescription drug abuse Family history: hypertension Past History Past Medical History: diabetes, hypertension, other (See HPI) Past Surgical History: hernia repair, Other (Prostate surgery) Social history: , lives with family Family history: diabetes, hypertension Medications and Allergies Allergies Allergy/AdvReac Type Severity Reaction Status Date / Time aspirin Allergy Unknown Verified 04/22/22 08:26 ibuprofen Allergy Hives Verified 03/05/22 10:42 nitroglycerin Allergy Rash , Verified 04/01/22 16:59 [From Nitro-Dur] VOMITING Home Medications Medication Instructions Recorded Confirmed Last Taken Type Fluticasone/Vilanterol [Breo 1 puff PO DAILY 30 Days #1 inh 06/06/21 04/22/22 04/22/22 05:00 Rx Ellipta 100-25 Mcg INH] amLODIPine 5 mg PO DAILY 30 Days #30 tablet 06/06/21 04/22/22 04/22/22 05:00 Rx Albuterol Sulfate [Proair 90 mcg IH PRN PRN 03/05/22 04/01/22 Unknown History Respiclick] Metoprolol [Lopressor TAB] 12.5 mg PO BID 03/05/22 04/22/22 04/22/22 05:00 History Mirtazapine 7.5 mg PO DAILY 03/05/22 04/22/22 04/21/22 09:00 History Multivit-Min/FA/Lycopen/Lutein 1 each PO DAILY 03/05/22 04/22/22 04/21/22 09:00 History [Centrum Silver Men Tablet] Omeprazole 20 mg PO DAILY 03/05/22 04/22/22 04/22/22 05:00 History megestroL [Megestrol] 20 mg PO DAILY 03/05/22 04/22/22 04/21/22 09:00 History Active Meds: Active Medications Acetaminophen (Acetaminophen 325 Mg Tab) 650 mg PO Q4H PRN PRN Reason: Pain, Mild (1-3)/Fever > 100.5 Hydrocodone Bitart/Acetaminophen (Hydrocodone/Acetaminophen 5-325 Mg Tab) 2 each PO Q4H PRN PRN Reason: Pain, Moderate (4-6) Albuterol (Albuterol 2.5 Mg/3 Ml Nebu) 2.5 mg IH Q4HRT PRN PRN Reason: Shortness Of Breath Amlodipine Besylate (Amlodipine 5 Mg Tab) 5 mg PO DAILY [facility] Arformoterol Tartrate (Arformoterol 15 Mcg/2 Ml Nebu) 15 mcg IH Q12HRT [facility] Budesonide (Budesonide 0.5 Mg/2 Ml Nebu) 0.5 mg IH Q12HRT [facility] Hydromorphone HCl (Hydromorphone 0.5 Mg/0.5 Ml Inj) 0.25 mg IV Q10MIN PRN PRN Reason: Pain, Moderate (4-6) Stop: 04/22/22 22:00 Hydromorphone HCl (Hydromorphone 0.5 Mg/0.5 Ml Inj) 0.5 mg IV Q10MIN PRN PRN Reason: Pain , Severe (7-10) Stop: 04/22/22 22:00 Cefazolin Sodium (Ancef/Ns 1 Gm/50 Ml) 1 gm in 50 mls @ 100 mls/hr IV Q8H [facility]ITESH; Protocol Stop: 04/23/22 02:29 Sodium Chloride (Nacl 0.9% 1000 Ml) 1,000 mls @ 42 mls/hr IV DIRECT [facility] Megestrol Acetate (Megestrol 20 Mg Tab) 20 mg PO DAILY [facility] Metoprolol Tartrate (Metoprolol Tartrate 25 Mg Tab) 12.5 mg PO BID [facility] Mirtazapine (Mirtazapine 15 Mg Tab) 7.5 mg PO QHS [facility] Morphine Sulfate (Morphine 4 Mg/1 Ml Inj) 4 mg IV Q4H PRN PRN Reason: Pain , Severe (7-10) Naloxone HCl (Naloxone 0.4 Mg/1 Ml Inj) 0.1 mg IV Q2MIN PRN PRN Reason: Res Rate </= 8 or 02 SAT < 92% Ondansetron HCl (Ondansetron 4 Mg/2 Ml Inj) 4 mg IV Q8H PRN PRN Reason: Nausea And Vomiting Pantoprazole Sodium (Pantoprazole 20 Mg Tab) 20 mg PO QDAY [facility] Review of Systems Constitutional: no weight loss, no weight gain, no chills, no sweats Ears, nose, mouth and throat: no ear discharge, no tinnitis, no nose pain, no nasal congestion, no nasal discharge Cardiovascular: no chest pain, no palpitations, no lightheadedness Respiratory: no cough, no excessive sputum, no shortness of breath, no dyspnea on exertion Gastrointestinal: no vomiting, no constipation, no hematemesis Genitourinary Male: no flank pain, no discharge, no nocturia, no erectile dysfunction Rectal: no pain Musculoskeletal: no arm numbness/tingling, no low back pain Integumentary: no rash, no sores Neurological: no head injury, no weakness, no tingling, no syncope Psychiatric: no anxiety, no change in sleep habits, no sleep disturbances, no change in appetite, no disorientation Endocrine: no cold intolerance, no heat intolerance Hematologic/Lymphatic: no easy bruising Allergic/Immunologic: no urticaria, no wheezing Exam - Constitutional Vitals: Temp Pulse Resp BP Pulse Ox 97.7 F 94 H 23 109/66 99 04/22/22 15:45 04/22/22 19:00 04/22/22 19:00 04/22/22 19:00 04/22/22 19:00 General appearance: Present: no acute distress, cachectic - EENT Eyes: Present: PERRL ENT: hearing intact, clear oral mucosa - Neck Neck: Present: supple, normal ROM - Respiratory Respiratory effort: normal Respiratory: bilateral: CTA - Cardiovascular Heart Sounds: Present: S1 & S2. Absent: rub, click - Extremities Extremities: pulses symmetrical, No edema Peripheral Pulses: within normal limits - Abdominal General gastrointestinal: Present: soft, non-tender, non-distended, normal bowel sounds Male genitourinary: Present: normal - Integumentary Integumentary: Present: clear, warm, dry - Musculoskeletal Musculoskeletal: gait normal, strength equal bilaterally - Psychiatric Psychiatric: appropriate mood/affect, intact judgment & insight - Neurologic Neurologic: CNII-XII intact, moves all extremities Results - Labs CBC & Chem 7: 04/22/22 07:45 04/22/22 07:45 Labs: Abnormal lab results 04/22/22 04/22/22 04/22/22 Range/Units 07:45 07:45 07:57 RDW 16.8 H (13.2-15.2) % Potassium 3.1 L (3.6-5.0) mmol/L BUN 42 H (9-20) mg/dL Creatinine 5.1 H (0.8-1.3) mg/dL Glucose 124 H (75-100) mg/dL POC Glucose 113 H (70-105) mg/dL 04/22/22 04/22/22 Range/Units 11:37 16:46 RDW (13.2-15.2) % Potassium (3.6-5.0) mmol/L BUN (9-20) mg/dL Creatinine (0.8-1.3) mg/dL Glucose (75-100) mg/dL POC Glucose 116 H 121 H (70-105) mg/dL Assessment and Plan - Patient Problems (1) Hypertension Current Visit: Yes Status: Acute Qualifiers: Hypertension type: primary hypertension Qualified Code(s): I10 - Essential (primary) hypertension Plan to address problem: Monitor blood pressure every shift, continue medical management. (2) Diabetes Current Visit: Yes Status: Acute Plan to address problem: Consistent carbohydrate diet, Accu-Chek, continue current therapy. (3) Malnutrition Current Visit: Yes Status: Acute Qualifiers: Protein-calorie malnutrition severity: moderate Plan to address problem: Increase protein intake, dietary supplementation. (4) GERD (gastroesophageal reflux disease) Current Visit: Yes Status: Acute Qualifiers: Esophagitis presence: without esophagitis Qualified Code(s): K21.9 - Gastro-esophageal reflux disease without esophagitis Plan to address problem: PPI therapy, supportive care. (5) Advance care planning Current Visit: Yes Status: Acute Plan to address problem: Disease education done, care plan discussed, diagnoses discussed, prognosis discussed, patient is full code. Patient and family acknowledge understanding agreement with care plan, +30 minutes. (6) Preventative health care Current Visit: Yes Status: Acute Plan to address problem: Patient counseled regarding home safety, risk factor reduction, outpatient follow-up with primary care physician for age and risk factor appropriate screening test. +30 minutes.
[2022-04-22] MEDS ORDERED: MIRTAZAPINE 15 MG TAB PO SCH (22:00)
[2022-04-22] MEDS: METOPROLOL TARTRATE 25 MG TAB PO SCH (22:46)
[2022-04-23] MEDS: ceFAZolin/NS 1 GM/50 ML 1 GM/50 ML BAG IV SCH (02:57)
[2022-04-23] MEDS: SODIUM CHLORIDE 0.9% IRRIG SOLN 2000 ML IR SCH ×2 (03:04→06:44)
[2022-04-23] MEDS ORDERED: ceFAZolin/NS 1 GM/50 ML 1 GM/50 ML BAG IV SCH (03:10)
[2022-04-23] MEDS ORDERED: BUDESONIDE 0.5 MG/2 ML NEBU IH SCH (08:00)
[2022-04-23] MEDS ORDERED: ARFORMOTEROL 15 MCG/2 ML NEBU IH SCH (08:00)
[2022-04-23] MEDS ORDERED: NON-FORMULARY EACH (Mirtazapine [Mirtazapine] 7.5 MG Tablet) PO SCH (10:00)
[2022-04-23] MEDS ORDERED: amLODIPine 5 MG TAB PO SCH (10:00)
[2022-04-23] MEDS ORDERED: PANTOPRAZOLE 20 MG TAB PO SCH (10:00)
[2022-04-23] MEDS ORDERED: NON-FORMULARY EACH (Fluticasone/Vilanterol [Breo Ellipta 100-25 Mcg Inh] 1 EACH Blst.W.Dev PO SCH (10:00)
[2022-04-23] MEDS ORDERED: MEGESTROL 20 MG TAB PO SCH (10:00)
[2022-04-23] MEDS ORDERED: NON-FORMULARY EACH (Omeprazole [Omeprazole] 20 MG Tablet.Dr) PO SCH (10:00)
[2022-04-23] MEDS: METOPROLOL TARTRATE 25 MG TAB PO SCH (10:36)
[2022-04-23 11:46] LABS: Calcium 8.1 mg/dL (8.4-10.2)
[2022-04-23] MEDS ORDERED: SODIUM CHLORIDE 0.9% 100 ML IV PRN (11:46)
--- NOTE | 2022-04-23 11:59 | Consultation ---
History of Present Illness - Reason for Consult Consult date: 04/23/22 end stage renal disease - History of Present Illness 86yr M with h/o ESRD on HD at [facility] TTS, ?N ephrologist, s/p procedure for BPH & Urinary retention - Suprapubic Cath & Mirza Cath in place Past History Past Medical History: diabetes, hypertension, other (See HPI) Past Surgical History: hernia repair, Other (Prostate surgery) Social history: , lives with family Family history: diabetes, hypertension Medications and Allergies Allergies Allergy/AdvReac Type Severity Reaction Status Date / Time aspirin Allergy Unknown Verified 04/23/22 11:42 ibuprofen Allergy Hives Verified 04/23/22 11:42 nitroglycerin Allergy Rash , Verified 04/23/22 11:42 [From Nitro-Dur] VOMITING Home Medications Medication Instructions Recorded Confirmed Last Taken Type Fluticasone/Vilanterol [Breo 1 puff PO DAILY 30 Days #1 inh 06/06/21 04/22/22 04/22/22 05:00 Rx Ellipta 100-25 Mcg INH] amLODIPine 5 mg PO DAILY 30 Days #30 tablet 06/06/21 04/22/22 04/22/22 05:00 Rx Albuterol Sulfate [Proair 90 mcg IH PRN PRN 03/05/22 04/01/22 Unknown History Respiclick] Mirtazapine 7.5 mg PO DAILY 03/05/22 04/22/22 04/21/22 09:00 History Multivit-Min/FA/Lycopen/Lutein 1 each PO DAILY 03/05/22 04/22/22 04/21/22 09:00 History [Centrum Silver Men Tablet] Omeprazole 20 mg PO DAILY 03/05/22 04/22/22 04/22/22 05:00 History megestroL [Megestrol] 20 mg PO DAILY 03/05/22 04/22/22 04/21/22 09:00 History ALBUTEROL NEB's [Proventil 0.083% 2.5 mg IH QID PRN 04/23/22 04/23/22 Unknown History NEBS] Ipratropium [Atrovent] 0.5 mg IH QID 04/23/22 04/23/22 Unknown History Metoprolol Xl [Metoprolol 12.5 mg PO QDAY 04/23/22 04/23/22 04/22/22 History SUCCINATE ER TAB] Active Meds: Active Medications Acetaminophen (Acetaminophen 325 Mg Tab) 650 mg PO Q4H PRN PRN Reason: Pain, Mild (1-3)/Fever > 100.5 Hydrocodone Bitart/Acetaminophen (Hydrocodone/Acetaminophen 5-325 Mg Tab) 2 each PO Q4H PRN PRN Reason: Pain, Moderate (4-6) Albuterol (Albuterol 2.5 Mg/3 Ml Nebu) 2.5 mg IH Q4HRT PRN PRN Reason: Shortness Of Breath Amlodipine Besylate (Amlodipine 5 Mg Tab) 5 mg PO DAILY [facility] Last Admin: 04/23/22 10:36 Dose: 5 mg Arformoterol Tartrate (Arformoterol 15 Mcg/2 Ml Nebu) 15 mcg IH Q12HRT [facility] Last Admin: 04/23/22 09:12 Dose: 15 mcg Budesonide (Budesonide 0.5 Mg/2 Ml Nebu) 0.5 mg IH Q12HRT [facility] Last Admin: 04/23/22 09:12 Dose: 0.5 mg Sodium Chloride (Nacl 0.9% 1000 Ml) 1,000 mls @ 42 mls/hr IV DIRECT [facility] Last Admin: 04/22/22 22:46 Dose: 42 mls/hr Sodium Chloride (Nacl 0.9%) 100 mls @ 999 mls/hr IV TEJ PRN PRN Reason: Hypotension Megestrol Acetate (Megestrol 20 Mg Tab) 20 mg PO DAILY [facility] Metoprolol Tartrate (Metoprolol Tartrate 25 Mg Tab) 12.5 mg PO BID [facility] Last Admin: 04/23/22 10:36 Dose: 12.5 mg Mirtazapine (Mirtazapine 15 Mg Tab) 7.5 mg PO QHS [facility] Last Admin: 04/22/22 22:47 Dose: 7.5 mg Morphine Sulfate (Morphine 4 Mg/1 Ml Inj) 4 mg IV Q4H PRN PRN Reason: Pain , Severe (7-10) Naloxone HCl (Naloxone 0.4 Mg/1 Ml Inj) 0.1 mg IV Q2MIN PRN PRN Reason: Res Rate </= 8 or 02 SAT < 92% Ondansetron HCl (Ondansetron 4 Mg/2 Ml Inj) 4 mg IV Q8H PRN PRN Reason: Nausea And Vomiting Pantoprazole Sodium (Pantoprazole 20 Mg Tab) 20 mg PO QDAY [facility] Last Admin: 04/23/22 10:36 Dose: 20 mg Sodium Chloride (Sodium Chloride 0.9% Irrig Soln 2000 Ml) 2,000 ml IR DIRECT [facility] Last Admin: 04/23/22 06:44 Dose: 2,000 ml Review of Systems Constitutional: no fever, no chills Cardiovascular: no chest pain, no palpitations, no edema, no leg edema Respiratory: no cough, no shortness of breath Gastrointestinal: no abdominal pain, no nausea, no vomiting Genitourinary Male: other (Urinary retention), no dysuria Exam - Vital Signs Vital signs: Vital Signs Temp Pulse Resp BP Pulse Ox 98.3 F 76 20 130/61 98 04/03/22 11:00 04/03/22 11:00 04/03/22 11:00 04/03/22 11:00 04/03/22 11:00 - General Appearance General appearance: other (Awake & verbally responsive) EENT: PERRL Neck: Present: neck supple. Absent: JVD/HJR Respiratory: Other (Good air entry) Heart: regular, S1S2 Gastrointestinal: Present: normal, other (Suprapubic Cath in place) Integumentary: warm and dry Neurologic: other (Moves all limbs) Psychiatric: mood/affect appropriate Results - Lab Results 04/22/22 07:45 04/23/22 10:52 Most recent lab results Calcium 8.1 mg/dL (8.4-10.2) L 04/23/22 10:52 Assessment and Plan [facility] - F/u on meds BPH/Urinary Retention - S/p surgery with Suprapubic Cath & Mirza Cath in place Thanks very much for consult, will f/u with you
--- NOTE | 2022-04-23 17:25 | Progress Note ---
Assessment and Plan Assessment and plan: (1) Hypertension Current Visit: Yes Status: Acute Qualifiers: Hypertension type: primary hypertension Qualified Code(s): I10 - Essential (primary) hypertension Plan to address problem: Monitor blood pressure every shift, continue medical management. (2) Diabetes Current Visit: Yes Status: Acute Plan to address problem: Consistent carbohydrate diet, Accu-Chek, continue current therapy. (3) Malnutrition Current Visit: Yes Status: Acute Qualifiers: Protein-calorie malnutrition severity: moderate Plan to address problem: Continue protein intake, dietary supplementation. (4) GERD (gastroesophageal reflux disease) Current Visit: Yes Status: Acute Qualifiers: Esophagitis presence: without esophagitis Qualified Code(s): K21.9 - Gastro-esophageal reflux disease without esophagitis Plan to address problem: PPI therapy, supportive care. (5) Advance care planning Current Visit: Yes Status: Acute Plan to address problem: Disease education done, care plan discussed, diagnoses discussed, prognosis discussed, patient is full code. Patient and family acknowledge understanding a greement with care plan, +30 minutes. Thank you for this interesting consult. The hospitalist service will be signing off now. Please do not hesitate to reach out should any questions arise. Disposition Plan: Continue medical management Total Time Spent with Patient (Minutes): 45 minutes History Interval history: No acute events overnight. Hospitalist Physical - Constitutional Vitals: Temp Pulse Resp BP Pulse Ox 98.2 F 66 20 112/56 100 04/23/22 04:24 04/23/22 11:12 04/23/22 09:12 04/23/22 11:12 04/23/22 11:12 General appearance: Present: no acute distress, cachectic - EENT Eyes: Present: PERRL, EOM intact ENT: clear oral mucosa, edentulous, other (Severely diminished hearing) - Neck Neck: Present: supple, normal ROM - Respiratory Respiratory effort: normal Respiratory: bilateral: diminished - Cardiovascular Rhythm: regular Heart Sounds: Present: S1 & S2 - Extremities Extremities: no ischemia, pulses intact, pulses symmetrical, No edema, normal temperature, normal color Peripheral Pulses: within normal limits - Abdominal General gastrointestinal: soft, non-tender, non-distended, normal bowel sounds - Integumentary Integumentary: Present: clear, warm, dry - Psychiatric Psychiatric: appropriate mood/affect, cooperative - Neurologic Neurologic: CNII-XII intact - Allied Health Allied health notes reviewed: nursing Results - Labs CBC & Chem 7: 04/22/22 07:45 04/23/22 10:52 Labs: Laboratory Last Values WBC 5.0 K/mm3 (4.5-11.0) 04/22/22 07:45 RBC 4.65 M/mm3 (3.65-5.03) 04/22/22 07:45 Hgb 12.9 gm/dl (11.8-15.2) 04/22/22 07:45 Hct 40.3 % (35.5-45.6) 04/22/22 07:45 MCV 87 fl (84-94) 04/22/22 07:45 MCH 28 pg (28-32) 04/22/22 07:45 MCHC 32 % (32-34) 04/22/22 07:45 RDW 16.8 % (13.2-15.2) H 04/22/22 07:45 Plt Count 203 K/mm3 (140-440) 04/22/22 07:45 Sodium 139 mmol/L (137-145) 04/23/22 10:52 Potassium 3.6 mmol/L (3.6-5.0) 04/23/22 10:52 Chloride 101.6 mmol/L (98-107) 04/23/22 10:52 Carbon Dioxide 20 mmol/L (22-30) L 04/23/22 10:52 Anion Gap 21 mmol/L 04/23/22 10:52 BUN 55 mg/dL (9-20) H 04/23/22 10:52 Creatinine 6.3 mg/dL (0.8-1.3) H 04/23/22 10:52 Estimated GFR 10 ml/min 04/23/22 10:52 BUN/Creatinine Ratio 9 % 04/23/22 10:52 Glucose 91 mg/dL (75-100) 04/23/22 10:52 POC Glucose 90 mg/dL (70-105) 04/23/22 11:10 Calcium 8.1 mg/dL (8.4-10.2) L 04/23/22 10:52 SARS-CoV-2 (PCR) Positive (Negative) A 04/03/22 10:55 Blood Type O NEGATIVE 04/22/22 07:45 Antibody Screen Negative 04/22/22 07:45 Mirza/IV: Voiding Method Indwelling Catheter Active Medications - Current Medications Current Medications: Generic Name Dose Route Start Last Admin Trade Name Freq PRN Reason Stop Dose Admin Acetaminophen 650 mg 04/22/22 11:35 Acetaminophen 325 Mg Tab PO Q4H PRN Pain, Mild (1-3)/Fever > 100.5 Hydrocodone Bitart/Acetaminophen 2 each 04/22/22 11:35 Hydrocodone/Acetaminophen 5-325 Mg Tab PO Q4H PRN Pain, Moderate (4-6) Albuterol 2.5 mg 04/22/22 12:03 Albuterol 2.5 Mg/3 Ml Nebu IH Q4HRT PRN Shortness Of Breath Amlodipine Besylate 5 mg 04/23/22 10:00 04/23/22 10:36 Amlodipine 5 Mg Tab PO 5 mg DAILY NITESH Administration Arformoterol Tartrate 15 mcg 04/23/22 08:00 04/23/22 09:12 Arformoterol 15 Mcg/2 Ml Nebu IH 15 mcg Q12HRT NITESH Administration Budesonide 0.5 mg 04/23/22 08:00 04/23/22 09:12 Budesonide 0.5 Mg/2 Ml Nebu IH 0.5 mg Q12HRT NITESH Administration Sodium Chloride 1,000 mls @ 42 mls/hr 04/22/22 13:00 04/22/22 22:46 Nacl 0.9% 1000 Ml IV 42 mls/hr DIRECT NITESH Administration Sodium Chloride 100 mls @ 999 mls/hr 04/23/22 11:46 Nacl 0.9% IV TEJ PRN Hypotension Megestrol Acetate 20 mg 04/23/22 10:00 04/23/22 10:00 Megestrol 20 Mg Tab PO 20 mg DAILY NITESH Administration Metoprolol Tartrate 12.5 mg 04/22/22 22:00 04/23/22 10:36 Metoprolol Tartrate 25 Mg Tab PO 12.5 mg BID NITESH Administration Mirtazapine 7.5 mg 04/22/22 22:00 04/22/22 22:47 Mirtazapine 15 Mg Tab PO 7.5 mg QHS NITESH Administration Morphine Sulfate 4 mg 04/22/22 11:35 Morphine 4 Mg/1 Ml Inj IV Q4H PRN Pain , Severe (7-10) Naloxone HCl 0.1 mg 04/22/22 11:35 Naloxone 0.4 Mg/1 Ml Inj IV Q2MIN PRN Res Rate </= 8 or 02 SAT < 92% Ondansetron HCl 4 mg 04/22/22 12:00 Ondansetron 4 Mg/2 Ml Inj IV Q8H PRN Nausea And Vomiting Pantoprazole Sodium 20 mg 04/23/22 10:00 04/23/22 10:36 Pantoprazole 20 Mg Tab PO 20 mg QDAY NITESH Administration Sodium Chloride 2,000 ml 04/22/22 23:45 04/23/22 06:44 Sodium Chloride 0.9% Irrig Soln 2000 Ml IR 2,000 ml DIRECT NITESH Administration Nutrition/Malnutrition Assess - Dietary Evaluation Nutrition/Malnutrition Findings: Nutrition Notes Start: 04/23/22 16:01 Freq: Status: Active Protocol: Document 04/23/22 16:01 ATUL (Rec: 04/23/22 16:25 ATUL [id number]) Nutrition Notes Need for Assessment 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 Current Diet Consistent Carbohydrates Diet (since L 04/22). Labs/Tests 04/23: CO2 20, BUN 55, Crea 6. 3, Ca 8.1. Pertinent Medications 04/23: Nutritionally unremarkable. 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 No reports available on Pt's PO intake of meals atthe time, will assess at F/U. Pt is on Room Air, O2 saturation @ 98%, according to Physical Assessment History notes. Pt has missing teeth, according to Physical Assessment History notes. Pt shows no signs of concern for skin risk at the time, according to Physical Assessment History notes. Procedure on 04/22: Prostate resection (TURP) and suprapubic cathteter placement , well tolerated, according to Operative Report notes. I will no prescribe dietary supplementation at this time since there is no apparent need for complemement poor or insufficient PO intake of meals. Pt's Low BMI seems to correspond to a natural body composition, and not related to a sudden loss of body weight nor chronic malnutrition, since no signs of concern were mentioned in the Physical Assessment History or the Progress notes. Percent of energy/protein needs met: Prescribed Consistent Carbohydrates Diet provides for energy/protein needs (2, 061 Kcal/91 g) during LOS. Burn Absent Trauma Absent GI Symptoms None Food Allergy No Skin Integrity/Comment Assessment WNL. Minimum of two criteria No Fluid Accumulation N/A Reduced [employer] Strength N/A (non-severe) Protein-Calorie Malnutrition N\A #1 Nutrition Diagnosis Underweight Comments: Pt's Low BMI seems to correspond to a natural body composition, and not related to a sudden loss of body weight nor chronic malnutrition, since no signs of concern were mentioned in the Physical Assessment History or the Progress notes. Etiology Uncertain. As Evidenced by Signs and Symptoms Low BMI. Is patient on ventilator? No Is Patient Ambulatory and/or Out of Bed No REE-([facility]-confined to bed) 1569.516 Kcal/Kg value to use for calculation 37 Approximate Energy Requirements Using 2182 kcal/Kg Calculation Used for Recommendations Kcal/kg Additional Notes Protein: 0.6-0.8 g/Kg IBW; 47- 62 g/day. Fluids: 1 ml/Kcal, or as per MD. Nutrition Intervention Change Diet Order: Continue Consistent Carbohydrates Diet. Goal #1 Adjust the dietary intervention to better serve Pt's needs and clinical conditions during LOS. Follow-Up By: 04/30/22 Additional Comments Continue monitoring food tolerance, %PO intake of meals , and BM.
[2022-04-23 19:27] VITALS: BP 128/72
== END 2022-04-23 18:10 | disposition home or self-care (01) ==
LOC: OR 06:49 → 3A 11:37
PROVIDERS: ADMIT Urology; ATTEND Urology
DX: U07.1 COVID-19 (principal); N40.1 Benign prostatic hyperplasia with lower urinary tract symptoms; R33.8 Other retention of urine; N36.8 Other specified disorders of urethra; I11.0 Hypertensive heart disease with heart failure; I50.9 Heart failure, unspecified; E11.9 Type 2 diabetes mellitus without complications; J44.9 Chronic obstructive pulmonary disease, unspecified; G43.909 Migraine, unspecified, not intractable, without status migrainosus; E46 Unspecified protein-calorie malnutrition; K21.9 Gastro-esophageal reflux disease without esophagitis; Z79.82 Long term (current) use of aspirin; Z79.899 Other long term (current) drug therapy; Z98.890 Other specified postprocedural states; Z68.1 Body mass index [BMI] 19.9 or less, adult
CPT/HCPCS: 36415; 52601; 74420; 80048; 82962; 85027; 86850; 86900; 86901; 88305; 94640; 96365; 96366; G0257; G0378; J0690; J1100; J2001; J2250; J2370; J2405; J2704; J3010; J3490; J7030; Q9967; U0003